=== PATIENT | female | born 1935 | race Caucasian/White ===

== ENCOUNTER → 2016-04-05 | Outpatient (CLI) | payer MEDICARE ==
[2016-04-05 14:01] LABS: CALCIUM LEVEL 9.4 MG/DL (8.8-10.2); CREATININE FOR GFR 1.15 MG/DL (0.55-1.02); GLOMERULAR FILTRATION RATE 48.3 (>32); POTASSIUM SERUM 5.1 MEQ/L (3.5-5.1)
[2016-04-05 14:09] LABS: COLLAGEN ADP 92 SECONDS (56-103)
--- NOTE | 2016-04-05 22:29 | ECGEPIP ---
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 No significant change compared with 10/25/2012. Electronically Signed On 04-05-2016 22:29:16 EST by Indio Ramirez
== END ==
LOC: M LAB 12:44
PROVIDERS: ATTEND Ophthalmology
DX: H25.13 Age-related nuclear cataract, bilateral (principal)

== ENCOUNTER 2016-08-09 14:51 | Observation (INO) | payer MEDICARE ==
[~2016-08-09] VITALS: Ht 167.6 cm; Wt 94.1 kg
[~2016-08-09 14:51] MED LIST: ALEV220T26 PO; COLA100C5 PO; GLIM4TAB PO; IRON65TA PO; JANU100T PO; LATA5OPD OU; LEVO100T5 PO; LEXA1TAB PO; LISI10TA2 PO; METF500T4 PO; REST0.05 OU; SIMV40TA2 PO; SYSTSOL14 OU; TIMO5OPG OU; TRES1INJ SQ
--- NOTE | 2016-08-09 15:47 | REP ---
Clinical: Chest pain . Comparison: 02/03/2014 . Findings: The mediastinum and cardiac silhouette are stable and within normal limits for portable technique. The lung steinberg are clear without acute consolidation, effusion, or pneumothorax. Skeletal structures are intact. Impression: No acute cardiopulmonary process appreciated. Signed by Darian Duron MD 08/09/2016 03:39 P
--- NOTE | 2016-08-09 16:17 | REP ---
Clinical: Pain and swelling . Technique: Rivera scale and color Doppler evaluation using linear high frequency transducer. Findings: Ultrasound examination of the right lower extremity deep venous structures from the common femoral vein to the popliteal vein demonstrates normal compressibility flow and wave patterns in response to respiration and augmentation. There is no evidence for deep venous thrombosis. Impression: No evidence for deep venous thrombosis. Signed by Darian Duron MD 08/09/2016 04:09 P
[2016-08-09 16:40] LABS: BASO % 0.7 % (0.0-1.0); EOS # 0.1 K/mm3 (0.0-0.50); EOS % 2.3 % (0.0-3.0); LARGE UNSTAINED CELL # 0.1 K/mm3 (0.0-0.4); LARGE UNSTAINED CELL % 1.6 % (0.0-4.0); LYMPH # 1.5 K/mm3 (1.5-4.5); LYMPH % 25.5 % (24.0-44.0); MEAN CORPUSCULAR HEMOGLOBIN 23.2 pg (27.0-33.0); MEAN CORPUSCULAR HGB CONC 31.2 g/dl (32.0-36.5); MEAN CORPUSCULAR VOLUME 74.3 fl (80.0-96.0); MONO # 0.2 K/mm3 (0.0-0.8); MONO % 3.9 % (0.0-5.0); NEUTROPHILS # 3.7 K/mm3 (1.8-7.7); PLATELET COUNT, AUTOMATED 347 k/mm3 (150-450); RED CELL DISTRIBUTION WIDTH 15.9 % (11.5-14.5); WHITE BLOOD COUNT 5.6 K/mm3 (4.0-10.0)
[2016-08-09 16:46] LABS: INR 0.99
[2016-08-09 17:12] LABS: ALBUMIN 3.7 GM/DL (3.2-5.2); ALKALINE PHOSPHATASE 62 U/L (45-117); ALT/SGPT 26 U/L (12-78); ANION GAP 7 MEQ/L (8-16); AST/SGOT 20 U/L (15-37); BILIRUBIN,DIRECT 0.1 MG/DL (0.0-0.2); BILIRUBIN,TOTAL 0.4 MG/DL (0.2-1.0); BLOOD UREA NITROGEN 24 MG/DL (7-18); CALCIUM LEVEL 9.1 MG/DL (8.8-10.2); CARBON DIOXIDE LEVEL 28 MEQ/L (21-32); CHLORIDE LEVEL 103 MEQ/L (98-107); CREATININE FOR GFR 1.29 MG/DL (0.55-1.02); FREE T4 1.22 NG/DL (0.76-1.46); GLOMERULAR FILTRATION RATE 42.3 (>32); GLUCOSE, FASTING 209 MG/DL (83-110); POTASSIUM SERUM 4.4 MEQ/L (3.5-5.1); SODIUM LEVEL 138 MEQ/L (136-145); TOTAL PROTEIN 7.8 GM/DL (6.4-8.2)
[2016-08-09 18:07] LABS: FERRITIN 7 NG/ML (8-252); PERCENT SATURATION 5.5 % (13.2-37.4); TOTAL IRON BINDING CAPACITY 435 UG/DL (250-450)
[2016-08-09 18:11] LABS: VITAMIN B12 LEVEL 245 PG/ML (247-911)
[2016-08-09 18:12] LABS: FOLATE 11.8 NG/ML (>5.4)
[2016-08-09] MEDS ORDERED: BIOT10TA2 PO (18:41)
[2016-08-09] MEDS ORDERED: VITA200038 PO (18:41)
[2016-08-09] MEDS ORDERED: ACETAMINOPHEN TAB 650MG DOSE (2X325MG) PO PRN (20:15)
[2016-08-09] MEDS ORDERED: ESCITALOPRAM OXALATE 10 MG TAB (LEXAPRO) PO SCH (21:00)
[2016-08-09] MEDS ORDERED: SITagliptin 50 MG TAB (JANUVIA) PO SCH (21:00)
[2016-08-09] MEDS: SENOKOT S TAB PO SCH (21:00)
[2016-08-09] MEDS ORDERED: LATANOPROST 0.005% OPHTH SOLN 2.5 ML OU SCH (21:00)
[2016-08-09] MEDS ORDERED: SIMVASTATIN 40 MG TAB PO SCH (21:00)
[2016-08-09] MEDS ORDERED: FERROUS SULFATE 325MG TAB PO SCH (21:00)
--- NOTE | 2016-08-09 23:02 | HPE ---
DATE OF ADMISSION: 08/09/2016 PRIMARY CARE PROVIDER: Dr. Kulkarni ATTENDING PHYSICIAN: Dr. Jennings CHIEF COMPLAINT: Abnormal blood test. HISTORY OF THE PRESENT ILLNESS: The patient is an 81-year-old white female with several chronic medical conditions listed below, came to the emergency room (ER) for evaluation of abnormal blood test. History is provided by herself, and she is a reliable historian. Per the patient, about 5 years ago, she was found to have anemia. She underwent esophagogastroduodenoscopy (EGD) as well as colonoscopy, which did not find any bleeding source. She received transfusion at that time. She is supposed to continue to take iron tablets; however, she discontinued recently because she said it gives her very severe constipation. Recently, about 1 or 2 weeks, she said she felt short of breath and chest heaviness, particularly when she ambulates around. And she scheduled to see her primary care provider (PCP) for premedical clearance for her cataract surgery, and she underwent blood test and her primary care doctor, Dr. Kulkarni, told her today her hemoglobin is low and asked that she come back to the hospital for transfusion and asked her to delay her cataract surgery. Otherwise she denies any other symptoms. REVIEW OF SYSTEMS: Denies fever. No chills. No headache. No blurred vision. No sore throat. No chest pain. No cough. No nausea, no vomiting. No abdominal pain. No black stools. No tingling, numbness or weakness in the arms or lower extremities. All other systems were reviewed but negative. PAST MEDICAL HISTORY: 1. Hypertension. 2. Type 2 diabetes. 3. Dyslipidemia. 4. Hypothyroidism. 5. Chronic anemia. PAST SURGICAL HISTORY: 1. Hysterectomy. 2. Appendectomy. FAMILY HISTORY: Both parents and her father and mother had a history of high blood pressure. ALLERGIES: No known drug allergies. SOCIAL HISTORY: Denies tobacco use. Denies alcohol abuse. Denies illicit drug abuse. She is a FULL CODE. MEDICATIONS: Are reviewed. PHYSICAL EXAMINATION: VITAL SIGNS: Temperature 98, heart rate 68, respirations 20, blood pressure 129/60, oxygen saturation is 100% on room air. GENERAL: She is awake, alert, oriented times three. She is not in acute distress. HEENT: Atraumatic. Pupils are equal, round, reactive to light. Ears, nose, and mouth are normal. NECK: No jugular venous distention (JVD). No bruits. LUNGS: Clear. No crackles, no wheezing. HEART; S1, S2 regular. No murmur. ABDOMEN: Soft. Bowel sounds positive, nontender. LOWER EXTREMITIES: No edema in her bilateral lower extremities. SKIN: No rash. No decubitus ulcer. NEUROLOGIC: Nonfocal. Cranial nerves II-XII grossly intact. PSYCHOLOGIC: No depression. No acute psychosis. DIAGNOSTIC AND LAB STUDIES: CBC and differential shows WBC 5.6, hemoglobin and hematocrit 8.1 over 25.8 and platelets 347. Sodium 138, potassium 4.4, chloride 103, bicarbonate 28, BUN is 27, creatinine is 1.29 and glucose is 209. Total iron is 24, transferrin saturation is 5.5%. Liver function test was normal. Chest x-ray normal and lower extremity Doppler, which was normal. IMPRESSION: 1. Iron deficiency anemia. 2. History of high blood pressure. 3. Type 2 diabetes. 4. Dyslipidemia. 5. Hypothyroidism. PLAN: Patient will be admitted to medical-surgical floor for observation. She will type and cross transfuse two units of packed red blood cells due to symptomatic anemia. She had a full workup 5 years ago including esophagogastroduodenoscopy (EGD) and a colonoscopy, which was negative, and her stool was negative for guaiac in the ER today. She may followup with her primary care provider and refer her to see a computer numerical control machinist for possible repeat EGD as well as colonoscopy. Otherwise, she is medically stable. [facility]
[2016-08-09 23:23] VITALS: BP 158/77
[2016-08-10] MEDS: TIMOLOL XE GFS 0.5% OPHTH 5 ML OU SCH ×2 (01:17→10:12)
[2016-08-10] MEDS: metFORMIN XR 500MG TAB *GLUCOPHAGE XR PO SCH ×2 (01:17→10:11)
[2016-08-10 06:00] VITALS: BP 158/78
[2016-08-10] MEDS ORDERED: LEVOTHYROXINE 100MCG TABLET (0.1MG) PO SCH (06:00)
[2016-08-10 06:37] LABS: MEAN CORPUSCULAR HEMOGLOBIN 24.5 pg (27.0-33.0); MEAN CORPUSCULAR HGB CONC 32.1 g/dl (32.0-36.5); MEAN CORPUSCULAR VOLUME 76.5 fl (80.0-96.0); PLATELET COUNT, AUTOMATED 316 k/mm3 (150-450); RED CELL DISTRIBUTION WIDTH 16.9 % (11.5-14.5); WHITE BLOOD COUNT 8.2 K/mm3 (4.0-10.0)
[2016-08-10 06:46] LABS: CALCIUM LEVEL 8.7 MG/DL (8.8-10.2); CREATININE FOR GFR 1.09 MG/DL (0.55-1.02); GLOMERULAR FILTRATION RATE 51.4 (>32); POTASSIUM SERUM 3.8 MEQ/L (3.5-5.1)
[2016-08-10] MEDS ORDERED: GLIMEPIRIDE 2 MG TAB PO SCH (07:30)
[2016-08-10 07:31] LABS: RETIC HEMOGLOBIN CONTENT CHr 25.5 PG (24-36); RETICULOCYTE ABSOLUTE ADVIA212 80 x10(9)/L (17-77)
--- NOTE | 2016-08-10 07:35 | ECGEPIP ---
Stationary ECG Study [facility] - ED Test Date: 2016-08-09 Pat Name: GENI HOWARD Department: Room: - Gender: F Director Of Rehabilitation: JT : 1935 Requested By: Cierra Jeronimo Order Number: [id number] Reading MD: Cierra Jeronimo Measurements Intervals [place] Rate: 68 P: 72 PA: 185 QRS: 37 QRSD: 79 T: 85 QT: 398 QTc: 426 Interpretive Statements SINUS RHYTHM NONSPECIFIC T-WAVE ABNORMALITY DECREASED RATE 04/05/16 Electronically Signed On 08-10-2016 7:34:50 EDT by Cierra Jeronimo
[2016-08-10 07:41] LABS: PERCENT SATURATION 19.7 % (13.2-37.4)
[2016-08-10 07:43] LABS: REASON FOR REVIEW COMPREHENSIVE REVIEW
[2016-08-10] MEDS ORDERED: GLUCOSE 4 GM CHEW TABLET PO PRN (08:15)
[2016-08-10] MEDS ORDERED: GLUCAGON FOR INJ 1 MG VIAL (J1610) SC PRN (08:15)
[2016-08-10] MEDS ORDERED: DEXTROSE 50% 50 ML SYRINGE IV PRN (08:15)
[2016-08-10] MEDS ORDERED: SENN1TAB2 PO (08:54)
[2016-08-10] MEDS ORDERED: IRON65TA PO (08:54)
[2016-08-10] MEDS ORDERED: hydroCHLOROthiazide 12.5 MG CAPSULE PO SCH (09:00)
[2016-08-10] MEDS ORDERED: VITAMIN D 1,000 INTERNATIONAL UNITS TABLET PO SCH (09:00)
[2016-08-10] MEDS ORDERED: LISINOPRIL 10 MG TAB PO SCH (09:00)
[2016-08-10] MEDS: SENOKOT S TAB PO SCH (10:11)
[2016-08-10 10:12] VITALS: BP 158/71
[2016-08-10] MEDS ORDERED: B121000T PO (13:10)
--- NOTE | 2016-08-10 13:51 | DSES ---
DATE OF ADMISSION: 08/09/2016 DATE OF DISCHARGE: 08/10/2016 DISCHARGE DIAGNOSIS: Symptomatic anemia. SECONDARY DIAGNOSES: 1. Constipation. 2. Hypertension. 3. Type 2 diabetes. 4. Dyslipidemia. 5. Hypothyroidism. HOSPITAL COURSE: The patient is an 81-year-old female who was having preoperative risk stratification completed by her primary care provider and was found to have anemia. The patient reported that she has been feeling unwell for the last several weeks since she stopped taking her iron supplement. She tells me that she was having dyspnea on exertion and fatigue prior to presenting to the emergency room where she was found to have a hemoglobin of 8.1. She did receive 2 units and her hemoglobin improved to 9.5. She was found with appropriate reticulocytosis, but has significant iron deficiency anemia. The patient reportedly had EGD and colonoscopy five years ago without any etiology found to explain her iron deficiency anemia. She was also reportedly seen by ms sql developer in [place] at the same time and tells me that she had every test in the world done and there was no answer given to her as to why she has iron deficiency anemia. She has been stable on iron supplementation for several years; however, since she has stopped taking it in the recent weeks due to constipation. The patient reports that she feels completely back to normal after 2 units of packed red blood cells. Occult stool for blood in the emergency room was negative. There is no evidence of acute bleeding or acute hemorrhage. She has had a positive response to blood. At this time, she is medically stable for discharge home. SUBJECTIVE: The patient reports that she feels well. She has no complaints and wants to go home. VITAL SIGNS: Temperature 99.6, pulse 72, respiratory rate 19, blood pressure 158/78, oxygen saturation 96% on room air. GENERAL: She is a very pleasant, elderly, female, obese, lying flat in bed in no distress. HEENT: Cranial nerves II-XII are grossly intact. She has moist mucous membranes. No elevation in central venous pressure. She is not pale. CARDIOVASCULAR EXAMINATION: S1, S2 regular. RESPIRATORY EXAMINATION: Clear. ABDOMINAL EXAMINATION: Grossly obese. EXTREMITIES: No clubbing, cyanosis or edema. LABORATORY DATA: WBC 8.2, hemoglobin 9.5, hematocrit 29.5, platelet count 316. Reticulocyte percent 2.0. Chemistry panel: Sodium 141, potassium 3.8, chloride 106, bicarbonate 29, TSH within normal limits. INR within normal limits. Peripheral smear reveals microcytic hypochromic anemia with increased reticulocytosis suggestive of iron deficiency anemia of occult blood loss. She had a duplex of the lower extremities that did not reveal deep vein thrombosis (DVT). ASSESSMENT AND PLAN: This is an 81-year-old female with symptomatic anemia, status post transfusion. 1. Symptomatic anemia, resolved, status post transfusion. Etiology for symptomatic anemia remains unclear. Although she has had an extensive workup in the past, it appears to be a very slow chronic process and normally controlled with oral iron supplementation. At this time, she has been restarted on oral iron supplementation, adherent to compliance and necessity of this medication have been stressed. She is also started on stool softener to help remove the constipation, which mitigated her from using it in the past. I recommend that she undergo an outpatient workup once again to explore etiologies for her iron deficiency anemia, including repeat EGD, colonoscopy and possibly even repeat hematology consultation. At this time, I will also start her on B12 supplementation, as B12 level is quite low also. 2. Vitamin D deficiency. Continue with supplementation. 3. Mood disorder. Continue with Lexapro. 4. Type 2 diabetes. Continue with glimepiride, metformin and Januvia. 5. Dry eyes. Continue with drops. 6. Cataracts. Continue with Timolol, Xalatan. 7. Hypothyroidism. Continue with Synthroid. 8. Hypertension. Continue with hydrochlorothiazide/Lisinopril combination. 9. Osteoarthritis. Continue with naproxen. 10. Dyslipidemia. Continue with simvastatin. DISPOSITION: The patient is being discharged home. She is independent with her activities of daily living and at her functional baseline. Her clinical status is improved. Activity and diet are as prior to admission. She is to followup with her primary care provider within 7 days. She is to return to the emergency room if her symptoms worsen. DISCHARGE MEDICATIONS: At the time of discharge: - vitamin B12 1000 mcg daily - Senna 8.6/50 one tablet twice a day - Biotin, vitamin H daily - vitamin D3 2000 units daily - Lexapro 10 mg at night - glimepiride 4 mg daily - Xalatan one drop in each eye daily at bedtime - Synthroid 100 mcg daily - Lisinopril/hydrochlorothiazide 10/12.5 mg at night - metformin 1 gram twice a day - naproxen 220 mg once daily as needed - Restasis 0.5% one drop in each eye twice a day - simvastatin 40 mg at night - Januvia 100 mg at bedtime - Systane 0.6% solution one drop in each eye twice a day - Timolol 0.5% one drop in each eye twice a day - Tresiba flex touch 108 units subcutaneously at night - iron 325 mg by mouth twice a day Greater than 30 minutes was spent organizing safe disposition. MTDD
== END 2016-08-10 12:08 | disposition home or self-care (01) ==
LOC: M ED 14:51 → M ED INP 20:11 → M MSPAV 23:22
PROVIDERS: ADMIT Hospitalist; ATTEND Internal Medicine
DX: D64.9 Anemia, unspecified (principal); E55.9 Vitamin D deficiency, unspecified; K59.00 Constipation, unspecified; R06.02 Shortness of breath; I10 Essential (primary) hypertension; E11.9 Type 2 diabetes mellitus without complications; E78.5 Hyperlipidemia, unspecified; E03.9 Hypothyroidism, unspecified; F39 Unspecified mood [affective] disorder; Z79.899 Other long term (current) drug therapy
CPT/HCPCS: 36415; 36430; 71010; 80048; 80076; 82550; 82553; 82607; 82728; 82746; 83550; 83880; 84439; 84443; 84484; 85025; 85027; 85046; 85610; 86850; 86870; 86900; 86901; 86920; 93005; 93041; 93971; 94760; 99285; G0378; P9016

== ENCOUNTER 2016-09-22 09:36 | Day surgery (SDC) | payer MEDICARE ==
--- NOTE | 2016-09-14 18:48 | CR ---
PREOPERATIVE EVALUATION: 09/07/2016 CONSULTING PHYSICIAN: Jon bunch MD SURGEON: Bishnu Collins DO PROPOSED PROCEDURE: Cataract extraction. HISTORY OF PRESENT ILLNESS: This is a very pleasant 81-year-old patient of mine who presents today for operative evaluation and consultation. Previous evaluation lead to the finding the patient was acutely anemic and required transfusions. At this point, the patient feels significantly better after receiving two units, although she continues to be somewhat anemic. It appears relatively slow that she should be able to have surgery without difficulty. The patient's other medical issues are generally stable. She does have uncontrolled diabetes, but blood sugars have improved. She had a rule out evaluation for myocardial infarction ([place]) during the hospital stay for which she had her evaluation and was found not to have any acute cardiac issues. She denies any respiratory issues. No history of asthma, has done well previously. The patient's surgery is now planned for 09/16/2016 and appears appropriate. Again, she has had no respiratory or anesthesia issues. No known cardiac issues; however, there is significant risk due to her diabetes, hypertension, hyperlipidemia and now new anemia for which she is occult blood negative. PAST MEDICAL HISTORY: 1. Type 2 diabetes. 2. Hypertension. 3. Hyperlipidemia. 4. Hypothyroidism. 5. Acute on chronic anemia. 6. Glaucoma. PAST SURGICAL HISTORY: 1. Appendectomy. 2. 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 Roldan in 1972. MEDICATIONS INCLUDE: - metformin 500 mg two tablets twice a day - Tresiba 108 units subcutaneous daily - Colace 100 mg twice a day - ferrous sulfate 325 mg daily - timolol eye drops every morning - levothyroxine 100 mcg by mouth daily - lisinopril/hydrochlorothiazide 10/12.5 mg daily - glimepiride 1 mg by mouth daily - simvastatin 40 mg daily - Januvia 100 mg daily - Xalatan eye drops - Lexapro 10 mg daily ALLERGIES: No known drug allergies. FAMILY HISTORY: Father of a myocardial infarction ([place]), mother due to Alzheimer's. SOCIAL HISTORY: The patient is retired. Her previously works for the [employer]. He in 1990. They have no children together. She has three brothers, who live locally and their families. She has no children of her own. She is a former smoker, smoked from ages 20 to 36, quit at age 36. Denies any alcohol use. REVIEW OF SYSTEMS: As per history of present illness. Otherwise 10 system review she is specifically not having any cardiac symptoms. No chest pain, pressure, headaches, vision changes, respiratory issues. She feels good when she exerts herself. PHYSICAL EXAMINATION: GENERAL: This is a very pleasant woman of her stated age , in no acute distress, nontoxic, alert and oriented times three. She is somewhat anxious. HEENT: Atraumatic, normocephalic. Pupils equal, round, and reactive to light and accommodation. Extraocular motion is intact. No lesions of the lid or conjunctivae. Oral cavity and oropharynx are benign, as is the remainder of the face. NECK: Supple. No lymphadenopathy or thyromegaly. HEART: Regular rate and rhythm. S1, S2. No murmurs LUNGS: Clear to auscultation bilaterally. No rales, rhonchi or wheezes. ABDOMEN: Obese, but soft, nontender, nondistended. EXTREMITIES: No clubbing, cyanosis or edema today. NEUROLOGIC: Nonfocal. RECENT LABORATORY: Show glucose 171, creatine of 1.2. The remainder of the electrolytes are normal. White blood count (WBC) of 5.5, hemoglobin 8.5, platelets 299. Electrocardiogram (EKG) completed 08/09/2016. Normal sinus rhythm with some nonspecific ST-T changes that had not changed from prior. The patient did have a rule out in the emergency department (ED) recently with labs and two units of blood, but has been doing significantly well since then. IMPRESSION: 1. Preoperative evaluation and consultation: The patient is at risk with known diabetes, as well as some anemia. She does appear appropriate for having cataract surgery at this point in time and will followup with me closely, as well as hematology for her acute on chronic anemia. On recent evaluation, the patient was symptomatic, but at this point in time is not symptomatic and looks forward to surgical intervention. Fortunately, she has no significant respiratory issues, although she is obese and precaution should be taken. She has no known snoring or apneic spells. The patient otherwise has had no issues with anesthesia in the past and feels well and again is appropriate for surgery at this time. 2. Cataracts. The patient looks forward to cataract extraction and better vision. 3. Diabetes type 2. The patient's hemoglobin A1c has been elevated over 10. She has been working on this. However, looks forward to cataract extraction and feels that this is important for her, although she does understand the need for ongoing improvement in her blood sugar control. 4. Hypertension on good control on present medication, will continue. 5. Hypothyroidism, doing well on present dose of levothyroxine, will continue. 6. Anemia. The patient recently had transfusion and will be following up for further evaluation, but appears to be appropriate for cataract surgery at this point. 7. Glaucoma. The patient is following Dr. Collins for this. 8. Mood disorder. Good results on Lexapro. The patient is very pleasant, interactive. 9. Hyperlipidemia. Doing well on simvastatin with good results. 10. Ongoing care. I am going to see her again in the office as discussed. She will also be seen in hematology and will followup appropriately. BLANCA
[~2016-09-22] VITALS: Ht 167.6 cm; Wt 89.8 kg
[~2016-09-22 09:36] MED LIST changes: +ACETYLCHOLINE OPHTH SOLN 1% 2ML (MIOCHOL-E) As Ordered ONE; +B121000T PO; +BALANCED SALT IRRIGATION SOLUTION 500ML BAG (FOR OR EYE MACHINE) As Ordered ONE; +BIOT10TA2 PO; +DUOVISC (0.50ML VISCOAT/0.55ML PROVISC) OPHTH KIT As Ordered ONE; +LIDOCAINE 0.75%/EPINEPHRINE 0.025% IN BSS 1ML SYR INTRACAMERAL (OR ONLY) As Ordered ONE; +LIDOCAINE 4% INJ 5 ML AMP As Ordered ONE; +MIDAZOLAM INJ 2 MG/2 ML VIAL (J2250) As Ordered ONE; +OFLOXACIN 0.3 % (OCUFLOX) OPTH SOL 5ML XX ONE; +PHENYLEPHRINE 2.5% OPHTH SOL 2ML XX ONE; +POVIDONE-IODINE 5% OPHTH PREP SOL 30ML As Ordered ONE; +PROPARACAINE 0.5% OPHTH SOL 15ML XX ONE; +SENN1TAB2 PO; +TROPICAMIDE 1% OPHTH SOLN 2ML XX ONE; +VITA200038 PO; +fentaNYL 100 MCG/2 ML INJECTION (J3010) As Ordered ONE
[2016-09-22] MEDS ORDERED: LIDOCAINE 1% SDV 5 ML VIAL SQ ONE (09:45)
[2016-09-22] MEDS ORDERED: LR 1,000 ML IV ONE (09:45)
[2016-09-22 12:00] VITALS: BP 112/53
[2016-09-22] MEDS ORDERED: CEFUROXIME 1MG/0.1ML INTRACAMERAL INJ As Ordered ONE (14:27)
[2016-09-22] MEDS ORDERED: LIDOCAINE 4% TOPICAL SOLN 50 ML BTL TOP ONE (17:31)
--- NOTE | 2016-09-23 07:00 | RO ---
DATE OF PROCEDURE: 09/22/2016 PREOPERATIVE DIAGNOSIS: Visually significant nuclear sclerotic cataract left eye. POSTOPERATIVE DIAGNOSIS: Visually significant nuclear sclerotic cataract left eye. PROCEDURE: Cataract extraction with use of phacoemulsification, and placement of intraocular lens, AU00T0, 21.0 diopter left eye. SURGEON: Bishnu Collins DO CANTILEVER CRANE OPERATOR: ANESTHESIA: Local with monitored anesthesia care (MAC). COMPLICATIONS: None. POSTOPERATIVE CONDITION: Stable. INDICATION FOR SURGERY: Blurred vision left eye affecting patient's activities of daily living. DESCRIPTION OF PROCEDURE: The patient was seen in the preoperative area and properly identified. The correct operative eye was identified and marked. Attention was turned to that eye. The patient received topical antibiotics in the preoperative area. The patient then received topical dilating drops consisting of Tropicamide and Phenylephrine. The patient was then transferred to the operating room. The correct side was re-identified. The patient received topical anesthetics and antibiotics on the surface of the eye. The eye was prepped and draped in a sterile fashion. The upper and lower eyelids were isolated with Tegaderm tape, and the lids were held open with an adjustable speculum. Using a sideport blade, a paracentesis incision was made. Intraocular preservative-free lidocaine was then injected into the anterior chamber. Viscoelastic was then injected into the anterior chamber through the paracentesis. Using a 2.65 mm sharp-tipped keratome, the anterior chamber was entered via a temporal clear corneal incision. A continuous curvilinear capsulorrhexis was created with the aid of a 26g cystotome and utrata forceps. Hydrodissection was performed with balanced salt solution (BSS) on a blunt cannula until the nucleus was freely mobile. The crystalline lens was phacoemulsified and aspirated. Additional cohesive viscoelastic was placed into the capsular bag to deepen it. An AU00T0, 21.0 diopter lens was placed into the capsular bag and confirmed by visualizing the continuous curvilinear capsulorrhexis. Additional irrigation and aspiration was used to remove cortical material and remaining viscoelastic. The clear corneal incision was hydrated with BSS on a blunt cannula. The lens was well positioned. The incisions were then tested for leaks and found to be negative. The eye was then palpated for appropriate pressure and adjusted accordingly with BSS. The eyelid speculum was carefully removed. A shield was placed over the eye. The patient tolerated the procedure well and was discharged to the recovery unit in a stable condition. BLANCA
== END 2016-09-22 12:11 | disposition home or self-care (01) ==
LOC: M SDC 09:36
PROVIDERS: ATTEND Ophthalmology
DX: H25.12 Age-related nuclear cataract, left eye (principal); I10 Essential (primary) hypertension; E78.5 Hyperlipidemia, unspecified; E11.9 Type 2 diabetes mellitus without complications; Z79.4 Long term (current) use of insulin; E03.9 Hypothyroidism, unspecified; F41.9 Anxiety disorder, unspecified; F32.9 Major depressive disorder, single episode, unspecified; Z87.891 Personal history of nicotine dependence; Z79.899 Other long term (current) drug therapy
CPT/HCPCS: 66984; J2250; J3010; V2632

== ENCOUNTER → 2016-10-13 | Day surgery (SDC) | payer MEDICARE ==
[~2016-10-13] VITALS: Ht 167.6 cm; Wt 90.0 kg
[~2016-10-13] MED LIST changes: +CEFUROXIME 1MG/0.1ML INTRACAMERAL INJ As Ordered ONE; -LIDOCAINE 4% INJ 5 ML AMP As Ordered ONE; +LR 1,000 ML IV SCH; +LR 500 ML ONE; +OFLOXACIN 0.3 % (OCUFLOX) OPTH SOL 5ML OD ONE; +PHENYLEPHRINE 2.5% OPHTH SOL 2ML OD ONE; +PROPARACAINE 0.5% OPHTH SOL 15ML OD ONE; +TROPICAMIDE 1% OPHTH SOLN 2ML OD ONE
[2016-10-13 10:03] VITALS: BP 144/63
--- NOTE | 2016-10-14 15:26 | RO ---
DATE OF PROCEDURE: 10/13/2016 PREOPERATIVE DIAGNOSIS: Visually significant nuclear sclerotic cataract right eye. POSTOPERATIVE DIAGNOSIS: Visually significant nuclear sclerotic cataract right eye. PROCEDURE: Cataract extraction with use of phacoemulsification, and placement of intraocular lens, AU00T0, 22.0 D, right eye. SURGEON: Bishnu Collins DO SPOUT LINER: ANESTHESIA: Local with monitored anesthesia care (MAC). COMPLICATIONS: None. POSTOPERATIVE CONDITION: Stable. INDICATION FOR SURGERY: Blurred vision right eye affecting patient's activities of daily living. DESCRIPTION OF PROCEDURE: The patient was seen in the preoperative area and properly identified. The correct operative eye was identified and marked. Attention was turned to that eye. The patient received topical antibiotics in the preoperative area. The patient then received topical dilating drops consisting of Tropicamide and Phenylephrine. The patient was then transferred to the operating room. The correct side was re-identified. The patient received topical anesthetics and antibiotics on the surface of the eye. The eye was prepped and draped in a sterile fashion. The upper and lower eyelids were isolated with Tegaderm tape, and the lids were held open with an adjustable speculum. Using a sideport blade, a paracentesis incision was made. Intraocular preservative-free lidocaine was then injected into the anterior chamber. Viscoelastic was then injected into the anterior chamber through the paracentesis. Using a 2.6 mm sharp-tipped keratome, the anterior chamber was entered via a temporal clear corneal incision. A continuous curvilinear capsulorrhexis was created with the aid of a 26g cystotome and utrata forceps. Hydrodissection was performed with balanced salt solution (BSS) on a blunt cannula until the nucleus was freely mobile. The crystalline lens was phacoemulsified and aspirated. Additional cohesive viscoelastic was placed into the capsular bag to deepen it. An AU00T0, 22.0 D was placed into the capsular bag and confirmed by visualizing the continuous curvilinear capsulorrhexis. Additional irrigation and aspiration was used to remove cortical material and remaining viscoelastic. The clear corneal incision was hydrated with BSS on a blunt cannula. The lens was well positioned. The incisions were then tested for leaks and found to be negative. The eye was then palpated for appropriate pressure and adjusted accordingly with BSS. The eyelid speculum was carefully removed. A shield was placed over the eye. The patient tolerated the procedure well and was discharged to the recovery unit in a stable condition. BLANCA
== END | disposition home or self-care (01) ==
LOC: M SDC 09:21
PROVIDERS: ATTEND Ophthalmology
DX: H25.11 Age-related nuclear cataract, right eye (principal); I10 Essential (primary) hypertension; E78.5 Hyperlipidemia, unspecified; E11.9 Type 2 diabetes mellitus without complications; E03.9 Hypothyroidism, unspecified; F41.9 Anxiety disorder, unspecified; F32.9 Major depressive disorder, single episode, unspecified; Z87.891 Personal history of nicotine dependence; Z79.899 Other long term (current) drug therapy
CPT/HCPCS: 66984; J2250; J3010; V2632

== ENCOUNTER → 2016-11-02 | Outpatient (REF) | payer MEDICARE ==
[~2016-11-02] MED LIST changes: -ACETYLCHOLINE OPHTH SOLN 1% 2ML (MIOCHOL-E) As Ordered ONE; -BALANCED SALT IRRIGATION SOLUTION 500ML BAG (FOR OR EYE MACHINE) As Ordered ONE; -CEFUROXIME 1MG/0.1ML INTRACAMERAL INJ As Ordered ONE; -DUOVISC (0.50ML VISCOAT/0.55ML PROVISC) OPHTH KIT As Ordered ONE; -LIDOCAINE 0.75%/EPINEPHRINE 0.025% IN BSS 1ML SYR INTRACAMERAL (OR ONLY) As Ordered ONE; -LR 1,000 ML IV SCH; -LR 500 ML ONE; -MIDAZOLAM INJ 2 MG/2 ML VIAL (J2250) As Ordered ONE; -OFLOXACIN 0.3 % (OCUFLOX) OPTH SOL 5ML OD ONE; -OFLOXACIN 0.3 % (OCUFLOX) OPTH SOL 5ML XX ONE; -PHENYLEPHRINE 2.5% OPHTH SOL 2ML OD ONE; -PHENYLEPHRINE 2.5% OPHTH SOL 2ML XX ONE; -POVIDONE-IODINE 5% OPHTH PREP SOL 30ML As Ordered ONE; -PROPARACAINE 0.5% OPHTH SOL 15ML OD ONE; -PROPARACAINE 0.5% OPHTH SOL 15ML XX ONE; -TROPICAMIDE 1% OPHTH SOLN 2ML OD ONE; -TROPICAMIDE 1% OPHTH SOLN 2ML XX ONE; -fentaNYL 100 MCG/2 ML INJECTION (J3010) As Ordered ONE
[2016-11-02 14:56] LABS: TOTAL PROTEIN 7.8 GM/DL (6.4-8.2)
[2016-11-02 18:14] LABS: RETIC HEMOGLOBIN CONTENT CHr 26.5 PG (24-36); RETICULOCYTE % 2.7 % (0.5-1.5)
[2016-11-03 09:12] LABS: FERRITIN 11 NG/ML (8-252); PERCENT SATURATION 10.6 % (13.2-45.0); TOTAL IRON BINDING CAPACITY 405 UG/DL (250-450)
[2016-11-03 13:43] LABS: ALBUMIN 4.06 GM/DL (3.29-5.55); GAMMA GLOBULIN % 18.5 % (11.1-18.8)
== END ==
LOC: M LAB REF 09:45
PROVIDERS: ATTEND Internal Medicine Medical Oncology
DX: D64.9 Anemia, unspecified (principal)

== ENCOUNTER → 2017-01-19 | Outpatient (REF) | payer MEDICARE ==
[2017-01-19 16:48] LABS: PERCENT SATURATION 14.8 % (13.2-45.0)
== END ==
LOC: M LAB REF 15:44
PROVIDERS: ATTEND Internal Medicine Medical Oncology
DX: D50.9 Iron deficiency anemia, unspecified (principal)

== ENCOUNTER → 2017-01-31 | Day surgery (SDC) | payer MEDICARE ==
[~2017-01-31] MED LIST changes: -ALEV220T26 PO; -B121000T PO; -BIOT10TA2 PO; -COLA100C5 PO; -GLIM4TAB PO; -IRON65TA PO; -JANU100T PO; -LATA5OPD OU; -LEVO100T5 PO; -LEXA1TAB PO; -LISI10TA2 PO; -METF500T4 PO; -REST0.05 OU; -SENN1TAB2 PO; +SIMETHICONE 40MG/0.6ML DROPS 30ML As Ordered; -SIMV40TA2 PO; -SYSTSOL14 OU; -TIMO5OPG OU; -TRES1INJ SQ; -VITA200038 PO
== END | disposition home or self-care (01) ==
LOC: M OPP 08:00
DX: D50.9 Iron deficiency anemia, unspecified (principal); Z53.9 Procedure and treatment not carried out, unspecified reason

== ENCOUNTER → 2017-03-15 | Outpatient (REF) | payer MEDICARE ==
[2017-03-15 20:58] LABS: FERRITIN 22 NG/ML (8-252); IRON (FE) 71 UG/DL (50-170); TOTAL IRON BINDING CAPACITY 374 UG/DL (250-450)
== END ==
LOC: M LAB REF 19:50
DX: D50.9 Iron deficiency anemia, unspecified (principal)
CPT/HCPCS: 83550

== ENCOUNTER → 2017-06-01 | Outpatient (REF) | payer MEDICARE, BC ==
[2017-06-01 18:26] LABS: FERRITIN 25 NG/ML (8-252); IRON (FE) 78 UG/DL (50-170); PERCENT SATURATION 20.4 % (13.2-45.0); TOTAL IRON BINDING CAPACITY 382 UG/DL (250-450)
== END ==
LOC: M LAB REF 17:46
DX: D50.9 Iron deficiency anemia, unspecified (principal)
CPT/HCPCS: 83550

== ENCOUNTER 2017-06-30 07:15 | Day surgery (SDC) | payer MEDICARE ==
[~2017-06-30 07:15] MED LIST changes: +LIDOCAINE 2% INJ 100 MG/5 ML SDV (FOR ANES.) As Ordered; +PROPOFOL 200 MG/20 ML VIAL As Ordered; -SIMETHICONE 40MG/0.6ML DROPS 30ML As Ordered
[2017-06-30] MEDS: NS 1,000 ML IV (07:30)
[2017-06-30 07:56] LABS: BEDSIDE GLUCOSE 105 MG/DL (83-110)
== END 2017-06-30 10:01 | disposition home or self-care (01) ==
LOC: M OPP 07:15
DX: D50.9 Iron deficiency anemia, unspecified (principal); D12.2 Benign neoplasm of ascending colon; K57.30 Diverticulosis of large intestine without perforation or abscess without bleeding; K64.8 Other hemorrhoids; K25.9 Gastric ulcer, unspecified as acute or chronic, without hemorrhage or perforation; I10 Essential (primary) hypertension; R07.89 Other chest pain; E78.5 Hyperlipidemia, unspecified; R01.1 Cardiac murmur, unspecified; E11.9 Type 2 diabetes mellitus without complications; E03.9 Hypothyroidism, unspecified; K44.9 Diaphragmatic hernia without obstruction or gangrene; K21.9 Gastro-esophageal reflux disease without esophagitis; R06.02 Shortness of breath; M19.90 Unspecified osteoarthritis, unspecified site; F41.9 Anxiety disorder, unspecified; H40.9 Unspecified glaucoma; Z78.0 Asymptomatic menopausal state; R32 Unspecified urinary incontinence; Z85.42 Personal history of malignant neoplasm of other parts of uterus; Z88.8 Allergy status to other drugs, medicaments and biological substances; Z79.4 Long term (current) use of insulin; Z79.899 Other long term (current) drug therapy; Z80.42 Family history of malignant neoplasm of prostate; Z80.8 Family history of malignant neoplasm of other organs or systems; Z80.3 Family history of malignant neoplasm of breast
CPT/HCPCS: 45385

== ENCOUNTER → 2017-08-30 | Outpatient (REF) | payer MEDICARE ==
[2017-08-31 14:41] LABS: FERRITIN 33 NG/ML (8-252); IRON (FE) 61 UG/DL (50-170); PERCENT SATURATION 18.1 % (13.2-45.0); TOTAL IRON BINDING CAPACITY 337 UG/DL (250-450)
== END ==
LOC: M LAB REF 08-31 13:57
DX: D50.9 Iron deficiency anemia, unspecified (principal)
CPT/HCPCS: 83550

== ENCOUNTER → 2017-08-30 | Outpatient (CLI) | payer MEDICARE ==
[2017-08-30 17:59] LABS: BASO % 0.5 % (0.0-1.0); EOS # 0.1 10^3/uL (0.0-0.50); EOS % 1.2 % (0.0-3.0); HEMATOCRIT 34.1 % (36.0-47.0); HEMOGLOBIN 11.6 g/dl (12.0-15.5); IMMATURE GRANULOCYTE % 0.4 % (0-3.0); LYMPH # 1.8 10^3/uL (1.5-4.5); LYMPH % 24.4 % (24.0-44.0); MEAN CORPUSCULAR HEMOGLOBIN 27.6 pg (27.0-33.0); MONO # 0.4 10^3/uL (0.0-0.8); MONO % 5.7 % (0.0-5.0); NEUTROPHILS % 67.8 % (36.0-66.0); PLATELET COUNT, AUTOMATED 313 10^3/uL (150-450); RED BLOOD COUNT 4.21 10^6/uL (4.00-5.40); RED CELL DISTRIBUTION WIDTH 13.7 % (11.5-14.5); WHITE BLOOD COUNT 7.3 10^3/uL (4.0-10.0)
[2017-08-30 18:12] LABS: ESTIMATED AVERAGE GLUCOSE 303 MG/DL (60-110); HEMOGLOBIN A1c 12.2 %
[2017-08-30 18:25] LABS: ACETONE/KETONE 7.11 MG/DL (<2.81); ALBUMIN 3.6 GM/DL (3.2-5.2); ALBUMIN/GLOBULIN RATIO 0.84 (1.00-1.93); ALKALINE PHOSPHATASE 91 U/L (45-117); ALT/SGPT 23 U/L (12-78); ANION GAP 8 MEQ/L (8-16); AST/SGOT 15 U/L (7-37); BILIRUBIN,TOTAL 0.6 MG/DL (0.2-1.0); BLOOD UREA NITROGEN 26 MG/DL (7-18); CALCIUM LEVEL 8.9 MG/DL (8.8-10.2); CARBON DIOXIDE LEVEL 32 MEQ/L (21-32); CHLORIDE LEVEL 90 MEQ/L (98-107); CREATININE FOR GFR 1.72 MG/DL (0.55-1.30); GLOMERULAR FILTRATION RATE 30.3 (>32); POTASSIUM SERUM 4.7 MEQ/L (3.5-5.1); SODIUM LEVEL 130 MEQ/L (136-145); TOTAL PROTEIN 7.9 GM/DL (6.4-8.2)
[2017-08-30 18:26] LABS: GLUCOSE, FASTING 635 MG/DL (70-100)
== END ==
LOC: M WUC 16:39
DX: R53.83 Other fatigue (principal); N39.0 Urinary tract infection, site not specified
CPT/HCPCS: 80053

== ENCOUNTER → 2017-08-30 | Outpatient (REF) | payer MEDICARE | LOC: M LAB REF 17:59 | DX: N39.0 Urinary tract infection, site not specified (principal) | CPT/HCPCS: 87086 ==

== ENCOUNTER → 2017-09-05 | Outpatient (REF) | payer MEDICARE ==
[2017-09-05 18:14] LABS: ACETONE/KETONE 1.45 MG/DL (<2.81)
[2017-09-07 15:06] LABS: C-PEPTIDE 1.9 ng/mL (1.1-4.4)
== END ==
LOC: M LAB REF 16:42
DX: E11.65 Type 2 diabetes mellitus with hyperglycemia (principal)
CPT/HCPCS: 84681

== ENCOUNTER → 2017-11-29 | Outpatient (REF) | payer MEDICARE ==
[2017-11-29 19:10] LABS: FERRITIN 12 NG/ML (8-252); IRON (FE) 35 UG/DL (50-170); PERCENT SATURATION 8.9 % (13.2-45.0); TOTAL IRON BINDING CAPACITY 393 UG/DL (250-450)
[2017-11-29 19:49] LABS: HEMATOCRIT 31.5 % (36.0-47.0)
[2017-12-01 11:43] LABS: PRETREATED FOLATE FOR RBCFOL 10.2 NG/ML
== END ==
LOC: M LAB REF 17:12
DX: D64.9 Anemia, unspecified (principal)
CPT/HCPCS: 83550

== ENCOUNTER → 2018-04-19 | Outpatient (REF) | payer MEDICARE ==
[~2018-04-19] MED LIST changes: +ALEV220T26 PO; +B121000T PO; +BIOT10TA2 PO; +COLA100C5 PO; +GLIM4TAB PO; +IRON65TA PO; +JANU100T PO; +LATA5OPD OU; +LEVO100T5 PO; +LEXA1TAB PO; -LIDOCAINE 2% INJ 100 MG/5 ML SDV (FOR ANES.) As Ordered; +LISI10TA2 PO; +METF500T4 PO; -PROPOFOL 200 MG/20 ML VIAL As Ordered; +REST0.05 OU; +SENN1TAB2 PO; +SIMV40TA2 PO; +SYSTSOL14 OU; +TIMO5OPG OU; +TRES1INJ SQ; +VITA200038 PO
[2018-04-20 13:20] LABS: FERRITIN 13 NG/ML (8-252); IRON (FE) 39 UG/DL (50-170); PERCENT SATURATION 9.9 % (13.2-45.0); TOTAL IRON BINDING CAPACITY 392 UG/DL (250-450)
[2018-04-23 11:16] LABS: VITAMIN B12 LEVEL 263 PG/ML
[2018-04-23 11:17] LABS: FOLATE > 24.0 NG/ML
== END ==
LOC: M LAB REF 12:30
PROVIDERS: ATTEND Family Medicine
DX: D50.9 Iron deficiency anemia, unspecified (principal)

== ENCOUNTER → 2018-06-08 | Outpatient (REF) | payer MEDICARE ==
[~2018-06-08] MED LIST changes: +LATA0.0013 OU; -LATA5OPD OU; -SENN1TAB2 PO; +SENN1TAB40 PO; +TIMO0.5S7 OU; -TIMO5OPG OU
== END ==
LOC: M LAB REF 12:52
PROVIDERS: ATTEND Family Medicine
DX: D50.9 Iron deficiency anemia, unspecified (principal)

== ENCOUNTER → 2018-09-27 | Outpatient (REF) | payer MEDICARE ==
[~2018-09-27] MED LIST changes: +LISI10TA15 PO; -LISI10TA2 PO
[2018-09-27 17:48] LABS: PERCENT SATURATION 9.2 % (13.2-45.0)
== END ==
LOC: M LAB REF 16:28
PROVIDERS: ATTEND Nurse Practitioner Adult Health
DX: D64.9 Anemia, unspecified (principal)

== ENCOUNTER 2019-04-06 15:40 | Inpatient (IN) | payer MEDICARE ==
[~2019-04-06] VITALS: Ht 167.6 cm; Wt 76.0 kg
[~2019-04-06 15:40] MED LIST changes: -GLIM4TAB PO; +GLIM4TAB5 PO; +METF-791 PO; -METF500T4 PO; +SENN-53 PO; -SENN1TAB40 PO; -SIMV40TA2 PO; +SIMV40TA20 PO
[2019-04-06 16:07] LABS: VENOUS BASE EXCESS -5.1 (-2.0-2.0); VENOUS HCO3 21.7 MEQ/L (23.0-27.0); VENOUS O2 SATURATION 49.3 % (60.0-80.0); VENOUS PARTIAL PRESSURE CO2 48.2 mmHg (38.0-50.0); VENOUS PH 7.272 UNITS (7.330-7.430); VENOUS STANDARD HCO3 19.4 MEQ/L; VENOUS TOTAL CO2 23.2 MEQ/L (24.0-28.0)
[2019-04-06 16:11] LABS: BASO % 0.6 % (0.0-1.0); EOS % 0.2 % (0.0-3.0); HEMATOCRIT 33.3 % (36.0-47.0); HEMOGLOBIN 9.9 g/dl (12.0-15.5); LYMPH # 0.9 10^3/uL (1.5-5.0); LYMPH % 17.3 % (24.0-44.0); MEAN CORPUSCULAR HEMOGLOBIN 23.9 pg (27.0-33.0); MEAN CORPUSCULAR HGB CONC 29.7 g/dl (32.0-36.5); MEAN CORPUSCULAR VOLUME 80.2 fl (80.0-96.0); MONO # 0.3 10^3/uL (0.0-0.8); MONO % 6.6 % (0.0-5.0); NEUTROPHILS # 3.8 10^3/uL (1.5-8.5); NEUTROPHILS % 74.9 % (36.0-66.0); PLATELET COUNT, AUTOMATED 329 10^3/uL (150-450); RED BLOOD COUNT 4.15 10^6/uL (4.00-5.40)
[2019-04-06] MEDS ORDERED: NS 1,000 ML IV ONE ×2 (16:15→16:45)
[2019-04-06 16:27] LABS: OSMOLALITY SERUM 327 MOSM/KG (280-301)
--- NOTE | 2019-04-06 16:31 | REP ---
Portable chest, 04:14 p.m., single AP view with the the patient sitting: Comparison is 2016. The lung steinberg are clear. The cardiac size is normal. The santosh, mediastinum, and skeletal structures are unremarkable. Impression: Negative portable chest. There is no interval change. Electronically Signed by Anupam Rivera MD 04/06/2019 04:23 P
[2019-04-06 16:44] LABS: CALCIUM LEVEL 8.6 MG/DL (8.8-10.2); CARBON DIOXIDE LEVEL 22 MEQ/L (21-32); CHLORIDE LEVEL 82 MEQ/L (98-107); CREATININE FOR GFR 1.78 MG/DL (0.55-1.30); POTASSIUM SERUM 4.6 MEQ/L (3.5-5.1)
[2019-04-06 16:45] LABS: ACETONE/KETONE 30.73 MG/DL (<2.81); ALBUMIN 3.3 GM/DL (3.2-5.2); ALT/SGPT 14 U/L (12-78); BILIRUBIN,DIRECT 0.2 MG/DL (0.0-0.2); BILIRUBIN,TOTAL 0.6 MG/DL (0.2-1.0); ETHYL ALCOHOL (ETHANOL) < 0.003 % (0.000-0.010); LIPASE 3935 U/L (73-393); MAGNESIUM LEVEL 2.2 MG/DL (1.8-2.4); TOTAL PROTEIN 7.4 GM/DL (6.4-8.2)
[2019-04-06 16:46] LABS: SODIUM LEVEL 116 MEQ/L (136-145)
[2019-04-06 16:55] LABS: BLOOD UREA NITROGEN 36 MG/DL (7-18); GLUCOSE, FASTING 1039 MG/DL (70-100)
[2019-04-06] MEDS ORDERED: INSULIN HUMAN REGULAR 100 UNITS in NS 99 ML IV SCH ×2 (16:55→23:00)
[2019-04-06] MEDS ORDERED: INSULIN IV RATE CHANGE DOCUMENTATION ML/HR XX SCH ×2 (17:00→23:00)
[2019-04-06 17:15] LABS: ESTIMATED AVERAGE GLUCOSE 413 MG/DL (60-110); HEMOGLOBIN A1c > 16.0 %
[2019-04-06] MEDS ORDERED: HumuLIN R (REGULAR) INSULIN (NovoLIN R) **100U/ML** PER UNIT As Ordered ONE (17:35)
[2019-04-06] MEDS ORDERED: HumuLIN R (REGULAR) INSULIN (NovoLIN R) **100U/ML** PER UNIT IV ONE (17:40)
--- NOTE | 2019-04-06 17:42 | REPVR ---
PROCEDURE INFORMATION: Exam: CT Abdomen And Pelvis Without Contrast Exam date and time: 04/06/2019 5:11 PM Age: 84 years old Clinical indication: Abnormal findings; Abnormal lab test; Elevated lipase; Additional info: Elevated lipase TECHNIQUE: Imaging protocol: Computed tomography of the abdomen and pelvis without contrast. Radiation optimization: All CT scans at this facility use at least one of these dose optimization techniques: automated exposure control; mA and/or kV adjustment per patient size (includes targeted exams where dose is matched to clinical indication); or iterative reconstruction. COMPARISON: US PELVIC NON OB COMPLETE 12/26/2013 10:56 AM FINDINGS: Liver: Normal. No mass. Gallbladder and bile ducts: Normal. No calcified stones. No ductal dilation. Pancreas: Slight inflammation demonstrated ventral to the pancreatic tail and adjacent to the proximal descending colon. Finding may indicate mild distal pancreatitis. Adjacent segmental colitis not excluded but considered less likely. Remainder of the pancreas appears unremarkable. Spleen: Normal. No splenomegaly. Adrenals: Normal. No mass. Kidneys and ureters: Normal. No hydronephrosis. Stomach and bowel: There is increased feces throughout the colon consistent with constipation. Appendix: No evidence of appendicitis. Intraperitoneal space: Unremarkable. No free air. No significant fluid collection. Vasculature: The aorta demonstrates mild atherosclerotic calcification. Lymph nodes: Unremarkable. No enlarged lymph nodes. Bladder: Unremarkable as visualized. Reproductive: There has been a hysterectomy. Bones/joints: The spine demonstrates mild degenerative changes. Disc space narrowing throughout the lumbar spine. Mild central spinal stenosis L2-L3, moderate central spinal stenosis L3-L4, moderate to severe central spinal stenosis L4-L5. Bulging annulus L5-S1. Mild anterolisthesis of L4 on L5. Soft tissues: Left inguinal hernia. IMPRESSION: 1. There is increased feces throughout the colon consistent with constipation. 2. There has been a hysterectomy. 3. Slight inflammation demonstrated ventral to the pancreatic tail and adjacent to the proximal descending colon. Finding may indicate mild distal pancreatitis. Adjacent segmental colitis not excluded but considered less likely. Remainder of the pancreas appears unremarkable. Electronically signed by: Tee Fournier On 04/06/2019 17:42:10 PM
[2019-04-06] MEDS ORDERED: TIMO0.5S39 OU (17:57)
[2019-04-06] MEDS ORDERED: XALA0.007 OU (18:03)
[2019-04-06] MEDS ORDERED: MICO2CRE45 TOP (18:03)
[2019-04-06] MEDS ORDERED: ACET-683 PO (18:03)
--- NOTE | 2019-04-06 18:15 | HPEPDOC ---
[facility] Medical History & Physical Date of Admission Apr 06, 2019 Date of Service: Apr 06, 2019 Attending Physician: KIMBERLEY STILES MD History and Physical CHIEF COMPLAINT: Brought from home for medication noncompliance and fatigue HISTORY OF PRESENT ILLNESS: 84-year-old female with past medical history of diabetes mellitus, hypertension, chronic kidney disease and hypothyroidism presents from home with fatigue and medication noncompliance. Patient lives alone, has been noncompliant with medications for at least a few weeks, reports significant fatigue, polydipsia and polyuria, dizziness and recurrent falls. Patient has not taken her insulin in a long time. Patient reports that she no longer has the willpower to live and wishes to go to [facility]. Patient's brother is at bedside who brought her to the hospital today. Patient says that she is fine and wants to go home despite having severely abnormal lab findings. Patient found to have blood glucose greater than 1000, hyperosmolarity, elevated lipase and CT findings consistent with pancreatitis. Patient denies any shortness of breath, chest pain, nausea, vomiting, abdominal pain or diarrhea. 10 point review of system is negative except for above PAST MEDICAL HISTORY: 1. Diabetes mellitus. 2. Hypertension. 3. Hypothyroidism. 4. Chronic kidney disease PAST SURGICAL HISTORY: 1. Hysterectomy. SOCIAL HISTORY: Previous smoker, quit over 30 years ago. Social alcohol use. Denies drug use FAMILY HISTORY: Mother had heart disease ALLERGIES: Please see below. HOME MEDICATIONS: Please see below. PHYSICAL EXAMINATION: VITAL SIGNS: Please see below. GENERAL: Frail HEENT: Normocephalic, atraumatic, dry mucous membranes NECK: Supple CARDIOVASCULAR EXAMINATION: S1, S2, no murmurs RESPIRATORY EXAMINATION: Clear to auscultation, no wheezing ABDOMINAL EXAMINATION: Soft, nontender, nondistended, positive bowel sounds EXTREMITIES: Range of motion intact SKIN: No rash NEUROLOGICAL EXAMINATION: Alert and oriented 3, no focal deficits, patient with right-sided chorea PSYCHIATRIC EXAMINATION: Calm and cooperative LABORATORY DATA: See below. MICROBIOLOGY: Please see below. ASSESSMENT: [84-year-old female with past medical history of chronic kidney disease, diabetes mellitus, hypertension, hypothyroidism, being admitted for d iabetic ketoacidosis and acute pancreatitis. PLAN: 1. Diabetic ketoacidosis pH less than 7.3, elevated beta hydroxybutyrate, anion gap of 12, serum glucose greater than 1000, status post 2 L normal saline bolus in the ED, continue normal saline with 20 mEq of potassium chloride at 250 ml per hour, received 5 units of IV insulin bolus followed by drip, admitted to ICU, hourly fingersticks, nothing by mouth. 2. Acute pancreatitis Continue aggressive IV hydration. 3. Diabetes mellitus. Management as above for now, hemoglobin A1c greater than 16, suggesting chronic noncompliance. Patient reports lack of motivation to live, will consult psychiatry when medically stable. 4. Hypertension. Hold off on lisinopril and hydrochlorothiazide given elevated creatinine. 5. Elevated Creatinine. Unknown if acute or chronic, will monitor with IV hydration. CT abdomen and pelvis showing distended bladder, bladder scan in the ED and straight cath if needed. 6. Hypothyroidism. Continue levothyroxine DVT prophylaxis: Heparin subcutaneous GI prophylaxis: Not needed Vital Signs Vital Signs Date Time Temp Pulse Resp B/P (MAP) Pulse Ox O2 Delivery O2 Flow Rate FiO2 04/06/19 17:11 72 18 137/61 (86) 99 Room Air 04/06/19 15:56 98.9 Laboratory Data Labs 24H Laboratory Tests 2 04/06/19 15:50: Estimated Mean Plasma Glucose 413H, Hemoglobin A1c > 16.0 04/06/19 16:00: Immature Granulocyte % (Auto) 0.4, Neutrophils (%) (Auto) 74.9H, Lymphocytes (%) (Auto) 17.3L, Monocytes (%) (Auto) 6.6H, Eosinophils (%) (Auto) 0.2, Basophils (%) (Auto) 0.6, Neutrophils # (Auto) 3.8, Lymphocytes # (Auto) 0.9L, Monocytes # (Auto) 0.3, Eosinophils # (Auto) 0.0, Basophils # (Auto) 0.0, Nucleated Red Blood Cells % (auto) 0.0, Blood Gas Bicarbonate Standard 19.4, Venous Blood pH 7.272L, Venous Blood Partial Pressure CO2 48.2, Venous Blood Partial Pressure O2 28.0L, Venous Blood Total Carbon Dioxide 23.2L, Venous Blood HCO3 21.7L, Venous Blood Oxygen Saturation 49.3L, Venous Blood Base Excess -5.1L, Anion Gap 12, Glomerular Filtration Rate 29.0L, Osmolality 327H, Calcium Level 8.6L, Magnesium Level 2.2, Total Bilirubin 0.6, Direct Bilirubin 0.2, Aspartate Amino Transf (AST/SGOT) 11, Alanine Aminotransferase (ALT/SGPT) 14, Alkaline Phosphatase 117, Total Protein 7.4, Albumin 3.3, Albumin/Globulin Ratio 0.80L, Lipase 3935H, Ethyl Alcohol Level < 0.003, B-Hydroxybutyrate 30.73H CBC/BMP Laboratory Tests 04/06/19 16:00 Microbiology Microbiology 04/06/19 Blood Culture, Received Pending Home Medications Scheduled (Iron) 325 Mg Tab, 325 MG PO 3XW Biotin (Biotin) Unknown Strength Tab, Unknown Dose PO DAILYPRN Cholecalciferol (Vitamin D3) (Vitamin D3) 2,000 Unit Tab, 2,000 UNIT PO DAILY Cyclosporine (Restasis) 0.05 % Emu, 1 DROP OU BID Docusate Sodium (Colace) 100 Mg Cap, 100 MG PO QHS Escitalopram Oxalate (Lexapro) 10 Mg Tab, 10 MG PO QHS Glimepiride (Glimepiride) 4 Mg Tab, 4 MG PO DAILY Insulin Degludec (Tresiba Flextouch U-200) 200 Unit/Ml Inj, 108 UNIT SQ QHS Latanoprost (Latanoprost) 50 Drop/2.5 Ml Soln, 1 DROP OU QHS Levothyroxine Sodium (Levothyroxine Sodium) 100 Mcg Tab, 100 MCG PO DAILY Lisinopril/Hydrochlorothiazide (Lisinopril-Hctz 10-12.5 mg Tab) 1 Tab Tab, 1 TAB PO QHS Metformin HCl (Metformin HCl ER) 500 Mg Tab, 1,000 MG PO BID Propylene Glycol (Systane Balance) 0.6 % Abby, 1 DROP OU BID Simvastatin (Simvastatin) 40 Mg Tab, 40 MG PO QHS Timolol Maleate (Timolol Maleate) 100 Drop/5 Ml Gel, 1 DROP OU BID Scheduled PRN Naproxen Sodium (Aleve) 220 Mg Tab, 220 MG PO DAILYPRN PRN for PAIN Allergies Coded Allergies: brimonidine (Verified Allergy, Unknown, 05/17/18) dorzolamide (Verified Allergy, Unknown, 05/17/18) A-FIB/CHADSVASC A-FIB History Current/History of A-Fib/PAF?: No KIMBERLEY STILES MD Apr 06, 2019 18:15
[2019-04-06] MEDS: KCL 20MEQ in NS 1000ML 1,000 ML IV SCH ×3 (18:22→22:19)
[2019-04-06] MEDS: HEPARIN SOD (PORCINE) 5000 UNITS/ML VIAL (J1644 PER 1000UNITS) SC SCH (21:00)
[2019-04-06 21:15] LABS: VENOUS BASE EXCESS -7.2 (-2.0-2.0); VENOUS HCO3 18.4 MEQ/L (23.0-27.0); VENOUS O2 SATURATION 94.8 % (60.0-80.0); VENOUS PARTIAL PRESSURE CO2 37.2 mmHg (38.0-50.0); VENOUS PARTIAL PRESSURE O2 80.9 mmHg (30.0-50.0); VENOUS PH 7.312 UNITS (7.330-7.430); VENOUS STANDARD HCO3 18.6 MEQ/L; VENOUS TOTAL CO2 19.5 MEQ/L (24.0-28.0)
[2019-04-06 21:23] LABS: CREATININE FOR GFR 1.64 MG/DL (0.55-1.30); GLOMERULAR FILTRATION RATE 31.9 (>32); POTASSIUM SERUM 3.9 MEQ/L (3.5-5.1)
[2019-04-06 21:32] LABS: CALCIUM LEVEL 7.2 MG/DL (8.8-10.2); CREATININE FOR GFR 1.23 MG/DL (0.55-1.30); GLOMERULAR FILTRATION RATE 44.4 (>32); POTASSIUM SERUM 5.9 MEQ/L (3.5-5.1)
[2019-04-06 23:43] VITALS: BP 117/78
[2019-04-07] VITALS (8 sets, daily range): BP systolic 116–159; BP diastolic 56–68
[2019-04-07] MEDS ORDERED: D5W/0.45% SODIUM CHLORIDE 1,000 ML IV SCH (00:30)
[2019-04-07] MEDS ORDERED: GLUCAGON FOR INJ 1 MG VIAL (J1610) SC PRN (00:30)
[2019-04-07] MEDS ORDERED: DEXTROSE 50% 50 ML SYRINGE IV PRN (00:30)
[2019-04-07] MEDS ORDERED: LEVEMIR (INSULIN DETEMIR) 1 UNITS/0.01ML SC SCH (00:30)
[2019-04-07] MEDS ORDERED: GLUCOSE 4 GM CHEW TABLET PO PRN (00:30)
[2019-04-07 02:49] LABS: CALCIUM LEVEL 7.8 MG/DL (8.8-10.2); CREATININE FOR GFR 1.16 MG/DL (0.55-1.30); GLOMERULAR FILTRATION RATE 47.5 (>32); POTASSIUM SERUM 4.1 MEQ/L (3.5-5.1)
[2019-04-07 06:05] LABS: HEMATOCRIT 27.6 % (36.0-47.0); MEAN CORPUSCULAR HEMOGLOBIN 24.4 pg (27.0-33.0); MEAN CORPUSCULAR HGB CONC 32.6 g/dl (32.0-36.5); MEAN CORPUSCULAR VOLUME 74.8 fl (80.0-96.0); PLATELET COUNT, AUTOMATED 286 10^3/uL (150-450); RED BLOOD COUNT 3.69 10^6/uL (4.00-5.40)
[2019-04-07 06:38] LABS: ALBUMIN 2.7 GM/DL (3.2-5.2); BILIRUBIN,TOTAL 0.3 MG/DL (0.2-1.0); CREATININE FOR GFR 1.14 MG/DL (0.55-1.30); GLOMERULAR FILTRATION RATE 48.5 (>32); MAGNESIUM LEVEL 2.2 MG/DL (1.8-2.4); POTASSIUM SERUM 4.1 MEQ/L (3.5-5.1); TOTAL PROTEIN 6.2 GM/DL (6.4-8.2)
[2019-04-07] MEDS: HumaLOG INSULIN (NovoLOG) PER UNIT SC SCH ×4 (08:18→22:15)
[2019-04-07] MEDS: HEPARIN SOD (PORCINE) 5000 UNITS/ML VIAL (J1644 PER 1000UNITS) SC SCH ×2 (08:18→22:14)
[2019-04-07] MEDS: lisinopriL 10 MG TAB PO SCH (09:00)
[2019-04-07] MEDS ORDERED: LEVEMIR (INSULIN DETEMIR) 1 UNITS/0.01ML SC ONE (11:00)
[2019-04-07] MEDS: LEVOTHYROXINE 100MCG TABLET (0.1MG) PO SCH (11:09)
[2019-04-07] MEDS: hydroCHLOROthiazide 12.5 MG CAPSULE PO SCH (11:09)
[2019-04-07] MEDS: MICONAZOLE TOPICAL 2% CREAM 15GM TOP SCH ×3 (11:13→22:16)
--- NOTE | 2019-04-07 14:16 | REPVR ---
PROCEDURE INFORMATION: Exam: MR Head Without Contrast Exam date and time: 04/07/2019 9:49 AM Age: 84 years old Clinical indication: Weakness, extremity; Right; Additional info: R sided chorea TECHNIQUE: Imaging protocol: MR of the head without contrast. COMPARISON: No relevant prior studies available. FINDINGS: Brain: There is moderate, diffuse parenchymal volume loss. No abnormal restricted diffusion is identified. No parenchymal mass lesions identified. A few small foci of high signal on the T2 and FLAIR sequences are seen in the periventricular and subcortical white matter bilaterally, which is nonspecific but probably related to chronic small vessel ischemic change. Ventricles: The ventricular system demonstrates moderate diffuse compensatory enlargement. Bones/joints: No acute fractures of the skull are identified. Soft tissues: A 1.2 cm ovoid structure with high T2 signal is seen on the left side of the face adjacent to or extending from the left parotid gland, which is not fully included in the field of view and is not fully assessed. Sinuses: There is mild mucosal thickening in the ethmoid sinus, left side of the sphenoid sinus, and inferiorly in the partially visualized left maxillary sinus. No fluid levels. Mastoid air cells: The mastoid air cells are clear. Orbits: The orbits appear unremarkable. Other vasculature: Normal flow voids are seen in the intracranial arteries. IMPRESSION: 1. No evidence of acute infarct, intracranial hemorrhage, or mass lesion. 2. Moderate diffuse volume loss and mild white matter changes, nonspecific but probably related to chronic small vessel ischemic change. Electronically signed by: Ml Winkler On 04/07/2019 14:16:39 PM
--- NOTE | 2019-04-07 19:00 | IPNPDOC ---
Date Seen The patient was seen on 04/07/19. Progress Note SUBJECTIVE: 84-year-old female with past medical history of diabetes mellitus, hypertension, chronic kidney disease and hypothyroidism presents from home with fatigue and medication noncompliance. Patient lives alone, has been noncompliant with medications for at least a few weeks, reports significant fatigue, polydipsia and polyuria, dizziness and recurrent falls. Patient has not taken her insulin in a long time. Patient reports that she no longer has the willpower to live and wishes to go to [facility]. Patient's brother is at bedside who brought her to the hospital today. Patient says that she is fine and wants to go home despite having severely abnormal lab findings. Patient found to have blood glucose greater than 1000, hyperosmolarity, elevated lipase and CT findings consistent with pancreatitis. Patient denies any shortness of breath, chest pain, nausea, vomiting, abdominal pain or diarrhea. 04/07/19 Patient seen in the morning, insulin drip was discontinued. Overnight, received Lantus 10 units and has been started on sliding scale coverage, tolerated breakfast in the morning without any difficulty, no complaints at this time, wishes to go home. She denies any shortness of breath, chest pain, nausea, vomiting, abdominal pain or diarrhea. 10 point review of system is negative except for above PHYSICAL EXAMINATION: VITAL SIGNS: Please see below. GENERAL: Frail HEENT: Normocephalic, atraumatic, moist mucous membranes NECK: Supple CARDIOVASCULAR EXAMINATION: S1, S2, no murmurs RESPIRATORY EXAMINATION: Clear to auscultation, no wheezing ABDOMINAL EXAMINATION: Soft, nontender, nondistended, positive bowel sounds EXTREMITIES: Range of motion intact SKIN: No rash NEUROLOGICAL EXAMINATION: Alert and oriented 3, no focal deficits PSYCHIATRIC EXAMINATION: Calm and cooperative LABORATORY DATA: See below. MICROBIOLOGY: Please see below. ASSESSMENT: 84-year-old female with past medical history of chronic kidney disease, diabetes mellitus, hypertension, hypothyroidism, being admitted for diabetic ketoacidosis and acute pancreatitis. PLAN: 1. Diabetic ketoacidosis Resolved, insulin drip discontinued overnight, Lantus 60 units twice a day, sliding scale insulin coverage with meals and at bedtime, downgraded to MedSurg, continue gentle IV hydration. 2. Acute pancreatitis Continue IV hydration, will check lipase in the morning. 3. Diabetes mellitus. Management as above for now, hemoglobin A1c greater than 16 suggesting chronic noncompliance. Patient reports lack of motivation to live, will consult psychiatry when medically stable. 4. Hypertension. Restart lisinopril and hydrochlorothiazide 5. Acute on chronic kidney disease Improved with IV hydration, will monitor. 6. Hypothyroidism. Continue levothyroxine DVT prophylaxis: Heparin subcutaneous GI prophylaxis: Not needed VS, I&O, 24H, Fishbone Vital Signs/I&O Vital Signs Date Time Temp Pulse Resp B/P (MAP) Pulse Ox O2 Delivery O2 Flow Rate FiO2 04/07/19 16:00 99.3 74 20 131/59 (83) 99 Room Air I&O- Last 24 Hours up to 6 AM 04/07/19 06:00 Intake Total 1000 ml Balance 1000 ml Laboratory Data 24H LABS Laboratory Tests 2 04/06/19 19:34: Bedside Glucose (Misc Panel) > 600*H 04/06/19 20:20: Anion Gap 11, Glomerular Filtration Rate 31.9L, Calcium Level 8.0L 04/06/19 20:38: Bedside Glucose (Misc Panel) 401H 04/06/19 20:54: Anion Gap 5L, Glomerular Filtration Rate 44.4, Calcium Level 7.2L 04/06/19 21:03: Blood Gas Puncture Site UNKNOWN, Blood Gas Bicarbonate Standard 18.6, Venous Blood pH 7.312L, Venous Blood Partial Pressure CO2 37.2L, Venous Blood Partial Pressure O2 80.9H, Venous Blood Total Carbon Dioxide 19.5L, Venous Blood HCO3 18.4L, Venous Blood Oxygen Saturation 94.8H, Venous Blood Base Excess -7.2L 04/06/19 21:37: Bedside Glucose (Misc Panel) 325H 04/06/19 23:08: Bedside Glucose (Misc Panel) 152H 04/07/19 00:04: Bedside Glucose (Misc Panel) 115H 04/07/19 02:08: Anion Gap 10, Glomerular Filtration Rate 47.5, Calcium Level 7.8L 04/07/19 02:32: Bedside Glucose (Misc Panel) 310H 04/07/19 05:50: Anion Gap 8, Glomerular Filtration Rate 48.5, Calcium Level 8.0L, Nucleated Red Blood Cells % (auto) 0.0, Magnesium Level 2.2, Iron Level 22L, Total Iron Binding Capacity 274, Transferrin % Saturation 8.0L, Ferritin 17, Total Bilirubin 0.3, Aspartate Amino Transf (AST/SGOT) 15, Alanine Aminotransferase (ALT/SGPT) 14, Alkaline Phosphatase 82, Total Protein 6.2L, Albumin 2.7L, Albumin/Globulin Ratio 0.77L 04/07/19 08:00: Bedside Glucose (Misc Panel) 355H 04/07/19 14:00: Bedside Glucose (Misc Panel) 365H 04/07/19 14:44: Bedside Glucose (Misc Panel) 325H 04/07/19 16:35: Bedside Glucose (Misc Panel) 326H CBC/BMP Laboratory Tests 04/06/19 20:20 04/06/19 20:54 04/07/19 02:08 04/07/19 05:50 Microbiology Microbiology 04/06/19 Blood Culture - Preliminary, Resulted No growth after 24 hours . All specim... KIMBERLEY STILES MD Apr 07, 2019 19:00
[2019-04-07] MEDS ORDERED: IRON SUCROSE 100MG 5ML VIAL (J1756 PER 1MG) IV SCH (20:00)
[2019-04-07] MEDS ORDERED: IRON SUCROSE 100 MG in NS 100 ML OVER 1 HR IV ONE (20:00)
--- NOTE | 2019-04-07 20:49 | ECGEPIP ---
[facility] - ED Test Date: 2019-04-06 Pat Name: GENI HOWARD Department: Room: - Gender: Female Framing Manager: adela : [id number] Requested By: KIERAN Thompson Order Number: [id number] Reading MD: Cierra Jeronimo Measurements Intervals [place] Rate: 68 P: 99 MD: 174 QRS: 55 QRSD: 98 T: 60 QT: 292 QTc: 311 Interpretive Statements SINUS RHYTHM LEFT VENTRICULAR HYPERTROPHY AND ST-T CHANGE SIMILAR 08/09/16 Electronically Signed on 04-07-2019 20:49:44 EST by Cierra Jeronimo
[2019-04-07] MEDS: NS 1,000 ML IV SCH (22:13)
[2019-04-07] MEDS: ESCITALOPRAM OXALATE 10 MG TAB (LEXAPRO) PO SCH (22:14)
[2019-04-07] MEDS: SIMVASTATIN 40 MG TAB PO SCH (22:14)
[2019-04-07] MEDS: LATANOPROST 0.005% OPHTH SOLN 2.5 ML OU SCH (22:16)
[2019-04-07] MEDS: LEVEMIR (INSULIN DETEMIR) 1 UNITS/0.01ML SC SCH (22:16)
[2019-04-08 03:53] VITALS: BP 120/57
[2019-04-08] MEDS: LEVOTHYROXINE 100MCG TABLET (0.1MG) PO SCH (05:57)
[2019-04-08 06:00] VITALS: BP 131/70
[2019-04-08 06:15] LABS: HEMATOCRIT 26.5 % (36.0-47.0); HEMOGLOBIN 8.4 g/dl (12.0-15.5); MEAN CORPUSCULAR HGB CONC 31.7 g/dl (32.0-36.5); MEAN CORPUSCULAR VOLUME 75.7 fl (80.0-96.0); PLATELET COUNT, AUTOMATED 269 10^3/uL (150-450); WHITE BLOOD COUNT 7.2 10^3/uL (4.0-10.0)
[2019-04-08 06:42] LABS: CREATININE FOR GFR 1.2 MG/DL (0.55-1.30); GLOMERULAR FILTRATION RATE 45.7 (>32); MAGNESIUM LEVEL 2.1 MG/DL (1.8-2.4); PHOSPHORUS LEVEL 2.4 MG/DL (2.5-4.9); POTASSIUM SERUM 4.1 MEQ/L (3.5-5.1)
[2019-04-08] MEDS: HumaLOG INSULIN (NovoLOG) PER UNIT SC SCH ×4 (08:06→22:50)
[2019-04-08] MEDS: NS 1,000 ML IV SCH ×2 (08:06→14:50)
[2019-04-08] MEDS: hydroCHLOROthiazide 12.5 MG CAPSULE PO SCH (08:07)
[2019-04-08] MEDS: MICONAZOLE TOPICAL 2% CREAM 15GM TOP SCH ×3 (08:07→22:51)
[2019-04-08] MEDS: lisinopriL 10 MG TAB PO SCH (08:07)
[2019-04-08] MEDS: HEPARIN SOD (PORCINE) 5000 UNITS/ML VIAL (J1644 PER 1000UNITS) SC SCH ×2 (08:07→22:49)
[2019-04-08] MEDS: IRON SUCROSE 100 MG in NS 100 ML OVER 1 HR IV SCH (09:22)
[2019-04-08] MEDS: K-PHOS NEUTRAL 250MG TABLET (SOD.PHOSPHATE/POT.PHOSPHATE) PO SCH ×3 (09:22→22:50)
[2019-04-08] MEDS ORDERED: CALCIUM CARBONATE 500 MG CHEW U/D PO PRN (09:45)
[2019-04-08 14:00] VITALS: BP 147/76
--- NOTE | 2019-04-08 16:14 | IPNPDOC ---
Date Seen The patient was seen on 04/08/19. Progress Note SUBJECTIVE: 84-year-old female with past medical history of diabetes mellitus, hypertension, chronic kidney disease and hypothyroidism presents from home with fatigue and medication noncompliance. Patient lives alone, has been noncompliant with medications for at least a few weeks, reports significant fatigue, polydipsia and polyuria, dizziness and recurrent falls. Patient has not taken her insulin in a long time. Patient reports that she no longer has the willpower to live and wishes to go to [facility]. Patient's brother is at bedside who brought her to the hospital today. Patient says that she is fine and wants to go home despite having severely abnormal lab findings. Patient found to have blood glucose greater than 1000, hyperosmolarity, elevated lipase and CT findings consistent with pancreatitis. Patient denies any shortness of breath, chest pain, nausea, vomiting, abdominal pain or diarrhea. 04/07/19 Patient seen in the morning, insulin drip was discontinued. Overnight, received Lantus 10 units and has been started on sliding scale coverage, tolerated breakfast in the morning without any difficulty, no complaints at this time, wishes to go home. She denies any shortness of breath, chest pain, nausea, vomiting, abdominal pain or diarrhea. 04/08/19 Patient seen in the morning, comfortable in bed, reports worsening depression due to declining health and lack of motivation to live with fleeting thoughts of suicide over the past few weeks. Currently tolerating diet, without additional complaints. 10 point review of system is negative except for above PHYSICAL EXAMINATION: VITAL SIGNS: Please see below. GENERAL: No distress HEENT: Normocephalic, atraumatic, moist mucous membranes NECK: Supple CARDIOVASCULAR EXAMINATION: S1, S2, no murmurs RESPIRATORY EXAMINATION: Clear to auscultation, no wheezing ABDOMINAL EXAMINATION: Soft, nontender, nondistended, positive bowel sounds EXTREMITIES: Range of motion intact SKIN: No rash NEUROLOGICAL EXAMINATION: Alert and oriented 3, right-sided dyskinesia appreciated PSYCHIATRIC EXAMINATION: Calm and cooperative LABORATORY DATA: See below. MICROBIOLOGY: Please see below. ASSESSMENT: 84-year-old female with past medical history of chronic kidney disease, diabetes mellitus, hypertension, hypothyroidism, being admitted for diabetic ketoacidosis and acute pancreatitis. PLAN: 1. Diabetic ketoacidosis Resolved, Lantus 60 units at bedtime, sliding scale insulin coverage with meals and at bedtime, continue gentle IV hydration. Hemoglobin A1c greater than 16 2. Acute pancreatitis Continue IV hydration, lipase trending down. 3. Depression with suicidal ideation Patient with worsening depression and suicidal ideation over the past few weeks which caused her to become noncompliant and resulted in the diabetic ketoacidosis, psychiatry consulted. 4. Hypertension. Continue lisinopril and hydrochlorothiazide 5. Acute on chronic kidney disease Resolved with IV hydration, will monitor. 6. Hypothyroidism. Continue levothyroxine 7. Dyskinesia. Patient with right sided chorea-like movements, reports new over the past week, MRI brain without acute pathology, possible metabolic and endocrine- related chorea, will monitor for now. 8. Iron deficiency anemia. Low iron reserves, Venofer 100 mg daily for now, oral supplementation after discharge. DVT prophylaxis: Heparin subcutaneous GI prophylaxis: Not needed VS, I&O, 24H, Fishbone Vital Signs/I&O Vital Signs Date Time Temp Pulse Resp B/P (MAP) Pulse Ox O2 Delivery O2 Flow Rate FiO2 04/08/19 14:00 97.8 87 19 147/76 (99) 98 Room Air I&O- Last 24 Hours up to 6 AM 04/08/19 06:00 Intake Total 1970 ml Balance 1970 ml Laboratory Data 24H LABS Laboratory Tests 2 04/07/19 16:35: Bedside Glucose (Misc Panel) 326H 04/07/19 21:58: Bedside Glucose (Misc Panel) 272H 04/08/19 05:26: Nucleated Red Blood Cells % (auto) 0.0, Anion Gap 6L, Glomerular Filtration Rate 45.7, Calcium Level 8.0L, Phosphorus Level 2.4L, Magnesium Level 2.1, Lipase 2846H 04/08/19 11:22: Bedside Glucose (Misc Panel) 129H CBC/BMP Laboratory Tests 04/08/19 05:26 Microbiology Microbiology 04/06/19 Blood Culture - Preliminary, Resulted No growth after 24 hours . All specim... KIMBERLEY STILES MD Apr 08, 2019 16:14
[2019-04-08 22:00] VITALS: BP 125/60
[2019-04-08] MEDS: LEVEMIR (INSULIN DETEMIR) 1 UNITS/0.01ML SC SCH (22:49)
[2019-04-08] MEDS: ESCITALOPRAM OXALATE 10 MG TAB (LEXAPRO) PO SCH (22:50)
[2019-04-08] MEDS: LATANOPROST 0.005% OPHTH SOLN 2.5 ML OU SCH (22:50)
[2019-04-08] MEDS: SIMVASTATIN 40 MG TAB PO SCH (22:50)
[2019-04-09] MEDS: NS 1,000 ML IV SCH (01:02)
[2019-04-09 05:47] LABS: HEMATOCRIT 27.6 % (36.0-47.0); HEMOGLOBIN 8.7 g/dl (12.0-15.5); MEAN CORPUSCULAR HEMOGLOBIN 24.2 pg (27.0-33.0); MEAN CORPUSCULAR HGB CONC 31.5 g/dl (32.0-36.5); MEAN CORPUSCULAR VOLUME 76.9 fl (80.0-96.0); PLATELET COUNT, AUTOMATED 241 10^3/uL (150-450); RED BLOOD COUNT 3.59 10^6/uL (4.00-5.40); WHITE BLOOD COUNT 7.5 10^3/uL (4.0-10.0)
[2019-04-09 06:00] VITALS: BP 113/62
[2019-04-09] MEDS: LEVOTHYROXINE 100MCG TABLET (0.1MG) PO SCH (06:24)
[2019-04-09 06:36] LABS: ALBUMIN 2.7 GM/DL (3.2-5.2); BILIRUBIN,TOTAL 0.5 MG/DL (0.2-1.0); CALCIUM LEVEL 8.6 MG/DL (8.8-10.2); CREATININE FOR GFR 0.98 MG/DL (0.55-1.30); GLOMERULAR FILTRATION RATE 57.7 (>32); POTASSIUM SERUM 3.6 MEQ/L (3.5-5.1); TOTAL PROTEIN 6.2 GM/DL (6.4-8.2)
[2019-04-09] MEDS: HumaLOG INSULIN (NovoLOG) PER UNIT SC SCH ×4 (07:30→21:00)
[2019-04-09] MEDS ORDERED: POTASSIUM CHLORIDE 10 MEQ SR TABLET PO ONE (09:00)
[2019-04-09] MEDS: IRON SUCROSE 100 MG in NS 100 ML OVER 1 HR IV SCH (09:01)
[2019-04-09] MEDS: lisinopriL 10 MG TAB PO SCH (09:01)
[2019-04-09] MEDS: MICONAZOLE TOPICAL 2% CREAM 15GM TOP SCH ×3 (09:01→20:24)
[2019-04-09] MEDS: hydroCHLOROthiazide 12.5 MG CAPSULE PO SCH (09:01)
[2019-04-09] MEDS: HEPARIN SOD (PORCINE) 5000 UNITS/ML VIAL (J1644 PER 1000UNITS) SC SCH ×2 (09:01→20:23)
[2019-04-09 14:00] VITALS: BP 114/64
[2019-04-09] MEDS: SIMVASTATIN 40 MG TAB PO SCH (20:24)
[2019-04-09] MEDS: LATANOPROST 0.005% OPHTH SOLN 2.5 ML OU SCH (20:24)
[2019-04-09] MEDS: ESCITALOPRAM OXALATE 10 MG TAB (LEXAPRO) PO SCH (20:24)
--- NOTE | 2019-04-09 20:41 | IPNPDOC ---
Date Seen The patient was seen on 04/09/19. Progress Note SUBJECTIVE: 84-year-old female with past medical history of diabetes mellitus, hypertension, chronic kidney disease and hypothyroidism presents from home with fatigue and medication noncompliance. Patient lives alone, has been noncompliant with medications for at least a few weeks, reports significant fatigue, polydipsia and polyuria, dizziness and recurrent falls. Patient has not taken her insulin in a long time. Patient reports that she no longer has the willpower to live and wishes to go to [facility]. Patient's brother is at bedside who brought her to the hospital today. Patient says that she is fine and wants to go home despite having severely abnormal lab findings. Patient found to have blood glucose greater than 1000, hyperosmolarity, elevated lipase and CT findings consistent with pancreatitis. Patient denies any shortness of breath, chest pain, nausea, vomiting, abdominal pain or diarrhea. 04/07/19 Patient seen in the morning, insulin drip was discontinued. Overnight, received Lantus 10 units and has been started on sliding scale coverage, tolerated breakfast in the morning without any difficulty, no complaints at this time, wishes to go home. She denies any shortness of breath, chest pain, nausea, vomiting, abdominal pain or diarrhea. 04/08/19 Patient seen in the morning, comfortable in bed, reports worsening depression due to declining health and lack of motivation to live with fleeting thoughts of suicide over the past few weeks. Currently tolerating diet, without additional complaints. 04/09/19 Patient seen in the morning, comfortable, no acute events overnight, awaiting Psych eval, no complaints at this time. 10 point review of system is negative except for above PHYSICAL EXAMINATION: VITAL SIGNS: Please see below. GENERAL: No distress HEENT: Normocephalic, atraumatic, moist mucous membranes NECK: Supple CARDIOVASCULAR EXAMINATION: S1, S2, no murmurs RESPIRATORY EXAMINATION: Clear to auscultation, no wheezing ABDOMINAL EXAMINATION: Soft, nontender, nondistended, positive bowel sounds EXTREMITIES: Range of motion intact SKIN: No rash NEUROLOGICAL EXAMINATION: Alert and oriented 3, right-sided dyskinesia appreciated PSYCHIATRIC EXAMINATION: Calm and cooperative LABORATORY DATA: See below. MICROBIOLOGY: Please see below. ASSESSMENT: 84-year-old female with past medical history of chronic kidney disease, diabetes mellitus, hypertension, hypothyroidism, being admitted for diabetic ketoacidosis and acute pancreatitis. PLAN: 1. Diabetic ketoacidosis Resolved, Lantus 60 units at bedtime, sliding scale insulin coverage with meals and at bedtime, hemoglobin A1c greater than 16 2. Acute pancreatitis Lipase trending down, discontinue IV fluids. 3. Depression with suicidal ideation Patient with worsening depression and suicidal ideation over the past few weeks which caused her to become noncompliant and resulted in the diabetic k etoacidosis, psychiatry eval pending. 4. Hypertension. Continue lisinopril and hydrochlorothiazide 5. Acute on chronic kidney disease Resolved with IV hydration, will monitor. 6. Hypothyroidism. Continue levothyroxine 7. Dyskinesia. Patient with right sided chorea-like movements, reports new over the past week, MRI brain without acute pathology, possible metabolic and endocrine-related chorea, Vitamin B12 marginal, will provide supplementation, will monitor for now. 8. Iron deficiency anemia. Low iron reserves, Venofer 100 mg daily, oral supplementation after discharge. DVT prophylaxis: Heparin subcutaneous GI prophylaxis: Not needed VS, I&O, 24H, Fishbone Vital Signs/I&O Vital Signs Date Time Temp Pulse Resp B/P (MAP) Pulse Ox O2 Delivery O2 Flow Rate FiO2 04/09/19 14:00 98.7 96 19 114/64 (81) 94 Room Air I&O- Last 24 Hours up to 6 AM 04/09/19 05:59 Intake Total 2397 ml Output Total 0 ml Balance 2397 ml Laboratory Data 24H LABS Laboratory Tests 2 04/09/19 05:31: Nucleated Red Blood Cells % (auto) 0.0, Anion Gap 5L, Glomerular Filtration Rate 57.7, Calcium Level 8.6L, Phosphorus Level 4.0#, Magnesium Level 2.0, Total Bilirubin 0.5#, Aspartate Amino Transf (AST/SGOT) 17, Alanine Aminotransferase (ALT/SGPT) 12, Alkaline Phosphatase 58, Total Protein 6.2L, Albumin 2.7L, Albumin/Globulin Ratio 0.77L, Vitamin B12 Level 357 04/09/19 11:58: Bedside Glucose (Misc Panel) 196H 04/09/19 16:54: Bedside Glucose (Misc Panel) 190H CBC/BMP Laboratory Tests 04/09/19 05:31 Microbiology Microbiology 04/06/19 Blood Culture - Preliminary, Resulted No Growth after 72 hours. All specime... GONDAL,EILEENIB N. MD Apr 09, 2019 20:41
[2019-04-09 22:00] VITALS: BP 132/65
[2019-04-09] MEDS: LEVEMIR (INSULIN DETEMIR) 1 UNITS/0.01ML SC SCH (22:06)
[2019-04-10] MEDS: ACETAMINOPHEN 500 MG TAB PO PRN (01:21)
[2019-04-10] MEDS: LEVOTHYROXINE 100MCG TABLET (0.1MG) PO SCH (05:50)
[2019-04-10 06:00] VITALS: BP 116/76
[2019-04-10 06:43] LABS: HEMATOCRIT 27.6 % (36.0-47.0); HEMOGLOBIN 8.5 g/dl (12.0-15.5); MEAN CORPUSCULAR HEMOGLOBIN 24.4 pg (27.0-33.0); MEAN CORPUSCULAR HGB CONC 30.8 g/dl (32.0-36.5); MEAN CORPUSCULAR VOLUME 79.3 fl (80.0-96.0); PLATELET COUNT, AUTOMATED 258 10^3/uL (150-450); RED BLOOD COUNT 3.48 10^6/uL (4.00-5.40); WHITE BLOOD COUNT 9.7 10^3/uL (4.0-10.0)
[2019-04-10 06:50] LABS: CALCIUM LEVEL 8.1 MG/DL (8.8-10.2); CREATININE FOR GFR 1.01 MG/DL (0.55-1.30); GLOMERULAR FILTRATION RATE 55.7 (>32); POTASSIUM SERUM 4.2 MEQ/L (3.5-5.1)
[2019-04-10] MEDS: HumaLOG INSULIN (NovoLOG) PER UNIT SC SCH ×4 (07:30→21:00)
[2019-04-10] MEDS: CYANOCOBALAMIN 1,000 MCG/ML VIAL (J3420) IM SCH (10:22)
[2019-04-10] MEDS: lisinopriL 10 MG TAB PO SCH (10:22)
[2019-04-10] MEDS: HEPARIN SOD (PORCINE) 5000 UNITS/ML VIAL (J1644 PER 1000UNITS) SC SCH ×2 (10:22→21:37)
[2019-04-10] MEDS: MICONAZOLE TOPICAL 2% CREAM 15GM TOP SCH ×3 (10:23→21:38)
[2019-04-10] MEDS: hydroCHLOROthiazide 12.5 MG CAPSULE PO SCH (10:23)
[2019-04-10] MEDS: IRON SUCROSE 100 MG in NS 100 ML OVER 1 HR IV SCH (10:23)
[2019-04-10 14:00] VITALS: BP 118/74
--- NOTE | 2019-04-10 16:02 | MHCR ---
DATE OF CONSULTATION: 04/08/2019 HISTORY OF PRESENT ILLNESS: I was asked to see this 84-year-old woman who was admitted with a history of multiple medical problems, including diabetes, hypertension, chronic kidney disease, hypothyroidism. She was admitted with complaints of fatigue and medication noncompliance. She lives alone and she has stopped taking her medications for at least a few weeks. She was found to be in diabetic ketoacidosis. The patient also stated that she no longer has the willpower to live and she wishes to go to [facility]. The brother feels that the patient should not continue to live alone anymore and feels that the patient needs placement. The question is if the fact that she stopped the medication was done with suicidal intent. When I saw the patient, she tells me, "I just stopped taking all my medications, I stopped eating, I was not hungry." She admits that she was feeling very depressed. She says that she had a brother that in August and that had been difficult for her. She says that she was very depressed. She was wanting to sleep all the time. She became somewhat tearful as she was talking about this. She states, "I feel like I have nothing to live for." Of note, the patient was noted to be constantly moving her right extremity. She says that this is something that has started recently and they apparently are trying to figure out and do a workup to find out what this is from. She did have a MRI done of her head. I asked her if she could make herself stop moving the arm and she was able to do it if she thought about it. The patient is definitely depressed and she does feel hopeless and helpless, feels like she has nothing to live for, but she denies any active suicidal thoughts. The patient states that her brother is taking care of everything for her at this point and that the brother feels that she needs placement somewhere. She feels that maybe she wants to go home, but then she recognizes that she is too weak to do that and will need to go somewhere at least for rehabilitation. The patient states that she does have a history of being treated with Lexapro 10 mg once a day by her primary care provider. PAST PSYCHIATRIC HISTORY: She has never been in a psychiatric unit. She has never made any actual suicidal attempt. FAMILY HISTORY: She denies any psychiatric illnesses in her family. The patient denies any suicides in her family. MEDICAL HISTORY: This is as noted above. ABUSE HISTORY: She denies any history of any physical or sexual abuse. SUBSTANCE ABUSE HISTORY: She denies any problems with alcohol or drugs. MENTAL STATUS EXAMINATION: This patient is alert and oriented to the date. She was aware that she was at [facility]. She was not sure what floor in the hospital she was on. She was aware of the city and county and state. She was aware that [place] is the President. She was able to spell "world" forward and backwards for me. She could recall three out of three words immediately, but only recalled one out of three words in 5 minutes. She could name parts of objects. She had difficulties repeating, "no ifs, ands or buts." I did not do the three stage command because of the fact that she was having so much struggle with the chorea movement in her right upper extremity and obviously I could not do the writing or the copying test. We are a bit limited as to not being able to do the full mental status examination. Therefore, I could not fully do the mental status examination, but overall she did fairly well in all the questions that I asked her except that she only recalled one out of three words in 5 minutes. Her long-term memory seemed to be pretty good. She could tell me her age, she could tell me her address. She is alert and oriented times three. She is pleasant. She was verbally spontaneous. She did definitely appear to be fairly weak and at first she appeared to be a bit confused but the more that we talked she was able to tell me about her family, her siblings, her 's in the 90s. She was definitely aware of the fact that she has the one brother who has been coming to see her and feels that she needs to go into an acute rehabilitation program at least or needs placement as she is not able to care for herself on her own anymore. She is not sure if this is what she wants to do definitely, but she seems to recognize that she needs at least temporary placement for rehabilitation. There was no formal thought disorder noted. She said her mood was depressed. Her affect was full range and appropriate to her mood. She is not psychotic. She is not suicidal or homicidal. Concentration is fair. Memory, as I said, is good for long-term and immediate and fair for recent. Insight and judgment I feel is fairly good. DIAGNOSES: 1. Major depressive disorder, recurrent, severe without psychotic symptoms. TREATMENT PLAN: My recommendation is that the Lexapro is increased to 10 mg. Since she has not taken it for a while, it will take some time for the medication to become effective and it may need to be adjusted. As far as her ability to make decisions, such as for placement, I do feel that she is able to make such a decision. She is recognizing at this point that she at least needs at least temporary placement for rehabilitation. Please reconsult if further problems occur.
--- NOTE | 2019-04-10 21:27 | IPNPDOC ---
Date Seen The patient was seen on 04/10/19. Progress Note SUBJECTIVE: 84-year-old female with past medical history of diabetes mellitus, hypertension, chronic kidney disease and hypothyroidism presents from home with fatigue and medication noncompliance. Patient lives alone, has been noncompliant with medications for at least a few weeks, reports significant fatigue, polydipsia and polyuria, dizziness and recurrent falls. Patient has not taken her insulin in a long time. Patient reports that she no longer has the willpower to live and wishes to go to [facility]. Patient's brother is at bedside who brought her to the hospital today. Patient says that she is fine and wants to go home despite having severely abnormal lab findings. Patient found to have blood glucose greater than 1000, hyperosmolarity, elevated lipase and CT findings consistent with pancreatitis. Patient denies any shortness of breath, chest pain, nausea, vomiting, abdominal pain or diarrhea. 04/07/19 Patient seen in the morning, insulin drip was discontinued. Overnight, received Lantus 10 units and has been started on sliding scale coverage, tolerated breakfast in the morning without any difficulty, no complaints at this time, wishes to go home. She denies any shortness of breath, chest pain, nausea, vomiting, abdominal pain or diarrhea. 04/08/19 Patient seen in the morning, comfortable in bed, reports worsening depression due to declining health and lack of motivation to live with fleeting thoughts of suicide over the past few weeks. Currently tolerating diet, without additional complaints. 04/09/19 Patient seen in the morning, comfortable, no acute events overnight, awaiting Psych eval, no complaints at this time. 04/10/19 Resting comfortably in bed, no acute events overnight, no complaints at this time, awaiting placement. 10 point review of system is negative except for above PHYSICAL EXAMINATION: VITAL SIGNS: Please see below. GENERAL: No distress HEENT: Normocephalic, atraumatic, moist mucous membranes NECK: Supple CARDIOVASCULAR EXAMINATION: S1, S2, no murmurs RESPIRATORY EXAMINATION: Clear to auscultation, no wheezing ABDOMINAL EXAMINATION: Soft, nontender, nondistended, positive bowel sounds EXTREMITIES: Range of motion intact SKIN: No rash NEUROLOGICAL EXAMINATION: Alert and oriented 3, right-sided dyskinesia appreciated PSYCHIATRIC EXAMINATION: Calm and cooperative LABORATORY DATA: See below. MICROBIOLOGY: Please see below. ASSESSMENT: 84-year-old female with past medical history of chronic kidney disease, diabetes mellitus, hypertension, hypothyroidism, being admitted for diabetic ketoacidosis and acute pancreatitis. PLAN: 1. Diabetic ketoacidosis Resolved, Lantus 60 units at bedtime, sliding scale insulin coverage with m eals and at bedtime, hemoglobin A1c greater than 16 2. Acute pancreatitis resolved, tolerating diet, fluids discontinued. 3. Depression with suicidal ideation Patient with worsening depression and suicidal ideation over the past few weeks which caused her to become noncompliant and resulted in the diabetic ketoacidosis, psychiatry eval pending. 4. Hypertension. Continue lisinopril and hydrochlorothiazide 5. Acute on chronic kidney disease Resolved with IV hydration, will monitor. 6. Hypothyroidism. Continue levothyroxine 7. Dyskinesia. Patient with right sided chorea-like movements, reports new over the past 1-2 weeks, MRI brain without acute pathology, possible metabolic and endocrine- related chorea, ?psychiatric etiology as chorea fades with active movement & when patient is sleeping, Vitamin B12 marginal, will provide supplementation. 8. Iron deficiency anemia. Low iron reserves, Venofer 100 mg daily, oral supplementation after discharge. DVT prophylaxis: Heparin subcutaneous GI prophylaxis: Not needed VS, I&O, 24H, Fishbone Vital Signs/I&O Vital Signs Date Time Temp Pulse Resp B/P (MAP) Pulse Ox O2 Delivery O2 Flow Rate FiO2 04/10/19 14:00 98.6 78 20 118/74 (89) 95 Room Air I&O- Last 24 Hours up to 6 AM 04/10/19 06:00 Intake Total 740 ml Output Total 0 ml Balance 740 ml Laboratory Data 24H LABS Laboratory Tests 2 04/10/19 06:13: Nucleated Red Blood Cells % (auto) 0.0, Anion Gap 6L, Glomerular Filtration Rate 55.7, Calcium Level 8.1L 04/10/19 11:39: Bedside Glucose (Misc Panel) 117H 04/10/19 16:45: Bedside Glucose (Misc Panel) 110 CBC/BMP Laboratory Tests 04/10/19 06:13 Microbiology Microbiology 04/06/19 Blood Culture - Preliminary, Resulted No Growth after 72 hours. All specime... KIMBERLEY STILES MD Apr 10, 2019 21:27
[2019-04-10] MEDS: ESCITALOPRAM OXALATE 10 MG TAB (LEXAPRO) PO SCH (21:36)
[2019-04-10] MEDS: SIMVASTATIN 40 MG TAB PO SCH (21:36)
[2019-04-10] MEDS: LEVEMIR (INSULIN DETEMIR) 1 UNITS/0.01ML SC SCH (21:37)
[2019-04-10] MEDS: LATANOPROST 0.005% OPHTH SOLN 2.5 ML OU SCH (21:38)
[2019-04-10 22:00] VITALS: BP 151/69
[2019-04-11] MEDS: ACETAMINOPHEN 500 MG TAB PO PRN (00:57)
[2019-04-11] MEDS: LEVOTHYROXINE 100MCG TABLET (0.1MG) PO SCH (05:36)
[2019-04-11 06:00] VITALS: BP 134/63
[2019-04-11 06:17] LABS: HEMATOCRIT 26.6 % (36.0-47.0); HEMOGLOBIN 8.1 g/dl (12.0-15.5); MEAN CORPUSCULAR HEMOGLOBIN 24.3 pg (27.0-33.0); MEAN CORPUSCULAR HGB CONC 30.5 g/dl (32.0-36.5); MEAN CORPUSCULAR VOLUME 79.9 fl (80.0-96.0); PLATELET COUNT, AUTOMATED 261 10^3/uL (150-450); RED BLOOD COUNT 3.33 10^6/uL (4.00-5.40); WHITE BLOOD COUNT 7.3 10^3/uL (4.0-10.0)
[2019-04-11 06:44] LABS: BLOOD UREA NITROGEN 19 MG/DL (7-18); CALCIUM LEVEL 8.5 MG/DL (8.8-10.2); CARBON DIOXIDE LEVEL 26 MEQ/L (21-32); CHLORIDE LEVEL 110 MEQ/L (98-107); CREATININE FOR GFR 0.94 MG/DL (0.55-1.30); GLOMERULAR FILTRATION RATE > 60.0 (>32); GLUCOSE, FASTING 60 MG/DL (70-100); MAGNESIUM LEVEL 2.1 MG/DL (1.8-2.4); PHOSPHORUS LEVEL 2.7 MG/DL (2.5-4.9); POTASSIUM SERUM 3.2 MEQ/L (3.5-5.1); SODIUM LEVEL 141 MEQ/L (136-145)
[2019-04-11] MEDS: HumaLOG INSULIN (NovoLOG) PER UNIT SC SCH ×2 (07:30→12:00)
[2019-04-11 09:57] VITALS: BP 132/68
[2019-04-11] MEDS: POTASSIUM CHLORIDE 10 MEQ SR TABLET PO SCH ×2 (09:57→13:00)
[2019-04-11] MEDS: hydroCHLOROthiazide 12.5 MG CAPSULE PO SCH (09:57)
[2019-04-11] MEDS: lisinopriL 10 MG TAB PO SCH (09:57)
[2019-04-11] MEDS: HEPARIN SOD (PORCINE) 5000 UNITS/ML VIAL (J1644 PER 1000UNITS) SC SCH (09:58)
[2019-04-11] MEDS: IRON SUCROSE 100 MG in NS 100 ML OVER 1 HR IV SCH (09:58)
[2019-04-11] MEDS: CYANOCOBALAMIN 1,000 MCG/ML VIAL (J3420) IM SCH (09:58)
[2019-04-11] MEDS: MICONAZOLE TOPICAL 2% CREAM 15GM TOP SCH (09:58)
[2019-04-11] MEDS ORDERED: K-PHOS NEUTRAL 250MG TABLET (SOD.PHOSPHATE/POT.PHOSPHATE) PO ONE (10:00)
[2019-04-11] MEDS ORDERED: TRES1INJ SQ (10:09)
--- NOTE | 2019-04-11 16:35 | DS.PDOC ---
Discharge Summary General Date of Admission Apr 06, 2019 at 17:39 Date of Discharge 04/11/19 Attending Physician: KIMBERLEY STILES MD Discharge Summary PROCEDURES PERFORMED DURING STAY: None. ADMITTING DIAGNOSES: 1. DKA. DISCHARGE DIAGNOSES: 1. DKA. COMPLICATIONS/CHIEF COMPLAINT: Htn Hypothyroidism Iron Deficiency Uncontrolled Di. HISTORY OF PRESENT ILLNESS: 84-year-old female with past medical history of diabetes mellitus, hypertension, hyperlipidemia, hypothyroidism, was admitted for DKA secondary to noncompliance. Patient reports depression over the past few weeks with lack of motivation, did not eat or take her medication for the past few days. Patient was brought in by her brother found to have significant DKA, treated with insulin drip, resolved and transferred out to the [facility] floor. Patient was evaluated by psychiatry, evaluated by physical therapy and will be discharged to [facility] due to lack of motivation and inability to care for self. Patient is clinically and hemodynamically stable for discharge at this time. HOSPITAL COURSE: As above. DISCHARGE MEDICATIONS: Please see below. ALLERGIES: Please see below. PHYSICAL EXAMINATION: VITAL SIGNS: Please see below. GENERAL: No distress HEENT: Normocephalic, atraumatic, moist mucous membranes NECK: Supple CARDIOVASCULAR EXAMINATION: S1, S2, no murmurs RESPIRATORY EXAMINATION: Clear to auscultation, no wheezing ABDOMINAL EXAMINATION: Soft, nontender, nondistended, positive bowel sounds EXTREMITIES: Range of motion intact SKIN: No rash NEUROLOGICAL EXAMINATION: Alert and oriented 3, right-sided dyskinesia appreciated PSYCHIATRIC EXAMINATION: Calm and cooperative LABORATORY DATA: Please see below. IMAGING: MRI head negative for acute pathology PROGNOSIS: Fair ACTIVITY: As tolerated. DIET: Cardiac with consistent carbs DISCHARGE PLAN: Follow-up with PCP in 1-2 weeks DISPOSITION: [facility]. DISCHARGE INSTRUCTIONS: 1. As above. DISCHARGE CONDITION: Stable. TIME SPENT ON DISCHARGE: Greater than 31 minutes. Vital Signs/I&Os Vital Signs Date Time Temp Pulse Resp B/P (MAP) Pulse Ox O2 Delivery O2 Flow Rate FiO2 04/11/19 09:57 132/68 04/11/19 06:00 97.2 83 20 95 Room Air I&O- Last 24 Hours up to 6 AM 04/11/19 06:00 Intake Total 1225 ml Output Total 0 ml Balance 1225 ml Laboratory Data Labs 24H Laboratory Tests 2 04/10/19 16:45: Bedside Glucose (Misc Panel) 110 04/10/19 21:35: Bedside Glucose (Misc Panel) 243H 04/11/19 06:03: Nucleated Red Blood Cells % (auto) 0.0, Anion Gap 5L, Glomerular Filtration Rate > 60.0, Calcium Level 8.5L, Phosphorus Level 2.7#, Magnesium Level 2.1 04/11/19 08:27: Bedside Glucose (Misc Panel) 157H 04/11/19 11:41: Bedside Glucose (Misc Panel) 199H CBC/BMP Laboratory Tests 04/11/19 06:03 FSBS Laboratory Tests Test 04/10/19 16:45 04/10/19 21:35 04/11/19 08:27 04/11/19 11:41 Range/Units Bedside Glucose (Misc Panel) 110 243 157 199 83-110 MG/DL Microbiology Microbiology 04/06/19 Blood Culture - Final, Complete NO GROWTH AFTER 5 DAYS Discharge Medications Scheduled Escitalopram Oxalate (Lexapro) 10 Mg Tab, 20 MG PO QHS, (Reported) Insulin Degludec (Tresiba Flextouch U-200) 200 Unit/Ml Inj, 50 UNIT SQ QHS Latanoprost (Xalatan) 0.005% 2.5ML Drops, 1 DROP OU QHS, (Reported) Levothyroxine Sodium (Levothyroxine Sodium) 100 Mcg Tab, 100 MCG PO DAILY, (Reported) Lisinopril/Hydrochlorothiazide (Lisinopril-Hctz 10-12.5 mg Tab) 1 Tab Tab, 1 TAB PO QHS, (Reported) Metformin HCl (Metformin HCl ER) 500 Mg Tab, 1,000 MG PO BID, (Reported) Miconazole Nitrate (Miconazole Nitrate) 30 Gm Cream..g., 1 APLCT TOP TID, (Reported) Applies to perineal area for yeast infection Simvastatin (Simvastatin) 40 Mg Tab, 40 MG PO QHS, (Reported) Timolol Maleate (Timolol Maleate) 0.5% 5ML Drop.daily, 1 DROP OU DAILY, (Reported) Scheduled PRN Acetaminophen (Acetaminophen) 500 Mg Tablet, 1,000 MG PO BID PRN for PAIN, (Reported) Cyclosporine (Restasis) 0.05 % Emu, 1 DROP OU BID PRN for DRY EYES, (Reported) Allergies Coded Allergies: brimonidine (Verified Allergy, Unknown, 05/17/18) dorzolamide (Verified Allergy, Unknown, 05/17/18) KIMBRELEY STILES MD Apr 11, 2019 16:35
[2019-04-11] MEDS ORDERED: LEVEMIR (INSULIN DETEMIR) 1 UNITS/0.01ML SC SCH (21:00)
== END 2019-04-11 13:43 | DRG 637 ==
LOC: M ED 15:40 → EDBD 15:40 → M ED INP 17:39 → ENRESERV 22:10 → M ICU 23:32 → M MSPAV 04-08 03:44
PROVIDERS: ADMIT Internal Medicine; ATTEND Internal Medicine
DX: E11.10 Type 2 diabetes mellitus with ketoacidosis without coma (principal); K85.90 Acute pancreatitis without necrosis or infection, unspecified; R45.851 Suicidal ideations; F33.2 Major depressive disorder, recurrent severe without psychotic features; E11.22 Type 2 diabetes mellitus with diabetic chronic kidney disease; I12.9 Hypertensive chronic kidney disease with stage 1 through stage 4 chronic kidney disease, or unspecified chronic kidney disease; N18.9 Chronic kidney disease, unspecified; G24.9 Dystonia, unspecified; E03.9 Hypothyroidism, unspecified; D50.9 Iron deficiency anemia, unspecified; Z91.14 Patient's other noncompliance with medication regimen; Z79.4 Long term (current) use of insulin; Z79.899 Other long term (current) drug therapy; Z88.8 Allergy status to other drugs, medicaments and biological substances

== ENCOUNTER → 2019-04-12 | Outpatient (REF) ==
[~2019-04-12] MED LIST changes: +ACET-683 PO; +MICO2CRE45 TOP; +TIMO0.5S39 OU; +XALA0.007 OU
[2019-04-12 09:43] LABS: CALCIUM LEVEL 8.2 MG/DL (8.8-10.2); CREATININE FOR GFR 1.02 MG/DL (0.55-1.30); GLOMERULAR FILTRATION RATE 55.1 (>32); POTASSIUM SERUM 4.6 MEQ/L (3.5-5.1)
== END ==
LOC: SKLAB4 08:12
PROVIDERS: ATTEND Internal Medicine
DX: E87.6 Hypokalemia (principal)

== ENCOUNTER → 2019-04-18 | Outpatient (REF) ==
[2019-04-18 09:05] LABS: BLOOD UREA NITROGEN 16 MG/DL (7-18); CALCIUM LEVEL 8.7 MG/DL (8.8-10.2); CARBON DIOXIDE LEVEL 30 MEQ/L (21-32); CHLORIDE LEVEL 101 MEQ/L (98-107); CREATININE FOR GFR 0.92 MG/DL (0.55-1.30); GLOMERULAR FILTRATION RATE > 60.0 (>32); GLUCOSE, FASTING 281 MG/DL (70-100); POTASSIUM SERUM 3.9 MEQ/L (3.5-5.1); SODIUM LEVEL 136 MEQ/L (136-145)
== END ==
LOC: SKLAB4 09:07
PROVIDERS: ATTEND Internal Medicine
DX: E87.6 Hypokalemia (principal); E11.9 Type 2 diabetes mellitus without complications

== ENCOUNTER → 2019-04-22 | Outpatient (REF) ==
--- NOTE | 2019-04-22 13:32 | REP ---
Right shoulder series: Three views. History: Pain after a fall. Findings: There is diffuse osteopenia. The right glenohumeral and acromioclavicular joints are normally aligned. No fractures seen. Periarticular soft tissues are unremarkable. Impression: Diffuse osteopenia. No fracture noted. Electronically Signed by Ramesh Watts MD 04/22/2019 01:24 P
== END ==
LOC: SKLAB4 12:08
PROVIDERS: ATTEND Internal Medicine
DX: M25.511 Pain in right shoulder (principal); M85.80 Other specified disorders of bone density and structure, unspecified site; W19.XXXA Unspecified fall, initial encounter

== ENCOUNTER → 2019-04-22 | Outpatient (CLI) | payer MEDICAID, MEDICARE ==
--- NOTE | 2019-04-22 13:48 | REP ---
Right upper extremity duplex venous ultrasound: History: Right shoulder pain Findings: The right internal jugular, axillary, brachial, basilic, and cephalic veins are anechoic and compressible in the left upper extremity. Color flow imaging is homogeneous. Spectral Doppler interrogation is unremarkable. There is no evidence of right upper extremity venous thrombosis. Impression: Negative right upper extremity duplex venous ultrasound. No evidence of venous thrombosis. Electronically Signed by Ramesh Watts MD 04/22/2019 01:40 P
== END ==
LOC: M RAD 12:51
PROVIDERS: ATTEND Nurse Practitioner Family
DX: R79.89 Other specified abnormal findings of blood chemistry (principal); M79.601 Pain in right arm

== ENCOUNTER → 2019-04-25 | Outpatient (REF) ==
[2019-04-25 12:46] LABS: CREATININE FOR GFR 0.97 MG/DL (0.55-1.30); GLOMERULAR FILTRATION RATE 58.4 (>32); POTASSIUM SERUM 4.7 MEQ/L (3.5-5.1)
== END ==
LOC: SKLAB4 11:42
PROVIDERS: ATTEND Internal Medicine
DX: E11.9 Type 2 diabetes mellitus without complications (principal); I10 Essential (primary) hypertension

== ENCOUNTER → 2019-05-02 | Outpatient (REF) ==
[2019-05-02 09:15] LABS: BLOOD UREA NITROGEN 17 MG/DL (7-18); CALCIUM LEVEL 8.6 MG/DL (8.8-10.2); CARBON DIOXIDE LEVEL 29 MEQ/L (21-32); CHLORIDE LEVEL 104 MEQ/L (98-107); CREATININE FOR GFR 0.94 MG/DL (0.55-1.30); GLOMERULAR FILTRATION RATE > 60.0 (>32); GLUCOSE, FASTING 86 MG/DL (70-100); POTASSIUM SERUM 4.4 MEQ/L (3.5-5.1); SODIUM LEVEL 138 MEQ/L (136-145)
== END ==
LOC: SKLAB4 10:55
PROVIDERS: ATTEND Internal Medicine
DX: I10 Essential (primary) hypertension (principal); E11.9 Type 2 diabetes mellitus without complications

== ENCOUNTER → 2019-05-05 | Outpatient (REF) ==
[2019-05-05 16:55] LABS: HEMATOCRIT 26.5 % (36.0-47.0); HEMOGLOBIN 8.4 g/dl (12.0-15.5); MEAN CORPUSCULAR HEMOGLOBIN 26.2 pg (27.0-33.0); MEAN CORPUSCULAR HGB CONC 31.7 g/dl (32.0-36.5); MEAN CORPUSCULAR VOLUME 82.6 fl (80.0-96.0); PLATELET COUNT, AUTOMATED 222 10^3/uL (150-450); RED BLOOD COUNT 3.21 10^6/uL (4.00-5.40); WHITE BLOOD COUNT 5.2 10^3/uL (4.0-10.0)
[2019-05-05 17:21] LABS: ALBUMIN 2.6 GM/DL (3.2-5.2); BILIRUBIN,TOTAL 0.8 MG/DL (0.2-1.0); CALCIUM LEVEL 8.2 MG/DL (8.8-10.2); CREATININE FOR GFR 1.19 MG/DL (0.55-1.30); GLOMERULAR FILTRATION RATE 46.1 (>32); TOTAL PROTEIN 6.7 GM/DL (6.4-8.2)
== END ==
LOC: SKLAB4 13:20
PROVIDERS: ATTEND Internal Medicine
DX: R11.2 Nausea with vomiting, unspecified (principal)

== ENCOUNTER → 2019-05-06 | Outpatient (REF) | payer MEDICARE ==
[2019-05-06 20:25] LABS: AMYLASE 85 U/L (25-115); LIPASE 435 U/L (73-393)
[2019-05-07 07:39] LABS: ALBUMIN 2.6 GM/DL (3.2-5.2); ALT/SGPT 70 U/L (12-78); BILIRUBIN,TOTAL 0.8 MG/DL (0.2-1.0); BLOOD UREA NITROGEN 17 MG/DL (7-18); CALCIUM LEVEL 8.3 MG/DL (8.8-10.2); CARBON DIOXIDE LEVEL 29 MEQ/L (21-32); CHLORIDE LEVEL 97 MEQ/L (98-107); CREATININE FOR GFR 0.92 MG/DL (0.55-1.30); GLOMERULAR FILTRATION RATE > 60.0 (>32); GLUCOSE, FASTING 46 MG/DL (70-100); POTASSIUM SERUM 4.4 MEQ/L (3.5-5.1); SODIUM LEVEL 133 MEQ/L (136-145); TOTAL PROTEIN 6.6 GM/DL (6.4-8.2)
== END ==
LOC: SKLAB4 18:35
PROVIDERS: ATTEND Internal Medicine
DX: R94.5 Abnormal results of liver function studies (principal); R10.9 Unspecified abdominal pain

== ENCOUNTER → 2019-05-06 | Outpatient (CLI) | payer MEDICARE ==
[~2019-05-06] MED LIST changes: +GASTROGRAFIN SOLUTION 30ML (Q9963) As Ordered ONE; +ISOVUE-370 76% 100ML VIAL (Q9967) As Ordered ONE
--- NOTE | 2019-05-06 17:20 | REPVR ---
PROCEDURE INFORMATION: Exam: CT Abdomen And Pelvis With Contrast Exam date and time: 05/06/2019 4:48 PM Age: 84 years old Clinical indication: Abdominal pain; Generalized; Additional info: Abd discomfort TECHNIQUE: Imaging protocol: Computed tomography of the abdomen and pelvis with intravenous contrast. Radiation optimization: All CT scans at this facility use at least one of these dose optimization techniques: automated exposure control; mA and/or kV adjustment per patient size (includes targeted exams where dose is matched to clinical indication); or iterative reconstruction. Contrast material: ISOVUE 370; Contrast volume: 100 ml; Contrast route: IV; COMPARISON: CT ABD PELVIS W/O CONTRAST 04/06/2019 5:08 PM FINDINGS: Lungs: There is minimal basilar atelectasis. Pleural space: There are small bilateral pleural effusions. Liver: The liver is normal. Gallbladder and bile ducts: There is a small calcified gallstone in the gallbladder. It is within the region of the gallbladder neck, near the orifice of the cystic duct. There is thickening of the gallbladder wall. These findings were not present on the prior scan. Bile ducts are not dilated. Pancreas: The pancreas is normal. There are mild inflammatory changes adjacent to the tail of the pancreas. This is decreased from prior scan. Spleen: The spleen is normal. Adrenals: The adrenal glands are normal. Kidneys and ureters: The kidneys are normal. No hydronephrosis. Stomach and bowel: There are colonic diverticula. No associated wall thickening or inflammation. Appendix: No evidence of appendicitis. Intraperitoneal space: There is a small amount of free fluid in the pelvis. No fluid collection. No pseudocyst. No free air. Vasculature: Unremarkable. No abdominal aortic aneurysm. Lymph nodes: There are nonspecific mesenteric lymph nodes. Some are mildly enlarged measuring up to 11 mm in short axis. These were present on the prior scan. Bladder: The bladder is normal with no evidence of calculi. Reproductive: Unremarkable as visualized. Bones/joints: There are degenerative changes of the lumbar spine. No fracture. Soft tissues: There is a small fat containing left inguinal hernia. IMPRESSION: 1. Minimal peripancreatic inflammatory changes adjacent to the tail of the pancreas. This is decreased compared with prior scan, possible resolving or recurrent pancreatitis. 2. Small gallstone in the neck of the gallbladder not seen on prior scan. There is gallbladder wall thickening, not present on prior scan. Clinically correlate for possible acute cholecystitis. 3. Diverticulosis. No evidence of acute diverticulitis. 4. Small bilateral pleural effusions not present on prior scan. There is also a new trace of free fluid in the pelvis. Electronically signed by: Jose J Fernandez On 05/06/2019 17:20:02 PM
== END ==
LOC: M RAD 14:49
PROVIDERS: ATTEND Nurse Practitioner Family
DX: J98.11 Atelectasis (principal); J90 Pleural effusion, not elsewhere classified; K80.20 Calculus of gallbladder without cholecystitis without obstruction; K57.30 Diverticulosis of large intestine without perforation or abscess without bleeding; M51.36 Other intervertebral disc degeneration, lumbar region; K40.90 Unilateral inguinal hernia, without obstruction or gangrene, not specified as recurrent; R14.0 Abdominal distension (gaseous); R50.9 Fever, unspecified; R05 Cough
CPT/HCPCS: 74177; 81001; 87086; 87486; 87581; 87633; 87798; Q9963; Q9967

== ENCOUNTER → 2019-05-06 | Outpatient (REF) | payer MEDICARE ==
[~2019-05-06] MED LIST changes: -GASTROGRAFIN SOLUTION 30ML (Q9963) As Ordered ONE; -ISOVUE-370 76% 100ML VIAL (Q9967) As Ordered ONE
[2019-05-06 19:38] LABS: APPEARANCE, URINE HAZY (CLEAR); BACTERIA, URINE AUTO 1+ (NEGATIVE); BILIRUBIN, URINE AUTO NEGATIVE (NEGATIVE); BLOOD, URINE BLOOD NEGATIVE (NEGATIVE); COLOR, URINE YELLOW (YELLOW); GLUCOSE, URINE (UA) AUTO NEGATIVE (NEGATIVE); KETONE, URINE AUTO NEGATIVE (NEGATIVE); LEUKOCYTE ESTERASE, URINE AUTO 1+ (NEGATIVE); MUCUS, URINE SMALL (NEGATIVE); NITRITE, URINE AUTO NEGATIVE (NEGATIVE); PROTEIN, URINE AUTO NEGATIVE (NEGATIVE); RBC, URINE AUTO 2 /HPF (0-3); SPECIFIC GRAVITY URINE AUTO 1.011 (1.002-1.035); SQUAMOUS EPITHELIAL CELL UR AU 5 /HPF (0-6); UROBILINOGEN, URINE AUTO 0.2 mg/dL (0.0-2.0); WBC, URINE AUTO 7 /HPF (0-3)
== END ==
LOC: SKLAB4 12:03
PROVIDERS: ATTEND Internal Medicine
DX: R50.9 Fever, unspecified (principal); R05 Cough

== ENCOUNTER → 2019-05-08 | Outpatient (REF) | payer MEDICARE ==
[2019-05-08 07:09] LABS: ALBUMIN 2.4 GM/DL (3.2-5.2); BILIRUBIN,TOTAL 0.4 MG/DL (0.2-1.0); CALCIUM LEVEL 8.4 MG/DL (8.8-10.2); CREATININE FOR GFR 1.03 MG/DL (0.55-1.30); GLOMERULAR FILTRATION RATE 54.5 (>32); POTASSIUM SERUM 4.7 MEQ/L (3.5-5.1); TOTAL PROTEIN 6.8 GM/DL (6.4-8.2)
== END ==
LOC: SKLAB4 10:54
PROVIDERS: ATTEND Internal Medicine
DX: K85.90 Acute pancreatitis without necrosis or infection, unspecified (principal)

== ENCOUNTER → 2019-05-09 | Outpatient (REF) | payer MEDICARE | LOC: M RAD 15:47 | PROVIDERS: ATTEND Internal Medicine | DX: R14.0 Abdominal distension (gaseous) (principal); R50.9 Fever, unspecified ==

== ENCOUNTER → 2019-05-09 | Outpatient (REF) | payer MEDICARE ==
--- NOTE | 2019-05-09 16:36 | REP ---
KUB: Single view. History: Abdomen pain. Findings: Supine view of the abdomen demonstrates formed stool in the ascending and descending colon without colonic distension. No small bowel dilation is seen. Bowel gas pattern is considered normal. There is a levoconvex scoliotic curve of the lumbar spine. Psoas margins appear symmetric. Sacrum and SI joints are intact. Impression: There is formed stool in the left colon without colonic distension. Normal bowel gas pattern. Electronically Signed by Ramesh Watts MD 05/09/2019 04:27 P
[2019-05-09 17:16] LABS: BASO % 0.3 % (0.0-1.0); EOS # 0.1 10^3/uL (0.0-0.5); EOS % 1.5 % (0.0-3.0); HEMATOCRIT 24.9 % (36.0-47.0); HEMOGLOBIN 7.8 g/dl (12.0-15.5); LYMPH # 1.3 10^3/uL (1.5-5.0); LYMPH % 19.9 % (24.0-44.0); MEAN CORPUSCULAR HEMOGLOBIN 25.9 pg (27.0-33.0); MEAN CORPUSCULAR HGB CONC 31.3 g/dl (32.0-36.5); MEAN CORPUSCULAR VOLUME 82.7 fl (80.0-96.0); MONO # 0.5 10^3/uL (0.0-0.8); MONO % 7.8 % (0.0-5.0); NEUTROPHILS # 4.6 10^3/uL (1.5-8.5); NEUTROPHILS % 69.9 % (36.0-66.0); PLATELET COUNT, AUTOMATED 253 10^3/uL (150-450); RED BLOOD COUNT 3.01 10^6/uL (4.00-5.40); WHITE BLOOD COUNT 6.5 10^3/uL (4.0-10.0)
[2019-05-09 17:37] LABS: ALBUMIN 2.6 GM/DL (3.2-5.2); ALT/SGPT 45 U/L (12-78); BILIRUBIN,TOTAL 0.4 MG/DL (0.2-1.0); BLOOD UREA NITROGEN 16 MG/DL (7-18); CALCIUM LEVEL 8.3 MG/DL (8.8-10.2); CARBON DIOXIDE LEVEL 26 MEQ/L (21-32); CHLORIDE LEVEL 98 MEQ/L (98-107); CREATININE FOR GFR 0.92 MG/DL (0.55-1.30); GLOMERULAR FILTRATION RATE > 60.0 (>32); GLUCOSE, FASTING 214 MG/DL (70-100); POTASSIUM SERUM 4.8 MEQ/L (3.5-5.1); SODIUM LEVEL 131 MEQ/L (136-145); TOTAL PROTEIN 6.8 GM/DL (6.4-8.2)
== END ==
LOC: SKLAB4 15:07
PROVIDERS: ATTEND Internal Medicine
DX: R14.0 Abdominal distension (gaseous) (principal); R50.9 Fever, unspecified; K59.00 Constipation, unspecified

== ENCOUNTER → 2019-05-13 | Outpatient (REF) | payer MEDICARE ==
[2019-05-13 06:56] LABS: HEMATOCRIT 23.2 % (36.0-47.0); HEMOGLOBIN 7.3 g/dl (12.0-15.5); MEAN CORPUSCULAR HEMOGLOBIN 26.4 pg (27.0-33.0); MEAN CORPUSCULAR HGB CONC 31.5 g/dl (32.0-36.5); MEAN CORPUSCULAR VOLUME 84.1 fl (80.0-96.0); PLATELET COUNT, AUTOMATED 292 10^3/uL (150-450); RED BLOOD COUNT 2.76 10^6/uL (4.00-5.40); WHITE BLOOD COUNT 5.3 10^3/uL (4.0-10.0)
[2019-05-13 07:16] LABS: BLOOD UREA NITROGEN 15 MG/DL (7-18); CALCIUM LEVEL 8.5 MG/DL (8.8-10.2); CARBON DIOXIDE LEVEL 26 MEQ/L (21-32); CHLORIDE LEVEL 104 MEQ/L (98-107); CREATININE FOR GFR 0.88 MG/DL (0.55-1.30); GLOMERULAR FILTRATION RATE > 60.0 (>32); GLUCOSE, FASTING 73 MG/DL (70-100); IRON (FE) 29 UG/DL (50-170); POTASSIUM SERUM 4.6 MEQ/L (3.5-5.1); SODIUM LEVEL 137 MEQ/L (136-145)
[2019-05-13 07:44] LABS: HEMOGLOBIN A1c 12.6 %
== END ==
LOC: SKLAB4 08:28
PROVIDERS: ATTEND Internal Medicine
DX: E11.9 Type 2 diabetes mellitus without complications (principal)

== ENCOUNTER → 2019-05-16 | Outpatient (REF) | payer MEDICARE | LOC: SKLAB4 08:59 | PROVIDERS: ATTEND Internal Medicine | DX: D64.9 Anemia, unspecified (principal); K92.2 Gastrointestinal hemorrhage, unspecified ==

== ENCOUNTER → 2019-05-18 | Outpatient (REF) | payer MEDICARE | LOC: SKLAB4 10:35 | PROVIDERS: ATTEND Internal Medicine | DX: D64.9 Anemia, unspecified (principal); Z12.11 Encounter for screening for malignant neoplasm of colon ==

== ENCOUNTER → 2019-05-21 | Outpatient (REF) | payer MEDICARE ==
[2019-05-21 07:51] LABS: HEMATOCRIT 26.6 % (36.0-47.0); HEMOGLOBIN 8.2 g/dl (12.0-15.5); MEAN CORPUSCULAR HEMOGLOBIN 26.4 pg (27.0-33.0); MEAN CORPUSCULAR HGB CONC 30.8 g/dl (32.0-36.5); MEAN CORPUSCULAR VOLUME 85.5 fl (80.0-96.0); PLATELET COUNT, AUTOMATED 453 10^3/uL (150-450); RED BLOOD COUNT 3.11 10^6/uL (4.00-5.40); WHITE BLOOD COUNT 5.8 10^3/uL (4.0-10.0)
== END ==
LOC: SKLAB4 07:09
PROVIDERS: ATTEND Internal Medicine
DX: D64.9 Anemia, unspecified (principal)

== ENCOUNTER → 2019-05-27 | Outpatient (REF) | payer MEDICARE ==
[2019-05-27 09:58] LABS: BLOOD UREA NITROGEN 11 MG/DL (7-18); CALCIUM LEVEL 8.2 MG/DL (8.8-10.2); CARBON DIOXIDE LEVEL 25 MEQ/L (21-32); CHLORIDE LEVEL 101 MEQ/L (98-107); CREATININE FOR GFR 0.92 MG/DL (0.55-1.30); GLOMERULAR FILTRATION RATE > 60.0 (>32); GLUCOSE, FASTING 239 MG/DL (70-100); POTASSIUM SERUM 4.5 MEQ/L (3.5-5.1); SODIUM LEVEL 135 MEQ/L (136-145)
== END ==
LOC: SKLAB4 09:49
PROVIDERS: ATTEND Internal Medicine
DX: E87.1 Hypo-osmolality and hyponatremia (principal); E11.9 Type 2 diabetes mellitus without complications

== ENCOUNTER → 2019-06-04 | Outpatient (REF) | payer MEDICARE ==
[2019-06-04 11:04] LABS: HEMATOCRIT 25.5 % (36.0-47.0); HEMOGLOBIN 7.9 g/dl (12.0-15.5); MEAN CORPUSCULAR HEMOGLOBIN 25.8 pg (27.0-33.0); MEAN CORPUSCULAR VOLUME 83.3 fl (80.0-96.0); PLATELET COUNT, AUTOMATED 248 10^3/uL (150-450); RED BLOOD COUNT 3.06 10^6/uL (4.00-5.40); WHITE BLOOD COUNT 4.4 10^3/uL (4.0-10.0)
[2019-06-04 11:39] LABS: HEMOGLOBIN A1c 8.9 %
== END ==
LOC: SKLAB4 10:30
PROVIDERS: ATTEND Internal Medicine
DX: D64.9 Anemia, unspecified (principal); E03.9 Hypothyroidism, unspecified; E11.9 Type 2 diabetes mellitus without complications

== ENCOUNTER → 2019-06-20 | Outpatient (REF) | payer MEDICARE ==
[2019-06-20 09:11] LABS: HEMOGLOBIN A1c 9.2 %
== END ==
LOC: SKLAB4 10:09
PROVIDERS: ATTEND Internal Medicine
DX: E11.9 Type 2 diabetes mellitus without complications (principal)

== ENCOUNTER → 2019-07-03 | Outpatient (REF) | payer MEDICARE ==
[~2019-07-03] MED LIST changes: -METF-791 PO; +METF-838 PO
[2019-07-03 06:52] LABS: HEMATOCRIT 24.2 % (36.0-47.0); HEMOGLOBIN 7.5 g/dl (12.0-15.5); MEAN CORPUSCULAR HEMOGLOBIN 24.7 pg (27.0-33.0); MEAN CORPUSCULAR VOLUME 79.6 fl (80.0-96.0); PLATELET COUNT, AUTOMATED 275 10^3/uL (150-450); RED BLOOD COUNT 3.04 10^6/uL (4.00-5.40); WHITE BLOOD COUNT 4.9 10^3/uL (4.0-10.0)
== END ==
LOC: SKLAB4 10:32
PROVIDERS: ATTEND Internal Medicine
DX: E11.9 Type 2 diabetes mellitus without complications (principal); D64.9 Anemia, unspecified

== ENCOUNTER → 2019-07-18 | Outpatient (REF) | payer MEDICARE ==
[2019-07-18 09:15] LABS: HEMATOCRIT 27.5 % (36.0-47.0); HEMOGLOBIN 8.5 g/dl (12.0-15.5); MEAN CORPUSCULAR HEMOGLOBIN 24.1 pg (27.0-33.0); MEAN CORPUSCULAR HGB CONC 30.9 g/dl (32.0-36.5); MEAN CORPUSCULAR VOLUME 77.9 fl (80.0-96.0); PLATELET COUNT, AUTOMATED 303 10^3/uL (150-450); RED BLOOD COUNT 3.53 10^6/uL (4.00-5.40); WHITE BLOOD COUNT 5.9 10^3/uL (4.0-10.0)
== END ==
LOC: SKLAB4 11:28
PROVIDERS: ATTEND Internal Medicine
DX: D64.9 Anemia, unspecified (principal)

== ENCOUNTER → 2019-08-08 | Outpatient (REF) | payer MEDICARE ==
[~2019-08-08] MED LIST changes: +ASCO500T PO; +ATOR1TAB21 PO; +DIGO0.123 PO; +DULC10SU2 PR; +ENEMENE PR; +ESCI20TA16; +ESCI20TA16 PO; +FAMO20TA PO; +FERR32TA PO; +LATA0.0015; +LISI10TA22 PO; +METO1TAB87 PO; +MOM30SS PO; +PURE500C5 PO; +SENN1TAB41 PO; +TRAD5TAB PO; +TRES100I SC; +TRUL0.5I SQ; +VITMTA PO; +XARE20TA PO
== END ==
LOC: SKLAB4 12:30
PROVIDERS: ATTEND Internal Medicine
DX: D64.9 Anemia, unspecified (principal)

== ENCOUNTER → 2019-08-15 | Outpatient (REF) | payer MEDICARE ==
[~2019-08-15] MED LIST changes: -ASCO500T PO; -ATOR1TAB21 PO; -DIGO0.123 PO; -DULC10SU2 PR; -ENEMENE PR; -ESCI20TA16; -ESCI20TA16 PO; -FAMO20TA PO; -FERR32TA PO; -LATA0.0015; -LISI10TA22 PO; -METO1TAB87 PO; -MOM30SS PO; -PURE500C5 PO; -SENN1TAB41 PO; -TRAD5TAB PO; -TRES100I SC; -TRUL0.5I SQ; -VITMTA PO; -XARE20TA PO
[2019-08-15 08:17] LABS: HEMATOCRIT 26.8 % (36.0-47.0); HEMOGLOBIN 8.1 g/dl (12.0-15.5); MEAN CORPUSCULAR HEMOGLOBIN 23.5 pg (27.0-33.0); MEAN CORPUSCULAR HGB CONC 30.2 g/dl (32.0-36.5); MEAN CORPUSCULAR VOLUME 77.9 fl (80.0-96.0); PLATELET COUNT, AUTOMATED 302 10^3/uL (150-450); RED BLOOD COUNT 3.44 10^6/uL (4.00-5.40); WHITE BLOOD COUNT 5.7 10^3/uL (4.0-10.0)
[2019-08-15 09:01] LABS: BLOOD UREA NITROGEN 18 MG/DL (7-18); CARBON DIOXIDE LEVEL 27 MEQ/L (21-32); CHLORIDE LEVEL 104 MEQ/L (98-107); CREATININE FOR GFR 0.89 MG/DL (0.55-1.30); GLOMERULAR FILTRATION RATE > 60.0 (>32); GLUCOSE, FASTING 119 MG/DL (70-100); POTASSIUM SERUM 4.3 MEQ/L (3.5-5.1); SODIUM LEVEL 138 MEQ/L (136-145)
[2019-08-15 09:02] LABS: CALCIUM LEVEL 8.7 MG/DL (8.8-10.2)
[2019-08-15 10:03] LABS: HEMOGLOBIN A1c 8.2 %
== END ==
LOC: SKLAB4 12:08
PROVIDERS: ATTEND Internal Medicine
DX: E11.9 Type 2 diabetes mellitus without complications (principal); E03.9 Hypothyroidism, unspecified

== ENCOUNTER → 2019-09-03 | Outpatient (REF) | payer MEDICARE ==
[2019-09-03 08:29] LABS: HEMOGLOBIN 8.3 g/dl (12.0-15.5); MEAN CORPUSCULAR HEMOGLOBIN 23.6 pg (27.0-33.0); MEAN CORPUSCULAR HGB CONC 30.7 g/dl (32.0-36.5); MEAN CORPUSCULAR VOLUME 76.9 fl (80.0-96.0); PLATELET COUNT, AUTOMATED 280 10^3/uL (150-450); RED BLOOD COUNT 3.51 10^6/uL (4.00-5.40)
== END ==
LOC: SKLAB4 12:15
PROVIDERS: ATTEND Internal Medicine
DX: D64.9 Anemia, unspecified (principal)

== ENCOUNTER → 2019-10-01 | Outpatient (REF) | payer MEDICARE ==
[2019-12-21 12:29] LABS: HEMOGLOBIN A1c 8.1 %
== END ==
LOC: SKLAB4 10:37
PROVIDERS: ATTEND Internal Medicine
DX: E03.9 Hypothyroidism, unspecified (principal)

== ENCOUNTER → 2019-10-29 | Outpatient (REF) | payer MEDICARE ==
--- NOTE | 2019-10-29 12:11 | REPVR ---
PROCEDURE INFORMATION: Exam: XR Right Hand Exam date and time: 10/29/2019 11:34 AM Age: 84 years old Clinical indication: Injury or trauma; Fall; Initial encounter; Sprain or strain; Hand; Right; Additional info: Pain right wrist and hand after fall TECHNIQUE: Imaging protocol: XR Right hand. Views: 1 or 2 views. COMPARISON: No relevant prior studies available. FINDINGS: Bones/joints: There is osteopenia. Mild arthritic changes seen within the interphalangeal joints. Periarticular erosions are seen involving the lateral aspect of the 3rd distal interphalangeal joint. Arthritic changes are moderate involving the 3rd and 2nd metacarpophalangeal joints. There is no fracture, dislocation or subluxation. Soft tissues: Normal. IMPRESSION: Arthritis. Osteopenia. No fracture. Electronically signed by: Jasvir Mayes On 10/29/2019 12:11:13 PM
--- NOTE | 2019-10-29 12:12 | REPVR ---
PROCEDURE INFORMATION: Exam: XR Right Wrist Exam date and time: 10/29/2019 11:34 AM Age: 84 years old Clinical indication: Injury or trauma; Fall; Initial encounter; Fracture, traumatic injury; Closed fracture; Wrist; Right; Additional info: Pain right wrist and hand after fall TECHNIQUE: Imaging protocol: XR Right wrist. Views: 1 or 2 views. COMPARISON: No relevant prior studies available. FINDINGS: Bones/joints: There is osteopenia. There may be a subtle chip noted posteriorly involving the wrist. This could be a posterior spur although a subtle triquetrum fracture cannot be excluded. Soft tissues: Normal. IMPRESSION: Posterior spurring in the wrist versus a subtle triquetrum fracture. Electronically signed by: Jasvir Mayes On 10/29/2019 12:12:50 PM
== END ==
LOC: SKLAB4 11:01
PROVIDERS: ATTEND Internal Medicine
DX: M25.539 Pain in unspecified wrist (principal)

== ENCOUNTER → 2019-10-31 | Outpatient (REF) | payer MEDICARE ==
[2019-10-31 09:23] LABS: HEMATOCRIT 28.2 % (36.0-47.0); HEMOGLOBIN 8.8 g/dl (12.0-15.5); MEAN CORPUSCULAR HEMOGLOBIN 26.2 pg (27.0-33.0); MEAN CORPUSCULAR HGB CONC 31.2 g/dl (32.0-36.5); MEAN CORPUSCULAR VOLUME 83.9 fl (80.0-96.0); PLATELET COUNT, AUTOMATED 238 10^3/uL (150-450); RED BLOOD COUNT 3.36 10^6/uL (4.00-5.40)
[2019-10-31 09:45] LABS: CHOLESTEROL RISK RATIO 2.386 (<5)
[2019-10-31 11:38] LABS: FOLATE 20.3 NG/ML (>5.4)
== END ==
LOC: SKLAB4 11:17
PROVIDERS: ATTEND Internal Medicine
DX: D64.9 Anemia, unspecified (principal)

== ENCOUNTER → 2019-12-03 | Outpatient (REF) | payer MEDICARE ==
[2019-12-03 08:51] LABS: ALBUMIN 2.8 GM/DL (3.2-5.2); BILIRUBIN,TOTAL 0.2 MG/DL (0.2-1.0); CALCIUM LEVEL 8.5 MG/DL (8.8-10.2); CREATININE FOR GFR 1.01 MG/DL (0.55-1.30); GLOMERULAR FILTRATION RATE 55.7 (>32); POTASSIUM SERUM 4.6 MEQ/L (3.5-5.1); TOTAL PROTEIN 6.4 GM/DL (6.4-8.2)
== END ==
LOC: SKLAB4 15:08
PROVIDERS: ATTEND Internal Medicine
DX: I10 Essential (primary) hypertension (principal); E11.9 Type 2 diabetes mellitus without complications

== ENCOUNTER → 2019-12-17 | Outpatient (REF) | payer MEDICARE ==
[2019-12-17 09:26] LABS: PHOSPHORUS LEVEL 4.3 MG/DL (2.5-4.9)
[2019-12-17 09:57] LABS: PTH INTACT 31.8 PG/ML (18.5-88.0); TOTAL 25(OH) VITAMIN D 35.8 NG/ML (30.0-100.0)
== END ==
LOC: SKLAB4 10:40
PROVIDERS: ATTEND Internal Medicine
DX: N18.9 Chronic kidney disease, unspecified (principal); Z79.899 Other long term (current) drug therapy

== ENCOUNTER → 2019-12-26 | Outpatient (REF) | payer MEDICARE | LOC: SKLAB4 11:09 | PROVIDERS: ATTEND Internal Medicine | DX: Z20.828 Contact with and (suspected) exposure to other viral communicable diseases (principal) ==

== ENCOUNTER → 2019-12-31 | Outpatient (REF) | payer MEDICARE ==
[~2019-12-31] MED LIST changes: +ASCO500T PO; +ATOR1TAB21 PO; +DULC10SU2 PR; +ENEMENE PR; +ESCI20TA; +ESCI20TA PO; +FERR32TA PO; +LATA0.0015; +LISI10TA4 PO; +MOM30SS PO; +PURE500C5 PO; +SENN1TAB41 PO; +TRAD5TAB PO; +TRES100I SC; +TRUL0.5I SQ; +VITMTA PO
[2019-12-31 09:19] LABS: HEMATOCRIT 29.2 % (36.0-47.0); HEMOGLOBIN 9.3 g/dl (12.0-15.5); MEAN CORPUSCULAR HEMOGLOBIN 28.4 pg (27.0-33.0); MEAN CORPUSCULAR HGB CONC 31.8 g/dl (32.0-36.5); PLATELET COUNT, AUTOMATED 232 10^3/uL (150-450); RED BLOOD COUNT 3.28 10^6/uL (4.00-5.40)
== END ==
LOC: SKLAB4 07:00
PROVIDERS: ATTEND Internal Medicine
DX: D64.9 Anemia, unspecified (principal)

== ENCOUNTER → 2020-01-01 | Outpatient (REF) | payer MEDICARE, MEDICAID ==
[~2020-01-01] MED LIST changes: +DIGO0.123 PO; -ESCI20TA; -ESCI20TA PO; +ESCI20TA16; +ESCI20TA16 PO; +FAMO20TA PO; +LISI10TA22 PO; -LISI10TA4 PO; +METO1TAB87 PO; +XARE20TA PO
== END ==
LOC: SKLAB4 12-31 10:36 → EDSTATUS 01-15 14:10
PROVIDERS: ATTEND Internal Medicine
DX: Z20.828 Contact with and (suspected) exposure to other viral communicable diseases (principal)

== ENCOUNTER → 2020-01-08 | Outpatient (REF) | payer MEDICARE, MEDICAID | LOC: SKLAB4 08:00 | PROVIDERS: ATTEND Internal Medicine | DX: Z20.828 Contact with and (suspected) exposure to other viral communicable diseases (principal) ==

== ENCOUNTER → 2020-01-15 | Outpatient (REF) | payer MEDICARE, MEDICAID ==
[2020-01-15 16:53] LABS: INFLUENZA A AMPLIFICATION NEGATIVE (NEGATIVE); INFLUENZA B AMPLIFICATION NEGATIVE (NEGATIVE)
== END ==
LOC: SKLAB4 08:00
PROVIDERS: ATTEND Internal Medicine
DX: Z20.828 Contact with and (suspected) exposure to other viral communicable diseases (principal)
CPT/HCPCS: 87502; U0003

== ENCOUNTER → 2020-01-22 | Outpatient (REF) | payer MEDICARE ==
[~2020-01-22] MED LIST changes: -ASCO500T PO; -DIGO0.123 PO; -DULC10SU2 PR; -ENEMENE PR; +ESCI20TA; -ESCI20TA16; -ESCI20TA16 PO; -FAMO20TA PO; -FERR32TA PO; -LISI10TA22 PO; -METO1TAB87 PO; -MOM30SS PO; -SENN1TAB41 PO; -XARE20TA PO
== END ==
LOC: SKLAB4 07:56
PROVIDERS: ATTEND Internal Medicine
DX: Z20.828 Contact with and (suspected) exposure to other viral communicable diseases (principal)

== ENCOUNTER → 2020-01-23 | Outpatient (REF) | payer MEDICARE | LOC: SKLAB4 11:12 | PROVIDERS: ATTEND Internal Medicine | DX: Z01.812 Encounter for preprocedural laboratory examination (principal); Z20.828 Contact with and (suspected) exposure to other viral communicable diseases ==

== ENCOUNTER 2020-01-28 07:08 | Inpatient (IN) | payer MEDICARE ==
[~2020-01-28] VITALS: Ht 167.6 cm; Wt 74.7 kg
[~2020-01-28 07:08] MED LIST changes: +NS 1,000 ML IV ONE
[2020-01-28] MEDS ORDERED: propofoL 200 MG/20 ML VIAL As Ordered ONE (08:17)
[2020-01-28] MEDS ORDERED: LIDOCAINE 2% 100MG/5ML SDV (FOR ANES.) As Ordered ONE (08:17)
[2020-01-28] MEDS: lisinopriL 10 MG TAB PO SCH (09:00)
[2020-01-28 09:46] LABS: HEMATOCRIT 34.3 % (36.0-47.0); HEMOGLOBIN 10.6 g/dl (12.0-15.5); MEAN CORPUSCULAR HEMOGLOBIN 27.1 pg (27.0-33.0); MEAN CORPUSCULAR HGB CONC 30.9 g/dl (32.0-36.5); MEAN CORPUSCULAR VOLUME 87.7 fl (80.0-96.0); PLATELET COUNT, AUTOMATED 251 10^3/uL (150-450); RED BLOOD COUNT 3.91 10^6/uL (4.00-5.40); WHITE BLOOD COUNT 8.2 10^3/uL (4.0-10.0)
[2020-01-28 10:09] LABS: BLOOD UREA NITROGEN 17 MG/DL (7-18); CALCIUM LEVEL 8.9 MG/DL (8.8-10.2); CARBON DIOXIDE LEVEL 28 MEQ/L (21-32); CHLORIDE LEVEL 106 MEQ/L (98-107); CREATININE FOR GFR 0.82 MG/DL (0.55-1.30); GLOMERULAR FILTRATION RATE > 60.0 (>32); GLUCOSE, FASTING 43 MG/DL (70-100); POTASSIUM SERUM 2.9 MEQ/L (3.5-5.1); SODIUM LEVEL 142 MEQ/L (136-145)
--- NOTE | 2020-01-28 11:01 | IPNPDOC ---
Date Seen The patient was seen on 01/28/20. Progress Note Interval history: 85-year-old female patient with DM type 2, HTN, hypothyroidism, arthritis, h/o uterine cancer s/p surgery in 2014, recently admitted to [facility] for general debility was following in [facility] GI clinic for iron deficiency anemia and Fecal occult blood test positive.. Patient was schedule for Colonoscopy for further evaluation after discussion of the risks benefits and alternatives with patient nd her brother ( HCP). Today when patient is seen in the OPP pre-procedure room she is noted to have tachycardia upto 140s and irregular heart rate. Labs were ordered and discussed with [employer] Dr. Ibarra (patient previously had NST in 2018 at their office). Due to new changes in cardiac rhythm and heart rate, Patient was recommended to be admitted to hospital and complete further work up and stabilization prior to Colonoscopy. Anesthesia deemed the patient to be at high risk at this time due to the same. So, Hospitalist service is called for admitting the patient. Off note; Electrolytes were reported abnormal. which needs correction. Recommendations: -- Can resume on clear liquid diet for today. -- Monitor and correct electrolytes -- Consider EKG and cardiac evaluation. -- Based on the clinical status will consider doing colonoscopy tomorrow. -- Patient and her brother ( HCP) are updated on the changes. Please call GI if any change in status. Plan of care discussed with patient and primary team. VS, I&O, 24H, Fishbone Vital Signs/I&O Vital Signs Date Time Temp Pulse Resp B/P (MAP) Pulse Ox O2 Delivery O2 Flow Rate FiO2 01/28/20 07:51 96.9 120 20 198/103 (134) 96 Room Air Laboratory Data 24H LABS Laboratory Tests 2 01/28/20 09:09: Nucleated Red Blood Cells % (auto) 0.0, Anion Gap 8, Glomerular Filtration Rate > 60.0, Calcium Level 8.9 CBC/BMP Laboratory Tests 01/28/20 09:09 KWABENA LUNA MD Jan 28, 2020 11:01
[2020-01-28] MEDS ORDERED: MOM 30ML SUSPENSION UDC PO PRN (11:30)
[2020-01-28] MEDS ORDERED: MAALOX 30 ML SUSP *UDC PO PRN (11:30)
[2020-01-28] MEDS ORDERED: ACETAMINOPHEN TAB 650MG DOSE (2X325MG) PO PRN (11:30)
[2020-01-28] MEDS ORDERED: DEXTROSE 50% 50 ML SYRINGE IV PRN (11:45)
[2020-01-28] MEDS ORDERED: GLUCOSE 4GM CHEW TABLET PO PRN (11:45)
[2020-01-28] MEDS ORDERED: GLUCAGON INJ 1MG VIAL SC PRN (11:45)
--- NOTE | 2020-01-28 11:56 | HPEPDOC ---
[facility] Medical History & Physical Date of Admission Jan 28, 2020 Date of Service: Jan 28, 2020 History and Physical CHIEF COMPLAINT: A fib with RVR HISTORY OF PRESENT ILLNESS: 85F resident of [facility] of IDDM, HTN, Hypothyroidism, CKD, anemia who was about to undergo outpatient colonoscopy when she was found to have asymptomatic tachycardia, EKG showed A fib. Patients potassium found to be 2.9. Patient admitted to medical service for management of A fib with RVR suspected to be due to electrolyte imbalance and possibly coloscopy tomorrow. Patient was seen at bedside, she is not a good historian and I obtained her medical history from chart review. She was able to answer some basic questions for me. She denies b eing in any pain or distress. PAST MEDICAL HISTORY: 1. Diabetes mellitus on insulin. 2. Hypertension. 3. Hypothyroidism. 4. Chronic kidney disease. 5. Noncompliance with medications. 6. Chronic anemia. PAST SURGICAL HISTORY: hysterectomy. SOCIAL HISTORY: Per chart review: Previously drank alcohol socially not anymore Quit tobacco use over 30 years ago Denies illicit drug use FAMILY HISTORY: reviewed none contributory ALLERGIES: Please see below. REVIEW OF SYSTEMS: 10 point review of systems complete all negative otherwise stated in HPI HOME MEDICATIONS: Please see below. PHYSICAL EXAMINATION: Constitutional: Sleepy, in no apparent distress ENT: Sclera are clear. Mucosa is moist. Respiratory: Lungs CTA bilaterally. No respiratory distress. No use of accessory muscles. Cardiovascular: Irregular heart rate, no JVD Gastrointestinal: Abdomen is soft, non distended, non tender, BS present. Musculoskeletal: No edema. Mental Status: normal affect Skin: Warm, dry LABORATORY DATA: See below. MICROBIOLOGY: Please see below. ASSESSMENT/PLAN 85F resident of [facility] of IDDM, HTN, Hypothyroidism, CKD, anemia who was about to undergo outpatient colonoscopy when she was found to have asymptomatic tachycardia, EKG showed A fib with RVR. Patients potassium found to be 2.9. Patient admitted to medical service for management of A fib with RVR suspected to be due to electrolyte imbalance and possibly coloscopy after. # A Fib with RVR: possibly 2/2 hypokalemia. Correct electrolytes. PCU on Tele. Fu EKG. No anticoagulation for now given lower GI bleed. Start low dose metoprolol tartrate 12.5 BID. # Hypokalemia: 2.9. replace. monitor. Fu MG. # Suspected LGIB: FOBT +. Plan for scopes tomorrow if A fib resolved. CLD for now. GI consulted Dr Heck. # DM: ISS. Frequent Accu-Cheks. Hypoglycemic precautions. # Hypertension: Continue home meds. Monitor and titrate # Hypothyroidism: resume Synthroid. # CKD: Monitor. Avoid nephrotoxins. # Chronic anemia: possible lower GI bleed, see above. # MDD: continue lexparo # DVT prophylaxis: SCDs only A Yousef Hospitalist Vital Signs Vital Signs Date Time Temp Pulse Resp B/P (MAP) Pulse Ox O2 Delivery O2 Flow Rate FiO2 01/28/20 10:30 97.4 127 20 156/75 (102) 97 Room Air Laboratory Data Labs 24H Laboratory Tests 2 01/28/20 09:09: Nucleated Red Blood Cells % (auto) 0.0, Anion Gap 8, Glomerular Filtration Rate > 60.0, Calcium Level 8.9 CBC/BMP Laboratory Tests 01/28/20 09:09 Home Medications Scheduled Acetaminophen (Acetaminophen) 500 Mg Tablet, 1,000 MG PO BID Ascorbic Acid (Ascorbic Acid) 500 Mg Tablet, 500 MG PO DAILY Atorvastatin Calcium (Atorvastatin Calcium) 20 Mg Tablet, 20 MG PO QHS Cyclosporine (Restasis) 0.05 % Emu, 1 DROP OU BID Docusate Sodium (Colace) 100 Mg Capsule, 200 MG PO DAILY Dulaglutide (Trulicity) 1.5 Mg/0.5 Ml Pen.injctr, 1.5 MG SQ QWEEK FRIDAYS Escitalopram Oxalate (Escitalopram Oxalate) 20 Mg Tablet, 20 MG PO DAILY Ferrous Gluconate (Ferrous Gluconate) 324 Mg Tablet, 324 MG PO DAILY Insulin Degludec (Tresiba) 100 Unit/1 Ml Vial, 44 UNIT SC QHS Latanoprost (Xalatan) 0.005% 2.5ML Drops, 1 DROP OU QHS Levothyroxine Sodium (Levothyroxine Sodium) 100 Mcg Tab, 100 MCG PO DAILY Linagliptin (Tradjenta) 5 Mg Tablet, 5 MG PO DAILY Lisinopril (Lisinopril) 10 Mg Tablet, 10 MG PO DAILY Metformin HCl (Metformin HCl ER) 500 Mg Tab, 1,000 MG PO DAILY Multivitamins (Thera M Plus Tablet) 1 Each Tablet, 1 TAB PO DAILY Sennosides/Docusate Sodium (Senna-S Tablet) 1 Each Tablet, 2 TAB PO QHS Timolol Maleate (Timolol Maleate) 0.5% 5ML Drop.daily, 1 DROP OU DAILY Scheduled PRN Bisacodyl (Dulcolax) 10 Mg Supp.rect, 10 MG MN DAILY PRN for CONSTIPATION Milk Of Magnesia (Milk of Magnesia) 2,400 Mg/10 Ml Oral.susp, 10 ML PO DAILY PRN for CONSTIPATION Sodium Phosphate,Johnson-Dibasic (Enema) 133 Ml Enema, 1 RATNA MN DAILY PRN for CONSTIPATION Allergies Coded Allergies: brimonidine (Verified Allergy, Unknown, 01/20/20) dorzolamide (Verified Allergy, Unknown, 01/20/20) A-FIB/CHADSVASC A-FIB History Current/History of A-Fib/PAF?: Yes Current PO Anticoag Therapy: No KEZIA PAUL MD Jan 28, 2020 11:56
[2020-01-28] MEDS: HumaLOG INSULIN (NovoLOG) PER UNIT SC SCH ×3 (12:00→21:00)
[2020-01-28] MEDS ORDERED: POTASSIUM CHLORIDE 10 MEQ SR TABLET PO ONE (12:00)
[2020-01-28] MEDS: KCL 10MEQ/100ML SWI (KRUN) 10 MEQ in IV 1 EA IV SCH ×4 (12:25→15:48)
[2020-01-28 13:08] LABS: HEMATOCRIT 34.9 % (36.0-47.0); HEMOGLOBIN 11.1 g/dl (12.0-15.5); MEAN CORPUSCULAR HEMOGLOBIN 28.1 pg (27.0-33.0); MEAN CORPUSCULAR HGB CONC 31.8 g/dl (32.0-36.5); MEAN CORPUSCULAR VOLUME 88.4 fl (80.0-96.0); PLATELET COUNT, AUTOMATED 201 10^3/uL (150-450); RED BLOOD COUNT 3.95 10^6/uL (4.00-5.40); WHITE BLOOD COUNT 7.6 10^3/uL (4.0-10.0)
[2020-01-28] MEDS ORDERED: KCL 10MEQ IN STERILE WATER 100ML As Ordered ONE ×2 (13:26→14:30)
[2020-01-28 13:27] LABS: BLOOD UREA NITROGEN 17 MG/DL (7-18); CALCIUM LEVEL 8.5 MG/DL (8.8-10.2); CARBON DIOXIDE LEVEL 27 MEQ/L (21-32); CHLORIDE LEVEL 106 MEQ/L (98-107); CREATININE FOR GFR 0.76 MG/DL (0.55-1.30); GLOMERULAR FILTRATION RATE > 60.0 (>32); GLUCOSE, FASTING 56 MG/DL (70-100); MAGNESIUM LEVEL 1.8 MG/DL (1.8-2.4); POTASSIUM SERUM 3.5 MEQ/L (3.5-5.1); SODIUM LEVEL 140 MEQ/L (136-145)
[2020-01-28] MEDS ORDERED: ESCI20TA PO (14:59)
[2020-01-28] MEDS ORDERED: DULC10SU2 PR (14:59)
[2020-01-28] MEDS ORDERED: ENEMENE PR (14:59)
[2020-01-28] MEDS ORDERED: LISI10TA4 PO (14:59)
[2020-01-28] MEDS ORDERED: SENN1TAB41 PO (14:59)
[2020-01-28] MEDS ORDERED: MOM30SS PO (14:59)
[2020-01-28] MEDS ORDERED: FERR32TA PO (14:59)
[2020-01-28] MEDS ORDERED: ASCO500T PO (14:59)
[2020-01-28] MEDS ORDERED: MAG SULF 1GM/100ML (MAG RUN) 1 GM in IV 1 EA IV ONE (15:00)
[2020-01-28 15:30] VITALS: BP 123/62
[2020-01-28] MEDS ORDERED: METOPROLOL TART 12.5 MG PER 1/2 TAB PO SCH (18:15)
[2020-01-28 20:00] VITALS: BP 150/72
[2020-01-28] MEDS: ATORVASTATIN 20 MG TAB PO SCH (22:01)
[2020-01-28] MEDS: DOCUSATE SODIUM 100MG CAPSULE PO SCH (22:02)
[2020-01-28] MEDS: LATANOPROST 0.005% OPHTH SOLN 2.5 ML OU SCH (22:02)
[2020-01-29] VITALS (10 sets, daily range): BP systolic 130–153; BP diastolic 63–87
[2020-01-29 05:42] LABS: HEMATOCRIT 33.3 % (36.0-47.0); HEMOGLOBIN 10.8 g/dl (12.0-15.5); MEAN CORPUSCULAR HEMOGLOBIN 28.2 pg (27.0-33.0); MEAN CORPUSCULAR HGB CONC 32.4 g/dl (32.0-36.5); MEAN CORPUSCULAR VOLUME 86.9 fl (80.0-96.0); PLATELET COUNT, AUTOMATED 246 10^3/uL (150-450); RED BLOOD COUNT 3.83 10^6/uL (4.00-5.40); WHITE BLOOD COUNT 8.6 10^3/uL (4.0-10.0)
[2020-01-29 06:02] LABS: BLOOD UREA NITROGEN 13 MG/DL (7-18); CARBON DIOXIDE LEVEL 28 MEQ/L (21-32); CHLORIDE LEVEL 108 MEQ/L (98-107); CREATININE FOR GFR 0.83 MG/DL (0.55-1.30); GLOMERULAR FILTRATION RATE > 60.0 (>32); GLUCOSE, FASTING 66 MG/DL (70-100); MAGNESIUM LEVEL 1.9 MG/DL (1.8-2.4); POTASSIUM SERUM 4.4 MEQ/L (3.5-5.1); SODIUM LEVEL 139 MEQ/L (136-145)
[2020-01-29] MEDS: LEVOTHYROXINE 100MCG TABLET (0.1MG) PO SCH (06:14)
[2020-01-29] MEDS: HumaLOG INSULIN (NovoLOG) PER UNIT SC SCH ×4 (07:30→21:00)
[2020-01-29] MEDS ORDERED: MAG SULF 1GM/100ML (MAG RUN) 1 GM in IV 1 EA IV ONE (08:00)
[2020-01-29] MEDS: DOCUSATE SODIUM 100MG CAPSULE PO SCH ×2 (08:42→21:30)
[2020-01-29] MEDS: lisinopriL 10 MG TAB PO SCH (08:42)
[2020-01-29] MEDS: ESCITALOPRAM OXALATE 10 MG TAB (LEXAPRO) PO SCH (08:42)
[2020-01-29] MEDS: METOPROLOL TART 25 MG TABLET PO SCH ×2 (08:43→21:31)
[2020-01-29] MEDS ORDERED: hydroCHLOROthiazide 12.5 MG CAPSULE PO SCH (09:00)
[2020-01-29] MEDS ORDERED: METOPROLOL 5 MG/5 ML VIAL IV ONE (11:00)
--- NOTE | 2020-01-29 12:39 | IPNPDOC ---
Text Note Date of Service The patient was seen on 01/29/20. NOTE Subjective: Patient seen and examined this morning at bedside. She says she's feeling well. Denies any chest pain or palpitations. Denies shortness of breath. Nurse endorses no overnight events. Heart rate has been better controlled since yesterday. Objective: Constitutional: Awake, alert, in no apparent distress ENT: Sclera are clear. Mucosa is moist. Respiratory: Lungs CTA bilaterally. No respiratory distress. No use of accessory muscles. Cardiovascular: Irregular heart rate, no JVD Gastrointestinal: Abdomen is soft, non distended, non tender, BS present. Musculoskeletal: No edema. Mental Status: normal affect Skin: Warm, dry Assessment/plan: 85F resident of [facility] PMHx of IDDM, HTN, Hypothyroidism, CKD, anemia who was about to undergo outpatient colonoscopy when she was found to have asymptomatic tachycardia, EKG showed A fib with RVR. Patients potassium found to be 2.9. Patient admitted to medical service for management of A fib with RVR suspected to be due to electrolyte imbalance. Patient achieved better heart rate control with beta newton and will be able to proceed to get colonoscopy. Anticoagulation after colonoscopy. # A Fib with RVR: HR better controlled 90-100 with metoprolol. Correct electrolytes. Tele. Anticoagulation after colonoscopy. Continue PO metoprolol. Can proceed with colonoscopy if HR remains controlled. # Suspected LGIB: FOBT +. Plan for scopes today. GI consulted Dr Heck. # Hypokalemia: Corrected. monitor. # DM: ISS. Frequent Accu-Cheks. Hypoglycemic precautions. # Hypertension: Continue home meds. Monitor and titrate # Hypothyroidism: resume Synthroid. # CKD: Monitor. Avoid nephrotoxins. # Chronic anemia: possible lower GI bleed, see above. # MDD: continue lexparo # DVT prophylaxis: SCDs only A Yousef Hospitalist VSNataliia, I+O VS, Nataliia, I+O Laboratory Tests 01/29/20 05:18 Vital Signs Date Time Temp Pulse Resp B/P (MAP) Pulse Ox O2 Delivery O2 Flow Rate FiO2 01/29/20 11:46 125 20 150/83 (105) 98 Room Air 01/29/20 08:00 98.4 I&O- Last 24 Hours up to 6 AM 01/29/20 06:00 Intake Total 150 ml Output Total 0 ml Balance 150 ml KEZIA PAUL MD Jan 29, 2020 12:39
[2020-01-29] MEDS ORDERED: BISACODYL 10 MG SUPP PR ONE (13:00)
[2020-01-29] MEDS ORDERED: LIDOCAINE 2% 100MG/5ML SDV (FOR ANES.) As Ordered ONE (14:55)
[2020-01-29] MEDS ORDERED: propofoL 200 MG/20 ML VIAL As Ordered ONE (14:55)
[2020-01-29] MEDS ORDERED: PHENYLephrine HCL 500 MCG/5 ML (100MCG/ML) SYRINGE (J2370) As Ordered ONE (15:00)
[2020-01-29] MEDS: LATANOPROST 0.005% OPHTH SOLN 2.5 ML OU SCH (21:30)
[2020-01-29] MEDS: ATORVASTATIN 20 MG TAB PO SCH (21:31)
[2020-01-30] VITALS: BP 131/91
[2020-01-30 04:00] VITALS: BP 139/84
[2020-01-30 06:04] LABS: HEMATOCRIT 32.6 % (36.0-47.0); HEMOGLOBIN 10.5 g/dl (12.0-15.5); MEAN CORPUSCULAR HEMOGLOBIN 28.1 pg (27.0-33.0); MEAN CORPUSCULAR HGB CONC 32.2 g/dl (32.0-36.5); MEAN CORPUSCULAR VOLUME 87.2 fl (80.0-96.0); PLATELET COUNT, AUTOMATED 236 10^3/uL (150-450); RED BLOOD COUNT 3.74 10^6/uL (4.00-5.40); WHITE BLOOD COUNT 7.3 10^3/uL (4.0-10.0)
[2020-01-30 06:30] LABS: BLOOD UREA NITROGEN 14 MG/DL (7-18); CALCIUM LEVEL 8.3 MG/DL (8.8-10.2); CARBON DIOXIDE LEVEL 27 MEQ/L (21-32); CHLORIDE LEVEL 106 MEQ/L (98-107); CREATININE FOR GFR 0.92 MG/DL (0.55-1.30); GLOMERULAR FILTRATION RATE > 60.0 (>32); GLUCOSE, FASTING 129 MG/DL (70-100); POTASSIUM SERUM 4.3 MEQ/L (3.5-5.1); SODIUM LEVEL 140 MEQ/L (136-145)
[2020-01-30] MEDS: LEVOTHYROXINE 100MCG TABLET (0.1MG) PO SCH (06:48)
--- NOTE | 2020-01-30 07:14 | ECGEPIP ---
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 Nonspecific ST/T wave abnormalities Change in lead placement but otherwise similar to 04/06/19 Electronically Signed on 01-30-2020 7:14:35 EST by Jay Hinton
[2020-01-30] MEDS: HumaLOG INSULIN (NovoLOG) PER UNIT SC SCH ×4 (07:30→21:00)
[2020-01-30] MEDS ORDERED: LIQUID POLIBAR PLUS 105% w/v 1900ML BTL As Ordered ONE ×2 (07:49→08:36)
[2020-01-30 08:11] VITALS: BP 127/76
[2020-01-30] MEDS: DOCUSATE SODIUM 100MG CAPSULE PO SCH ×2 (09:44→21:24)
[2020-01-30] MEDS: lisinopriL 10 MG TAB PO SCH (09:45)
[2020-01-30] MEDS: METOPROLOL TART 25 MG TABLET PO SCH ×2 (09:45→21:33)
[2020-01-30] MEDS: ESCITALOPRAM OXALATE 10 MG TAB (LEXAPRO) PO SCH (09:46)
[2020-01-30] MEDS ORDERED: ONDANSETRON 4MG/2ML VIAL IV ONE (10:30)
[2020-01-30 12:33] VITALS: BP 130/67
[2020-01-30 16:26] VITALS: BP 122/61
--- NOTE | 2020-01-30 16:53 | REP ---
INDICATION: rule out colon mass or large polyps.. COMPARISON: None TECHNIQUE: The procedure was performed by Terese Barahona [facility], under the direct supervision of Dr. Watts. The images were reviewed with Dr. Watts. Liquid barium and air were instilled into the colon and retrograde flow of the barium air mixture. FINDINGS: The filter press tender head film shows no organomegaly, or pathological masses. The intestinal gas pattern is unremarkable. The barium column made it to the beginning of the transverse colon and the and stopped, and the patient had a difficult time retaining the barium. Multiple attempts were made to push both barium and air through the transverse colon and into the ascending colon, those attempts failed. There are multiple diverticula of the left colon. There is a clump of residual stool noted in the mid transverse colon that the barium was unable to get past.. . IMPRESSION: 1. Incomplete barium enema. Contributing factors include patient's inability to retain barium, and residual stool in the transverse colon. 2. Multiple left colonic diverticula. 0.6 minutes of fluoroscopy time was utilized for this procedure. Some fluoroscopic images are performed with last image hold technology. These images require no additional radiation <Electronically signed by Terese Barahona > 01/30/20 [id number] <Electronically signed by Kirt Watts > 01/30/20 [id number]
[2020-01-30 20:00] VITALS: BP 125/61
--- NOTE | 2020-01-30 20:13 | IPNPDOC ---
Text Note Date of Service The patient was seen on 01/30/20. NOTE Subjective: Patient seen and examined this morning at bedside. She says she's feeling well. Denies any chest pain or palpitations. Denies shortness of breath. Nurse endorses no overnight events. Heart rate is in the 70s. Patient going for barium study. Objective: Constitutional: Awake, alert, in no apparent distress ENT: Sclera are clear. Mucosa is moist. Respiratory: Lungs CTA bilaterally. No respiratory distress. No use of accessory muscles. Cardiovascular: Irregular heart rate, no JVD Gastrointestinal: Abdomen is soft, non distended, non tender, BS present. Musculoskeletal: No edema. Mental Status: normal affect Skin: Warm, dry Assessment/plan: 85F resident of [facility] PMx of IDDM, HTN, Hypothyroidism, CKD, anemia who was about to undergo outpatient colonoscopy when she was found to have asymptomatic tachycardia, EKG showed A fib with RVR. Patients potassium found to be 2.9. Patient admitted to medical service for management of A fib with RVR suspected t o be due to electrolyte imbalance. Patient achieved better heart rate control with beta newton and will be able to proceed to get colonoscopy. Anticoagulation after colonoscopy. # A Fib with RVR: HR better controlled 70s-90s with metoprolol. Correct electrolytes. Tele. Anticoagulation after colonoscopy. Continue PO metoprolol. Can proceed with colonoscopy if HR remains controlled. Will add loading dose digoxin following by 0.125 daily. # Suspected LGIB: FOBT +. GI consulted Dr Heck. Colonoscopy was unsuccessful initially on 01/29/2020 due to poor prep. Plan for barium enema 01/30/2020 was unsuccessful due to incontinence patient unable to hold the contrast and air and so study with failure be on transverse colon. Discussed this with Dr. Alonzo given the patient is currently in A. fib and will require anticoagulation in the context of a suspected GI bleed we'll attempt to do the colonoscopy and EGD once again. Plan right now is for patient to have a clear liquid diet 01/31/2020 and then bowel prep followed by EGD/colonoscopy on 02/01/2020. # Hypokalemia: Corrected. monitor. # DM: ISS. Frequent Accu-Cheks. Hypoglycemic precautions. # Hypertension: Continue home meds. Monitor and titrate # Hypothyroidism: resume Synthroid. # CKD: Monitor. Avoid nephrotoxins. # Chronic anemia: possible lower GI bleed, see above. # MDD: continue lexparo # DVT prophylaxis: SCDs only A Yousef Hospitalist Nataliia PERSAUD, I+O Nataliia PERSAUD I+O Laboratory Tests 01/30/20 04:58 Vital Signs Date Time Temp Pulse Resp B/P (MAP) Pulse Ox O2 Delivery O2 Flow Rate FiO2 01/30/20 16:26 98.8 106 18 122/61 (81) 96 Room Air I&O- Last 24 Hours up to 6 AM 01/30/20 06:00 Intake Total 1020 ml Output Total 0 ml Balance 1020 ml KEZIA PAUL MD Jan 30, 2020 20:13
[2020-01-30] MEDS: LATANOPROST 0.005% OPHTH SOLN 2.5 ML OU SCH (21:24)
[2020-01-30] MEDS: ATORVASTATIN 20 MG TAB PO SCH (21:24)
[2020-01-30] MEDS ORDERED: DIGOXIN INJ 0.5 MG/2 ML AMP (J1160) IV ONE (21:45)
[2020-01-31] VITALS: BP 128/74
[2020-01-31] MEDS ORDERED: RAMELTEON 8 MG TAB (ROZEREM) PO ONE (02:00)
[2020-01-31 04:00] VITALS: BP 148/72
[2020-01-31 05:11] LABS: HEMATOCRIT 31.2 % (36.0-47.0); HEMOGLOBIN 10.1 g/dl (12.0-15.5); MEAN CORPUSCULAR HEMOGLOBIN 28.2 pg (27.0-33.0); MEAN CORPUSCULAR HGB CONC 32.4 g/dl (32.0-36.5); MEAN CORPUSCULAR VOLUME 87.2 fl (80.0-96.0); PLATELET COUNT, AUTOMATED 202 10^3/uL (150-450); RED BLOOD COUNT 3.58 10^6/uL (4.00-5.40)
[2020-01-31 05:34] LABS: CALCIUM LEVEL 7.9 MG/DL (8.8-10.2); CREATININE FOR GFR 1.01 MG/DL (0.55-1.30); GLOMERULAR FILTRATION RATE 55.6 (>32)
[2020-01-31] MEDS: LEVOTHYROXINE 100MCG TABLET (0.1MG) PO SCH (05:52)
[2020-01-31 07:59] VITALS: BP 141/74
--- NOTE | 2020-01-31 08:28 | IPNPDOC ---
Text Note Date of Service The patient was seen on 01/31/20. NOTE Subjective: Patient seen and examined this morning at bedside. She says she's feeling well. Denies any chest pain or palpitations. Denies shortness of breath. Nurse endorses no overnight events. Heart rate is in the 90s. Understands plan for scopes tomorrow. Objective: Constitutional: Awake, alert, in no apparent distress ENT: Sclera are clear. Mucosa is moist. Respiratory: Lungs CTA bilaterally. No respiratory distress. No use of accessory muscles. Cardiovascular: Irregular heart rate, no JVD Gastrointestinal: Abdomen is soft, non distended, non tender, BS present. Musculoskeletal: No edema. Mental Status: normal affect Skin: Warm, dry Assessment/plan: 85F resident of [facility] of IDDM, HTN, Hypothyroidism, CKD, anemia who was about to undergo outpatient colonoscopy when she was found to have asymptomatic tachycardia, EKG showed A fib with RVR. Patients potassium found to be 2.9. Patient admitted to medical service for management of A fib with RVR suspected to be due to electrolyte imbalance. Patient achieved better heart rate control with beta newton and will be able to proceed to get colonoscopy. Anticoagulation after colonoscopy. # A Fib with RVR: HR better controlled 90s with metoprolol. Correct electrolytes. Tele. Anticoagulation after colonoscopy. Continue PO metoprolol. Can proceed with colonoscopy if HR remains controlled. s/p loading dose digoxin following by 0.125 daily. # Suspected LGIB: FOBT +. GI consulted Dr Heck. Colonoscopy was unsuccessful initially on 01/29/2020 due to poor prep. Plan for barium enema 01/30/2020 was unsuccessful due to incontinence patient unable to hold the contrast and air and so study with failure be on transverse colon. Discussed this with Dr. Alonzo given the patient is currently in A. fib and will require anticoagulation in the context of a suspected GI bleed we'll attempt to do the colonoscopy and EGD once again. Plan right now is for patient to have a clear liquid diet 01/31/2020 and then bowel prep followed by EGD/colonoscopy on 02/01/2020. # Hypokalemia: Corrected. monitor. # DM: ISS. Frequent Accu-Cheks. Hypoglycemic precautions. # Hypertension: Continue home meds. Monitor and titrate # Hypothyroidism: resume Synthroid. # CKD: Monitor. Avoid nephrotoxins. # Chronic anemia: possible lower GI bleed, see above. # MDD: continue lexparo # DVT prophylaxis: SCDs only A Yousemaurice Hospitalist Nataliia PERSAUD, I+O VSNataliia I+O Laboratory Tests 01/31/20 04:30 Vital Signs Date Time Temp Pulse Resp B/P (MAP) Pulse Ox O2 Delivery O2 Flow Rate FiO2 01/31/20 07:59 97.7 98 18 141/74 (96) 95 Room Air I&O- Last 24 Hours up to 6 AM 01/31/20 06:00 Intake Total 1320 ml Output Total 0 ml Balance 1320 ml KEZIA PAUL MD Jan 31, 2020 08:28
[2020-01-31] MEDS: HumaLOG INSULIN (NovoLOG) PER UNIT SC SCH ×4 (10:37→21:00)
[2020-01-31] MEDS: DIGOXIN 0.125 MG TAB PO SCH (10:38)
[2020-01-31] MEDS: ESCITALOPRAM OXALATE 10 MG TAB (LEXAPRO) PO SCH (10:39)
[2020-01-31] MEDS: METOPROLOL TART 25 MG TABLET PO SCH ×2 (10:39→21:18)
[2020-01-31] MEDS: DOCUSATE SODIUM 100MG CAPSULE PO SCH ×2 (10:40→21:18)
[2020-01-31] MEDS: lisinopriL 10 MG TAB PO SCH (10:40)
[2020-01-31 11:25] LABS: MAGNESIUM LEVEL 1.9 MG/DL (1.8-2.4)
[2020-01-31 11:39] VITALS: BP 153/69
[2020-01-31] MEDS ORDERED: GOLYTELY SOLN 4000 ML BTL PO ONE (12:00)
[2020-01-31 15:49] VITALS: BP 112/79
[2020-01-31] MEDS ORDERED: MIRALAX *UNIT DOSE* 17GM PACKET PO ONE ×2 (16:15→23:00)
[2020-01-31] MEDS ORDERED: MAGNESIUM CITRATE 300 ML BTL PO ONE (16:15)
[2020-01-31] MEDS ORDERED: LACTULOSE 20 GM/30 ML SYRUP UD PO ONE (16:15)
[2020-01-31] MEDS ORDERED: BISACODYL 5 MG TAB PO ONE (16:15)
--- NOTE | 2020-01-31 18:34 | ECGEPIP ---
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
[2020-01-31 20:00] VITALS: BP 108/50
[2020-01-31] MEDS: ATORVASTATIN 20 MG TAB PO SCH (21:18)
[2020-01-31] MEDS: LATANOPROST 0.005% OPHTH SOLN 2.5 ML OU SCH (21:18)
[2020-02-01] VITALS: BP 114/74
[2020-02-01 04:00] VITALS: BP 112/56
[2020-02-01 05:38] LABS: HEMATOCRIT 32.4 % (36.0-47.0); MEAN CORPUSCULAR HEMOGLOBIN 27.1 pg (27.0-33.0); MEAN CORPUSCULAR HGB CONC 30.9 g/dl (32.0-36.5); MEAN CORPUSCULAR VOLUME 87.8 fl (80.0-96.0); PLATELET COUNT, AUTOMATED 200 10^3/uL (150-450); RED BLOOD COUNT 3.69 10^6/uL (4.00-5.40); WHITE BLOOD COUNT 6.2 10^3/uL (4.0-10.0)
[2020-02-01 06:03] LABS: CALCIUM LEVEL 8.9 MG/DL (8.8-10.2); CREATININE FOR GFR 0.99 MG/DL (0.55-1.30); GLOMERULAR FILTRATION RATE 56.9 (>32); POTASSIUM SERUM 4.2 MEQ/L (3.5-5.1)
[2020-02-01] MEDS: LEVOTHYROXINE 100MCG TABLET (0.1MG) PO SCH (06:30)
[2020-02-01] MEDS: HumaLOG INSULIN (NovoLOG) PER UNIT SC SCH ×4 (07:30→21:00)
[2020-02-01 08:00] VITALS: BP 127/57
--- NOTE | 2020-02-01 08:47 | IPNPDOC ---
Text Note Date of Service The patient was seen on 02/01/20. NOTE Subjective: Patient seen and examined this morning at bedside. She says she's feeling well. Plan for colonoscopy this morning if prep is successful. Initially she had not had a bowel movement yet we repeated bowel regiment medications and she finally had a large solid bowel movement followed by 2 liquid bowel movements. Plan for scopes this evening Objective: Constitutional: Awake, alert, in no apparent distress ENT: Sclera are clear. Mucosa is moist. Respiratory: Lungs CTA bilaterally. No respiratory distress. No use of accessory muscles. Cardiovascular: Irregular heart rate, no JVD Gastrointestinal: Abdomen is soft, non distended, non tender, BS present. Musculoskeletal: No edema. Mental Status: normal affect Skin: Warm, dry Assessment/plan: 85F resident of [facility] PMHx of IDDM, HTN, Hypothyroidism, CKD, anemia who was about to undergo outpatient colonoscopy when she was found to have asymptomatic tachycardia, EKG showed A fib with RVR. Patients potassium found to be 2.9. Patient admitted to medical service for management of A fib with RVR suspected to be due to electrolyte imbalance. Patient achieved better heart rate control with beta newton and will be able to proceed to get colonoscopy. Anticoagulation after colonoscopy. # A Fib with RVR: HR better controlled 90s with metoprolol. Correct electrolytes. Tele. Anticoagulation after colonoscopy. Continue PO metoprolol. Can proceed with colonoscopy if HR remains controlled. s/p loading dose digoxin following by 0.125 daily. # Suspected LGIB: FOBT +. GI consulted Dr Heck. Colonoscopy was unsuccessful initially on 01/29/2020 due to poor prep. Plan for barium enema 01/30/2020 was unsuccessful due to incontinence patient unable to hold the contrast and air and so study with failure be on transverse colon. Discussed this with Dr. Alonzo given the patient is currently in A. fib and will require anticoagulation in the context of a suspected GI bleed we'll attempt to do the colonoscopy and EGD once again. Bowel prep followed by EGD/colonoscopy on 02/01/2020. # Hypokalemia: Corrected. monitor. # DM: ISS. Frequent Accu-Cheks. Hypoglycemic precautions. # Hypertension: Continue home meds. Monitor and titrate # Hypothyroidism: resume Synthroid. # CKD: Monitor. Avoid nephrotoxins. # Chronic anemia: possible lower GI bleed, see above. # MDD: continue lexparo # DVT prophylaxis: SCDs only A Briana Hospitalist Nataliia PERSAUD, I+O VSNataliia I+O Laboratory Tests 02/01/20 05:09 Vital Signs Date Time Temp Pulse Resp B/P (MAP) Pulse Ox O2 Delivery O2 Flow Rate FiO2 02/01/20 08:00 97.9 78 16 127/57 (80) 98 Room Air I&O- Last 24 Hours up to 6 AM 02/01/20 06:00 Intake Total 690 ml Output Total 0 ml Balance 690 ml KEZIA PAUL MD Feb 01, 2020 08:47
[2020-02-01] MEDS ORDERED: LACTULOSE 20 GM/30 ML SYRUP UD PO ONE ×2 (11:00→16:00)
[2020-02-01] MEDS ORDERED: MAGNESIUM CITRATE 300 ML BTL PO ONE ×2 (11:00→18:30)
[2020-02-01] MEDS ORDERED: BISACODYL 5 MG TAB PO ONE ×2 (11:00→16:00)
[2020-02-01] MEDS ORDERED: BISACODYL 10 MG SUPP PR ONE (11:00)
[2020-02-01] MEDS: DOCUSATE SODIUM 100MG CAPSULE PO SCH ×2 (11:01→21:28)
[2020-02-01] MEDS: lisinopriL 10 MG TAB PO SCH (11:02)
[2020-02-01] MEDS: ESCITALOPRAM OXALATE 10 MG TAB (LEXAPRO) PO SCH (11:02)
[2020-02-01] MEDS: DIGOXIN 0.125 MG TAB PO SCH (11:03)
[2020-02-01] MEDS: METOPROLOL TART 25 MG TABLET PO SCH ×2 (11:03→21:28)
[2020-02-01 12:00] VITALS: BP 135/68
[2020-02-01] MEDS: MIRALAX *UNIT DOSE* 17GM PACKET PO SCH (15:35)
[2020-02-01 16:00] VITALS: BP 141/83
[2020-02-01 20:00] VITALS: BP 142/68
[2020-02-01] MEDS: ATORVASTATIN 20 MG TAB PO SCH (21:28)
[2020-02-01] MEDS: LATANOPROST 0.005% OPHTH SOLN 2.5 ML OU SCH (21:28)
[2020-02-02] VITALS: BP 147/70
[2020-02-02 04:00] VITALS: BP 144/77
[2020-02-02 05:00] LABS: HEMATOCRIT 32.4 % (36.0-47.0); MEAN CORPUSCULAR HGB CONC 30.9 g/dl (32.0-36.5); MEAN CORPUSCULAR VOLUME 87.3 fl (80.0-96.0); PLATELET COUNT, AUTOMATED 208 10^3/uL (150-450); RED BLOOD COUNT 3.71 10^6/uL (4.00-5.40); WHITE BLOOD COUNT 6.6 10^3/uL (4.0-10.0)
[2020-02-02] MEDS ORDERED: MAGNESIUM CITRATE 300 ML BTL PO ONE (05:00)
[2020-02-02 05:18] LABS: CALCIUM LEVEL 8.3 MG/DL (8.8-10.2); CREATININE FOR GFR 1.02 MG/DL (0.55-1.30); POTASSIUM SERUM 3.5 MEQ/L (3.5-5.1)
[2020-02-02] MEDS: LEVOTHYROXINE 100MCG TABLET (0.1MG) PO SCH (06:13)
[2020-02-02] MEDS: HumaLOG INSULIN (NovoLOG) PER UNIT SC SCH ×4 (07:30→21:01)
[2020-02-02 08:00] VITALS: BP 148/70
--- NOTE | 2020-02-02 08:01 | IPNPDOC ---
Text Note Date of Service The patient was seen on 02/02/20. NOTE Subjective: Patient seen and examined this morning at bedside. Unfortunately over the past several days obtaining adequate bowel prep for this patient has been very difficult. She endorses drinking MiraLAX however and that not drinking MiraLAX. We've been offered the patient an orogastric tube to help her bypass having to swallow and drink either MiraLAX or GoLYTELY. She has been able to tolerate some prep such as magnesium citrate and lactulose. Last evening the scopes were delayed again as she was still having stools. She finally had some loose stools in the evening but there were not clear yet. The plan is for her today to get her scopes this afternoon and then resume a diet afterwards. She will receive a Fleet enema prior to going for the colonoscopy. Patient tells me she is a little frustrated regarding the bowel prep involved and she just does not like the t aste of the prep medications. She tells me she feels well overall with no complaints other than being hungry. There is no acute overnight events. Objective: Constitutional: Awake, alert, in no apparent distress ENT: Sclera are clear. Mucosa is moist. Respiratory: Lungs CTA bilaterally. No respiratory distress. No use of accessory muscles. Cardiovascular: Irregular heart rate, no JVD Gastrointestinal: Abdomen is soft, non distended, non tender, BS present. Musculoskeletal: No edema. Mental Status: normal affect Skin: Warm, dry Assessment/plan: 85F resident of [facility] PMx of IDDM, HTN, Hypothyroidism, CKD, anemia who was about to undergo outpatient colonoscopy when she was found to have asymptomatic tachycardia, EKG showed A fib with RVR. Patients potassium found to be 2.9. Patient admitted to medical service for management of A fib with RVR suspected to be due to electrolyte imbalance. Patient achieved better heart rate control with beta newton and will be able to proceed to get colonoscopy which revealed polyp which was removed and biopsied. Anticoagulation after colonoscopy. ALC can go to NH per PFS. # A Fib with RVR: Rate controlled with metoprolol and digoxin. Anticoagulation with Xarelto after colonoscopy with Xarelto. # Suspected LGIB: FOBT +. GI consulted Dr Heck. Colonoscopy was unsuccessful initially on 01/29/2020 due to poor prep. Plan for barium enema 1 04/01/2019 was unsuccessful due to incontinence patient unable to hold the contrast and air and so study with failure be on transverse colon. Discussed this with Dr. Alonzo given the patient is currently in A. fib and will require anticoagulation in the context of a suspected GI bleed we'll attempt to do the colonoscopy and EGD once again. Bowel prep followed by EGD/colonoscopy on 02/02/2020 showing polyp which was removed and sent for pathology. Per GI patient never needs colonoscopy again given her age. Tomorrow she'll be started on xarelto 20mg daily for A fib anticoagulation. # Hypokalemia: Corrected. monitor. # DM: ISS. Frequent Accu-Cheks. Hypoglycemic precautions. # Hypertension: Continue home meds. Monitor and titrate # Hypothyroidism: resume Synthroid. # CKD: Monitor. Avoid nephrotoxins. # Chronic anemia: possible lower GI bleed, see above. # MDD: continue lexparo # DVT prophylaxis: SCDs only A Briana Hospitalist VSNataliia, I+O VS, Nataliia, I+O Laboratory Tests 02/02/20 04:45 Vital Signs Date Time Temp Pulse Resp B/P (MAP) Pulse Ox O2 Delivery O2 Flow Rate FiO2 02/02/20 04:00 98.7 77 18 144/77 (99) 98 Room Air I&O- Last 24 Hours up to 6 AM 02/02/20 06:00 Intake Total 650 ml Output Total 0 ml Balance 650 ml KEZIA PAUL MD Feb 02, 2020 08:01
[2020-02-02] MEDS: METOPROLOL TART 25 MG TABLET PO SCH ×2 (09:00→20:52)
[2020-02-02] MEDS: MIRALAX *UNIT DOSE* 17GM PACKET PO SCH (09:00)
[2020-02-02] MEDS: DOCUSATE SODIUM 100MG CAPSULE PO SCH ×2 (09:00→20:46)
[2020-02-02] MEDS ORDERED: FLEET ENEMA PR ONE (10:00)
[2020-02-02 12:00] VITALS: BP 131/63
[2020-02-02] MEDS ORDERED: dexameTHASONE 4 MG/ML 1ML VIAL (J1100 PER 1MG) As Ordered ONE (13:44)
[2020-02-02] MEDS ORDERED: LIDOCAINE 2% 100MG/5ML SDV (FOR ANES.) As Ordered ONE (13:44)
[2020-02-02] MEDS ORDERED: fentaNYL 100 MCG/2 ML INJECTION (J3010) As Ordered ONE (13:44)
[2020-02-02] MEDS ORDERED: propofoL 200 MG/20 ML VIAL As Ordered ONE ×2 (13:44→16:05)
[2020-02-02] MEDS ORDERED: ONDANSETRON 4MG/2ML VIAL As Ordered ONE (13:45)
[2020-02-02] MEDS ORDERED: ROCURONIUM BROMIDE 50 MG/5 ML VIAL As Ordered ONE (13:45)
[2020-02-02] MEDS ORDERED: ACETAMINOPHEN 1000MG 100ML IV BTL (OFIRMEV) (J0131 PER 10MG) As Ordered ONE (13:52)
[2020-02-02] MEDS ORDERED: KETOROLAC 60MG 2ML VIAL As Ordered ONE (13:54)
[2020-02-02] MEDS ORDERED: HYDROmorphone HCL 2 MG/ML 1ML VIAL (J1170) As Ordered ONE (13:55)
[2020-02-02] MEDS ORDERED: METOCLOPRAMIDE INJ 10MG/2ML VIAL (J2765 PER 1) As Ordered ONE (14:13)
[2020-02-02] MEDS ORDERED: PHENYLephrine HCL 500 MCG/5 ML (100MCG/ML) SYRINGE (J2370) As Ordered ONE (16:06)
[2020-02-02] MEDS ORDERED: fentaNYL 100 MCG/2 ML INJECTION (J3010) IV PRN (17:00)
[2020-02-02] MEDS ORDERED: LR 1,000 ML IV SCH (17:00)
--- NOTE | 2020-02-02 17:06 | ROOR ---
Patient Name: Juju Lassiter Procedure Date: 02/02/2020 3:05 PM Date of : 1935 Age: 85 Room: Main OR Gender: Female Note Status: Finalized Procedure: Upper GI endoscopy Indications: Iron deficiency anemia Providers: Tommy Heck MD Referring MD: RADHA BARBOZA JR, MD Requesting Provider: Aiden Warren Md Medicines: Monitored Anesthesia Care Complications: No immediate complications. Procedure: Pre-Anesthesia Assessment: - Prior to the procedure, a History and Physical was performed, and patient medications and allergies were reviewed. The patient is competent. The risks and benefits of the procedure and the sedation options and risks were discussed with the patient. All questions were answered and informed consent was obtained. Patient identification and proposed procedure were verified by the physician, the nurse and the anesthesiologist in the procedure room. Mental Status Examination: alert and oriented. Airway Examination: normal oropharyngeal airway and neck mobility. Respiratory Examination: clear to auscultation. CV Examination: normal. Prophylactic Antibiotics: The patient does not require prophylactic antibiotics. Prior Anticoagulants: The patient has taken no previous anticoagulant or antiplatelet agents. ASA Grade Assessment: II - A patient with mild systemic disease. After reviewing the risks and benefits, the patient was deemed in satisfactory condition to undergo the procedure. The anesthesia plan was to use monitored anesthesia care (MAC). Immediately prior to administration of medications, the patient was re-assessed for adequacy to receive sedatives. The heart rate, respiratory rate, oxygen saturations, blood pressure, adequacy of pulmonary ventilation, and response to care were monitored throughout the procedure. The physical status of the patient was re-assessed after the procedure. The Endoscope was introduced through the mouth, and advanced to the second part of duodenum. The upper GI endoscopy was accomplished without difficulty. The patient tolerated the procedure well. Findings: The examined esophagus was normal. Diffuse minimal inflammation characterized by erythema and granularity was found in the gastric antrum. The duodenal bulb and second portion of the duodenum were normal. Impression: - Normal esophagus. - Gastritis. - Normal duodenal bulb and second portion of the duodenum. - No specimens collected. Recommendation: - Patient has a contact number available for emergencies. The signs and symptoms of potential delayed complications were discussed with the patient. Return to normal activities tomorrow. Written discharge instructions were provided to the patient. - Chopped diet and high fiber diet. - Return patient to [facility] for ongoing care. - Use Pepcid (famotidine) 20 mg PO BID for 6 weeks. - Follow the recommendations as per the other procedure note. - Return to primary care physician. Procedure Code(s): --- Professional --- 27778, Esophagogastroduodenoscopy, flexible, transoral; diagnostic, including collection of specimen(s) by brushing or washing, when performed (separate procedure) Diagnosis Code(s): --- Professional --- K29.70, Gastritis, unspecified, without bleeding D50.9, Iron deficiency anemia, unspecified CPT copyright 2019 [employer]. All rights reserved. The codes documented in this report are preliminary and upon grants specialist review may be revised to meet current compliance requirements. Attending Participation: I personally performed the entire procedure. Tommy Heck MD Tommy Heck MD 02/02/2020 5:05:59 PM Electronically signed by Tommy Heck MD Number of Addenda: 0 Note Initiated On: 02/02/2020 3:05 PM Estimated Blood Loss: Estimated blood loss: none.
--- NOTE | 2020-02-02 17:14 | ROOR ---
Patient Name: Juju Lassiter Procedure Date: 02/02/2020 3:07 PM Date of : 1935 Age: 85 Room: Main OR Gender: Female Note Status: Finalized Procedure: Colonoscopy Indications: Heme positive stool, Iron deficiency anemia Providers: Tommy Heck MD Referring MD: RADHA BARBOZA JR, MD Requesting Provider: Medicines: Monitored Anesthesia Care Complications: No immediate complications. Procedure: Pre-Anesthesia Assessment: - Prior to the procedure, a History and Physical was performed, and patient medications and allergies were reviewed. The patient is competent. The risks and benefits of the procedure and the sedation options and risks were discussed with the patient. All questions were answered and informed consent was obtained. Patient identification and proposed procedure were verified by the physician, the nurse and the anesthesiologist in the procedure room. Mental Status Examination: alert and oriented. Airway Examination: normal oropharyngeal airway and neck mobility. Respiratory Examination: clear to auscultation. CV Examination: normal. Prophylactic Antibiotics: The patient does not require prophylactic antibiotics. Prior Anticoagulants: The patient has taken no previous anticoagulant or antiplatelet agents. ASA Grade Assessment: III - A patient with severe systemic disease. After reviewing the risks and benefits, the patient was deemed in satisfactory condition to undergo the procedure. The anesthesia plan was to use monitored anesthesia care (MAC). Immediately prior to administration of medications, the patient was re-assessed for adequacy to receive sedatives. The heart rate, respiratory rate, oxygen saturations, blood pressure, adequacy of pulmonary ventilation, and response to care were monitored throughout the procedure. The physical status of the patient was re-assessed after the procedure. The Colonoscope was introduced through the anus and advanced to the terminal ileum, with identification of the appendiceal orifice and IC valve. The colonoscopy was performed without difficulty. The patient tolerated the procedure well. The quality of the bowel preparation was fair. The terminal ileum, ileocecal valve, appendiceal orifice, and rectum were photographed. Scope insertion time was 5 minutes. Scope withdrawal time was 10 minutes. The total duration of the procedure was 16 minutes. Findings: The perianal and digital rectal examinations were normal. The terminal ileum appeared normal. A 10 mm polyp was found in the ascending colon. The polyp was sessile. The polyp was removed with a cold snare. Resection and retrieval were complete. Verification of patient identification for the specimen was done by the physician and nurse using the patient's name, date and medical record number. Estimated blood loss was minimal. To close a defect after polypectomy, one hemostatic clip was successfully placed. There was no bleeding at the end of the procedure. Non-bleeding external and internal hemorrhoids were found during retroflexion. The hemorrhoids were medium-sized. Impression: - Preparation of the colon was fair. - The examined portion of the ileum was normal. - One 10 mm polyp in the ascending colon, removed with a cold snare. Resected and retrieved. Clip was placed. - Non-bleeding external and internal hemorrhoids. Recommendation: - Patient has a contact number available for emergencies. The signs and symptoms of potential delayed complications were discussed with the patient. Return to normal activities tomorrow. Written discharge instructions were provided to the patient. - High fiber diet. - Continue present medications. - Await pathology results. - Repeat colonoscopy is not recommended due to current age (66 years or older) for surveillance based on pathology results and depending on clinical and functional status. - Return to primary care physician. Procedure Code(s): --- Professional --- 15017, Colonoscopy, flexible; with removal of tumor(s), polyp(s), or other lesion(s) by snare technique Diagnosis Code(s): --- Professional --- K64.8, Other hemorrhoids K63.5, Polyp of colon R19.5, Other fecal abnormalities D50.9, Iron deficiency anemia, unspecified CPT copyright 2019 [employer]. All rights reserved. The codes documented in this report are preliminary and upon laboratory assistant review may be revised to meet current compliance requirements. Attending Participation: I personally performed the entire procedure. Tommy Heck MD Tommy Heck MD 02/02/2020 5:14:00 PM Electronically signed by Tommy Heck MD Number of Addenda: 0 Note Initiated On: 02/02/2020 3:07 PM Estimated Blood Loss: Estimated blood loss was minimal.
[2020-02-02 18:00] VITALS: BP 138/67
[2020-02-02] MEDS: lisinopriL 10 MG TAB PO SCH (18:33)
[2020-02-02] MEDS: ESCITALOPRAM OXALATE 10 MG TAB (LEXAPRO) PO SCH (18:33)
[2020-02-02] MEDS: DIGOXIN 0.125 MG TAB PO SCH (18:34)
[2020-02-02 20:00] VITALS: BP 143/73
[2020-02-02] MEDS: ATORVASTATIN 20 MG TAB PO SCH (20:52)
[2020-02-02] MEDS: LATANOPROST 0.005% OPHTH SOLN 2.5 ML OU SCH (20:58)
[2020-02-03] VITALS: BP 144/82
[2020-02-03] MEDS: LEVOTHYROXINE 100MCG TABLET (0.1MG) PO SCH (05:47)
[2020-02-03 05:56] LABS: HEMATOCRIT 33.4 % (36.0-47.0); HEMOGLOBIN 10.6 g/dl (12.0-15.5); MEAN CORPUSCULAR HEMOGLOBIN 27.9 pg (27.0-33.0); MEAN CORPUSCULAR HGB CONC 31.7 g/dl (32.0-36.5); MEAN CORPUSCULAR VOLUME 87.9 fl (80.0-96.0); PLATELET COUNT, AUTOMATED 202 10^3/uL (150-450); WHITE BLOOD COUNT 4.4 10^3/uL (4.0-10.0)
[2020-02-03 06:26] LABS: CALCIUM LEVEL 8.5 MG/DL (8.8-10.2); CREATININE FOR GFR 1.17 MG/DL (0.55-1.30); GLOMERULAR FILTRATION RATE 46.9 (>32); POTASSIUM SERUM 4.8 MEQ/L (3.5-5.1)
[2020-02-03 08:00] VITALS: BP 135/77
[2020-02-03] MEDS: MIRALAX *UNIT DOSE* 17GM PACKET PO SCH (09:00)
[2020-02-03] MEDS: ESCITALOPRAM OXALATE 10 MG TAB (LEXAPRO) PO SCH (09:34)
[2020-02-03] MEDS: HumaLOG INSULIN (NovoLOG) PER UNIT SC SCH ×2 (09:34→12:17)
[2020-02-03 09:35] VITALS: BP 135/77
[2020-02-03] MEDS: DOCUSATE SODIUM 100MG CAPSULE PO SCH (09:35)
[2020-02-03] MEDS: DIGOXIN 0.125 MG TAB PO SCH (09:35)
[2020-02-03] MEDS: METOPROLOL TART 25 MG TABLET PO SCH (09:35)
[2020-02-03] MEDS: lisinopriL 10 MG TAB PO SCH (09:35)
[2020-02-03] MEDS ORDERED: METO1TAB87 PO (10:44)
[2020-02-03] MEDS ORDERED: XARE20TA PO (10:44)
[2020-02-03] MEDS ORDERED: FAMO20TA PO (10:44)
[2020-02-03] MEDS ORDERED: DIGO0.123 PO (10:44)
--- NOTE | 2020-02-03 10:59 | DS.PDOC ---
Discharge Summary General Date of Admission Jan 28, 2020 at 11:25 Date of Discharge 02/03/2020 Discharge Summary PROCEDURES PERFORMED DURING STAY: EGD and colonoscopy ADMITTING DIAGNOSES: 1. New onset A. fib with RVR 2. Lower GI bleed DISCHARGE DIAGNOSES: 1. New onset A. fib with RVR 2. Iron deficiency anemia secondary to Lower GI bleed status post polyp removal COMPLICATIONS/CHIEF COMPLAINT: Iron Deficiency Anemia. HISTORY OF PRESENT ILLNESS: . HOSPITAL COURSE: 85[facility], HTN, Hypothyroidism, CKD, anemia who was about to undergo outpatient colonoscopy when she was found to have asymptomatic tachycardia, EKG showed A fib with RVR. Patients potassium found to be 2.9. Patient admitted to medical service for management of A fib with RVR suspected to be due to electrolyte imbalance. Patient achieved better heart rate control with beta newton and will be able to proceed to get colonoscopy which revealed polyp which was removed and biopsied. Anticoagulation after colonoscopy. # A Fib with RVR: Rate controlled with metoprolol and digoxin. Anticoagulation with Xarelto after colonoscopy. Recommended follow-up with primary care doctor and cardiology for new onset A. fib after discharge. # Iron deficiency anemia secondary to GI bleed: FOBT +. GI consulted Dr Radha gonzalez. Colonoscopy was unsuccessful initially on 01/29/2020 due to poor prep. EGD/colonoscopy on 02/02/2020 showing polyp which was removed and sent for pathology. Follow-up with primary care physician for pathology results. EGD showing gastritis recommending famotidine 20 twice a day for 6 weeks.Started on xarelto 20mg daily for A fib anticoagulation. # Hypokalemia: Corrected. monitor. # DM: ISS. Frequent Accu-Cheks. Hypoglycemic precautions. # Hypertension: Continue home meds. Monitor and titrate # Hypothyroidism: resume Synthroid. # CKD: Monitor. Avoid nephrotoxins. # MDD: continue lexparo DISCHARGE MEDICATIONS: Please see below. ALLERGIES: Please see below. PHYSICAL EXAMINATION ON DISCHARGE: VITAL SIGNS: Please see below. Constitutional: Awake, alert, in no apparent distress ENT: Sclera are clear. Mucosa is moist. Respiratory: Lungs CTA bilaterally. No respiratory distress. No use of accessory muscles. Cardiovascular: Irregular heart rate, no JVD Gastrointestinal: Abdomen is soft, non distended, non tender, BS present. Musculoskeletal: No edema. Mental Status: normal affect Skin: Warm, dry LABORATORY DATA: Please see below. IMAGING: None PROGNOSIS: Fair ACTIVITY: [As tolerated]. DIET: Regular diet DISPOSITION: [facility] DISCHARGE INSTRUCTIONS: Please follow up with your primary care physician within 1 week from discharge. If you do not have one, please follow up with us to schedule an appointment. Please keep all of your follow up appointments. Please call central to book your appointments with hospital specialists. Please take all your medications as prescribed. Please call/come to Clinic or go to the Emergency Department if - Temp >101, intractable Nausea/Vomiting, Diarrhea, Mouth sores, Headaches, Altered mental status, Seizures, sudden onset of swelling, bleeding, shortness of breath or chest pain. ITEMS TO FOLLOWUP ON ON OUTPATIENT: Follow-up with primary care doctor and international logistics analyst DISCHARGE CONDITION: [Stable]. TIME SPENT ON DISCHARGE: Greater than 35 minutes. Vital Signs/I&Os Vital Signs Date Time Temp Pulse Resp B/P (MAP) Pulse Ox O2 Delivery O2 Flow Rate FiO2 02/03/20 09:35 94 02/03/20 09:35 135/77 02/03/20 08:00 97.4 20 96 Room Air 02/02/20 17:05 10 I&O- Last 24 Hours up to 6 AM 02/03/20 06:00 Intake Total 1430 ml Output Total 0 ml Balance 1430 ml Laboratory Data Labs 24H Laboratory Tests 2 02/02/20 13:59: Bedside Glucose (Misc Panel) 164H 02/02/20 18:36: Bedside Glucose (Misc Panel) 234H 02/02/20 20:10: Bedside Glucose (Misc Panel) 285H 02/03/20 05:27: Nucleated Red Blood Cells % (auto) 0.0, Anion Gap 7L, Glomerular Filtration Rate 46.9, Calcium Level 8.5L CBC/BMP Laboratory Tests 02/03/20 05:27 FSBS Laboratory Tests Test 02/02/20 13:59 02/02/20 18:36 02/02/20 20:10 Range/Units Bedside Glucose (Misc Panel) 164 234 285 83-110 MG/DL Discharge Medications Scheduled Acetaminophen (Acetaminophen) 500 Mg Tablet, 1,000 MG PO BID, (Reported) Ascorbic Acid (Ascorbic Acid) 500 Mg Tablet, 500 MG PO DAILY, (Reported) Atorvastatin Calcium (Atorvastatin Calcium) 20 Mg Tablet, 20 MG PO QHS, (Reported) Cyclosporine (Restasis) 0.05 % Emu, 1 DROP OU BID, (Reported) Digoxin (Digoxin) 125 Mcg Tablet, 0.125 MG PO DAILY Docusate Sodium (Colace) 100 Mg Capsule, 200 MG PO DAILY, (Reported) Dulaglutide (Trulicity) 1.5 Mg/0.5 Ml Pen.injctr, 1.5 MG SQ QWEEK, (Reported) FRIDAYS Escitalopram Oxalate (Escitalopram Oxalate) 20 Mg Tablet, 20 MG PO DAILY, (Reported) Famotidine (Famotidine) 20 Mg Tablet, 20 MG PO BID Ferrous Gluconate (Ferrous Gluconate) 324 Mg Tablet, 324 MG PO DAILY, (Reported) Insulin Degludec (Tresiba) 100 Unit/1 Ml Vial, 44 UNIT SC QHS, (Reported) Latanoprost (Xalatan) 0.005% 2.5ML Drops, 1 DROP OU QHS, (Reported) Levothyroxine Sodium (Levothyroxine Sodium) 100 Mcg Tab, 100 MCG PO DAILY, (R eported) Linagliptin (Tradjenta) 5 Mg Tablet, 5 MG PO DAILY, (Reported) Lisinopril (Lisinopril) 10 Mg Tablet, 10 MG PO DAILY, (Reported) Metformin HCl (Metformin HCl ER) 500 Mg Tab, 1,000 MG PO DAILY, (Reported) Metoprolol Tartrate (Metoprolol Tartrate) 25 Mg Tablet, 25 MG PO BID Multivitamins (Thera M Plus Tablet) 1 Each Tablet, 1 TAB PO DAILY, (Reported) Rivaroxaban (Xarelto) 20 Mg Tablet, 20 MG PO DAILY@18 Sennosides/Docusate Sodium (Senna-S Tablet) 1 Each Tablet, 2 TAB PO QHS, (Reported) Timolol Maleate (Timolol Maleate) 0.5% 5ML Drop.daily, 1 DROP OU DAILY, (Reported) Scheduled PRN Bisacodyl (Dulcolax) 10 Mg Supp.rect, 10 MG FL DAILY PRN for CONSTIPATION, (Reported) Milk Of Magnesia (Milk of Magnesia) 2,400 Mg/10 Ml Oral.susp, 10 ML PO DAILY PRN for CONSTIPATION, (Reported) Sodium Phosphate,[place]-Dibasic (Enema) 133 Ml Enema, 1 RATNA FL DAILY PRN for CONS TIPATION, (Reported) Allergies Coded Allergies: brimonidine (Verified Allergy, Unknown, 01/20/20) dorzolamide (Verified Allergy, Unknown, 01/20/20) KEZIA PAUL MD Feb 03, 2020 10:59
[2020-02-03] MEDS ORDERED: RIVAROXABAN 20 MG TAB (XARELTO) PO SCH (18:00)
== END 2020-02-03 13:35 | DRG 641 ==
LOC: M OPP 07:08 → M ED INP 11:25 → M PCU 15:32
PROVIDERS: ADMIT Family Medicine; ATTEND Family Medicine
PROC: 0DBK8ZX Excision of Ascending Colon, Via Natural or Artificial Opening Endoscopic, Diagnostic (ICD-10-PCS; 2020-02-02)
PROC: 0DJ08ZZ Inspection of Upper Intestinal Tract, Via Natural or Artificial Opening Endoscopic (ICD-10-PCS; principal; 2020-02-02 13:00)
DX: E87.6 Hypokalemia (principal); K92.2 Gastrointestinal hemorrhage, unspecified; I48.91 Unspecified atrial fibrillation; E11.9 Type 2 diabetes mellitus without complications; N18.9 Chronic kidney disease, unspecified; F32.9 Major depressive disorder, single episode, unspecified; K29.70 Gastritis, unspecified, without bleeding; D50.0 Iron deficiency anemia secondary to blood loss (chronic); E03.9 Hypothyroidism, unspecified; Z79.899 Other long term (current) drug therapy; Z88.8 Allergy status to other drugs, medicaments and biological substances; Z79.4 Long term (current) use of insulin; Z91.14 Patient's other noncompliance with medication regimen; K63.5 Polyp of colon; K64.8 Other hemorrhoids

== ENCOUNTER → 2020-01-29 | Outpatient (REF) | payer MEDICARE ==
[~2020-01-29] MED LIST changes: +ASCO500T PO; +DIGO0.123 PO; +DULC10SU2 PR; +ENEMENE PR; +ESCI20TA PO; +FAMO20TA PO; +FERR32TA PO; +LISI10TA4 PO; +METO1TAB87 PO; +MOM30SS PO; -NS 1,000 ML IV ONE; +SENN1TAB41 PO; +XARE20TA PO
--- NOTE | 2020-01-29 15:29 | ROOR ---
Patient Name: Juju Lassiter Procedure Date: 01/29/2020 2:48 PM Date of : 1935 Age: 85 Room: [facility] Gender: Female Note Status: Finalized Procedure: Colonoscopy Indications: Gastrointestinal occult blood loss, Iron deficiency anemia Providers: Tommy Heck MD Referring MD: 2. Inpatient 2. Inpatient Requesting Provider: Medicines: Monitored Anesthesia Care Complications: No immediate complications. Procedure: Pre-Anesthesia Assessment: - Prior to the procedure, a History and Physical was performed, and patient medications and allergies were reviewed. The patient is competent. The risks and benefits of the procedure and the sedation options and risks were discussed with the patient. All questions were answered and informed consent was obtained. Patient identification and proposed procedure were verified by the physician, the nurse and the anesthesiologist in the procedure room. Mental Status Examination: alert and oriented. Airway Examination: normal oropharyngeal airway and neck mobility. Respiratory Examination: clear to auscultation. CV Examination: normal. Prophylactic Antibiotics: The patient does not require prophylactic antibiotics. Prior Anticoagulants: The patient has taken no previous anticoagulant or antiplatelet agents. ASA Grade Assessment: III - A patient with severe systemic disease. After reviewing the risks and benefits, the patient was deemed in satisfactory condition to undergo the procedure. The anesthesia plan was to use monitored anesthesia care (MAC). Immediately prior to administration of medications, the patient was re-assessed for adequacy to receive sedatives. The heart rate, respiratory rate, oxygen saturations, blood pressure, adequacy of pulmonary ventilation, and response to care were monitored throughout the procedure. The physical status of the patient was re-assessed after the procedure. The Colonoscope was introduced through the anus with the intention of advancing to the cecum. The scope was advanced to the ascending colon before the procedure was aborted. Medications were given. The colonoscopy was performed without difficulty. The patient tolerated the procedure well. The quality of the bowel preparation was poor. The rectum was photographed. Scope insertion time was 3 minutes. Scope withdrawal time was 6 minutes. The total duration of the procedure was 10 minutes. Findings: The perianal and digital rectal examinations were normal. A large amount of semi-solid solid stool was found from rectum to ascending colon, precluding visualization. Lavage of the area was performed using a large amount of sterile water, resulting in incomplete clearance with continued poor visualization. Multiple small and large-mouthed diverticula were found from sigmoid to descending colon. There was no evidence of diverticular bleeding. Impression: - Preparation of the colon was poor. - Stool from rectum to ascending colon. - Moderate diverticulosis from sigmoid to descending colon. There was no evidence of diverticular bleeding. - No specimens collected. Recommendation: - Patient has a contact number available for emergencies. The signs and symptoms of potential delayed complications were discussed with the patient. Return to normal activities tomorrow. Written discharge instructions were provided to the patient. - Clear liquid diet. - Continue present medications. - Perform an air contrast barium enema at the next available appointment. - Repeat colonoscopy is not recommended at this time as patient is unable to do bowel preparation after multiple attempts. - Return to primary care physician. Procedure Code(s): --- Professional --- 23135, 53, Colonoscopy, flexible; diagnostic, including collection of specimen(s) by brushing or washing, when performed (separate procedure) Diagnosis Code(s): --- Professional --- R19.5, Other fecal abnormalities D50.9, Iron deficiency anemia, unspecified K57.30, Diverticulosis of large intestine without perforation or abscess without bleeding CPT copyright 2019 [employer]. All rights reserved. The codes documented in this report are preliminary and upon senior client advisor review may be revised to meet current compliance requirements. Tommy Heck MD Tommy Heck MD 01/29/2020 3:29:14 PM Electronically signed by Tommy Heck MD Number of Addenda: 0 Note Initiated On: 01/29/2020 2:48 PM Estimated Blood Loss: Estimated blood loss was minimal.
== END ==
LOC: SKLAB4 08:09
PROVIDERS: ATTEND Internal Medicine
DX: Z20.828 Contact with and (suspected) exposure to other viral communicable diseases (principal)

== ENCOUNTER → 2020-02-04 | Outpatient (REF) | payer MEDICARE ==
[2020-02-04 11:29] LABS: HEMATOCRIT 29.8 % (36.0-47.0); HEMOGLOBIN 9.5 g/dl (12.0-15.5); MEAN CORPUSCULAR HEMOGLOBIN 27.8 pg (27.0-33.0); MEAN CORPUSCULAR HGB CONC 31.9 g/dl (32.0-36.5); MEAN CORPUSCULAR VOLUME 87.1 fl (80.0-96.0); PLATELET COUNT, AUTOMATED 199 10^3/uL (150-450); RED BLOOD COUNT 3.42 10^6/uL (4.00-5.40); WHITE BLOOD COUNT 6.6 10^3/uL (4.0-10.0)
== END ==
LOC: SKLAB4 10:46
PROVIDERS: ATTEND Internal Medicine
DX: D64.9 Anemia, unspecified (principal)

== ENCOUNTER → 2020-02-05 | Outpatient (REF) | payer MEDICARE, MEDICAID | LOC: SKLAB4 06:18 | PROVIDERS: ATTEND Internal Medicine | DX: Z20.828 Contact with and (suspected) exposure to other viral communicable diseases (principal) ==

== ENCOUNTER → 2020-02-12 | Outpatient (REF) | payer MEDICARE, MEDICAID | LOC: SKLAB4 05:59 | PROVIDERS: ATTEND Internal Medicine | DX: Z20.828 Contact with and (suspected) exposure to other viral communicable diseases (principal) ==

== ENCOUNTER → 2020-02-19 | Outpatient (REF) | payer MEDICARE, MEDICAID | LOC: SKLAB4 06:35 | PROVIDERS: ATTEND Internal Medicine | DX: Z20.828 Contact with and (suspected) exposure to other viral communicable diseases (principal) ==

== ENCOUNTER → 2020-02-25 | Outpatient (REF) | payer MEDICARE, MEDICAID ==
[~2020-02-25] MED LIST changes: -ESCI20TA; -ESCI20TA PO; +ESCI20TA16; +ESCI20TA16 PO
[2020-02-25 13:16] LABS: APPEARANCE, URINE TURBID (CLEAR); BACTERIA, URINE AUTO 3+ (NEGATIVE); BILIRUBIN, URINE AUTO NEGATIVE (NEGATIVE); BLOOD, URINE BLOOD NEGATIVE (NEGATIVE); COLOR, URINE AMBER (YELLOW); GLUCOSE, URINE (UA) AUTO 2+ mg/dL (NEGATIVE); KETONE, URINE AUTO NEGATIVE (NEGATIVE); LEUKOCYTE ESTERASE, URINE AUTO 3+ (NEGATIVE); NITRITE, URINE AUTO POSITIVE (NEGATIVE); PROTEIN, URINE AUTO 2+ mg/dL (NEGATIVE); RBC, URINE AUTO 111 /HPF (0-3); SQUAMOUS EPITHELIAL CELL UR AU 2 /HPF (0-6); UROBILINOGEN, URINE AUTO 0.2 mg/dL (0.0-2.0); WBC, URINE AUTO TNTC /HPF (0-3)
== END ==
LOC: SKLAB4 11:49
PROVIDERS: ATTEND Internal Medicine
DX: R41.0 Disorientation, unspecified (principal)

== ENCOUNTER → 2020-02-26 | Outpatient (REF) | payer MEDICARE, MEDICAID | LOC: SKLAB4 06:13 | PROVIDERS: ATTEND Internal Medicine | DX: Z20.822 Contact with and (suspected) exposure to COVID-19 (principal) ==

== ENCOUNTER → 2020-03-03 | Outpatient (REF) | payer MEDICARE, MEDICAID ==
[~2020-03-03] MED LIST changes: +LISI10TA22 PO; -LISI10TA4 PO
[2020-03-03 10:19] LABS: HEMATOCRIT 30.9 % (36.0-47.0); HEMOGLOBIN 9.5 g/dl (12.0-15.5); MEAN CORPUSCULAR HEMOGLOBIN 27.5 pg (27.0-33.0); MEAN CORPUSCULAR HGB CONC 30.7 g/dl (32.0-36.5); MEAN CORPUSCULAR VOLUME 89.6 fl (80.0-96.0); PLATELET COUNT, AUTOMATED 244 10^3/uL (150-450); RED BLOOD COUNT 3.45 10^6/uL (4.00-5.40); WHITE BLOOD COUNT 6.5 10^3/uL (4.0-10.0)
[2020-03-03 10:45] LABS: CALCIUM LEVEL 8.7 MG/DL (8.8-10.2); CREATININE FOR GFR 1.01 MG/DL (0.55-1.30); GLOMERULAR FILTRATION RATE 55.6 (>32); POTASSIUM SERUM 4.1 MEQ/L (3.5-5.1)
== END ==
LOC: SKLAB4 10:38
PROVIDERS: ATTEND Internal Medicine
DX: N18.9 Chronic kidney disease, unspecified (principal); D63.1 Anemia in chronic kidney disease

== ENCOUNTER → 2020-03-04 | Outpatient (REF) | payer MEDICARE, MEDICAID | LOC: SKLAB4 06:47 | PROVIDERS: ATTEND Internal Medicine | DX: Z20.822 Contact with and (suspected) exposure to COVID-19 (principal) ==

== ENCOUNTER → 2020-03-11 | Outpatient (REF) | payer MEDICARE, MEDICAID | LOC: SKLAB4 06:16 | PROVIDERS: ATTEND Internal Medicine | DX: Z20.822 Contact with and (suspected) exposure to COVID-19 (principal) ==

== ENCOUNTER → 2020-03-18 | Outpatient (REF) | payer MEDICARE, MEDICAID ==
[~2020-03-18] MED LIST changes: -LISI10TA22 PO; +LISI10TA4 PO
== END ==
LOC: SKLAB4 06:52
PROVIDERS: ATTEND Internal Medicine
DX: Z20.822 Contact with and (suspected) exposure to COVID-19 (principal)

== ENCOUNTER → 2020-03-25 | Outpatient (REF) | payer MEDICARE, MEDICAID ==
[~2020-03-25] MED LIST changes: +LISI10TA22 PO; -LISI10TA4 PO
== END ==
LOC: SKLAB4 06:39
PROVIDERS: ATTEND Internal Medicine
DX: Z20.822 Contact with and (suspected) exposure to COVID-19 (principal); E11.649 Type 2 diabetes mellitus with hypoglycemia without coma
CPT/HCPCS: 82947; U0003

== ENCOUNTER → 2020-03-26 | Outpatient (REF) | payer MEDICARE, MEDICAID ==
[2020-03-26 09:47] LABS: HEMOGLOBIN 8.1 g/dl (12.0-15.5); MEAN CORPUSCULAR HEMOGLOBIN 27.9 pg (27.0-33.0); MEAN CORPUSCULAR HGB CONC 31.2 g/dl (32.0-36.5); MEAN CORPUSCULAR VOLUME 89.7 fl (80.0-96.0); PLATELET COUNT, AUTOMATED 161 10^3/uL (150-450); WHITE BLOOD COUNT 5.7 10^3/uL (4.0-10.0)
[2020-03-26 10:18] LABS: BLOOD UREA NITROGEN 24 MG/DL (7-18); CALCIUM LEVEL 8.2 MG/DL (8.8-10.2); CARBON DIOXIDE LEVEL 27 MEQ/L (21-32); CHLORIDE LEVEL 107 MEQ/L (98-107); CHOLESTEROL LEVEL 95 MG/DL (<200); CHOLESTEROL RISK RATIO 2.638 (<5); CREATININE FOR GFR 0.88 MG/DL (0.55-1.30); GLOMERULAR FILTRATION RATE > 60.0 (>32); GLUCOSE, FASTING 175 MG/DL (70-100); HDL CHOLESTEROL 36 MG/DL (>40); LDL CHOLESTEROL 34 MG/DL (<100); NON-HDL-C 59 MG/DL; POTASSIUM SERUM 4.1 MEQ/L (3.5-5.1); SODIUM LEVEL 142 MEQ/L (136-145); TRIGLYCERIDES LEVEL 127 MG/DL (<150)
[2020-03-26 10:19] LABS: IRON (FE) 50 UG/DL (50-170)
== END ==
LOC: SKLAB4 11:57
PROVIDERS: ATTEND Internal Medicine
DX: E78.5 Hyperlipidemia, unspecified (principal); E11.9 Type 2 diabetes mellitus without complications; R53.83 Other fatigue

== ENCOUNTER → 2020-04-01 | Outpatient (REF) | payer MEDICARE, MEDICAID | LOC: SKLAB4 06:04 | PROVIDERS: ATTEND Internal Medicine | DX: Z20.822 Contact with and (suspected) exposure to COVID-19 (principal) ==

== ENCOUNTER → 2020-04-02 | Outpatient (REF) | payer MEDICARE, MEDICAID ==
[2020-04-02 16:14] LABS: PERCENT SATURATION 11.2 % (13.2-45.0)
== END ==
LOC: SKLAB4 11:06
PROVIDERS: ATTEND Internal Medicine
DX: D64.9 Anemia, unspecified (principal)

== ENCOUNTER → 2020-04-02 | Outpatient (REF) | payer MEDICARE, MEDICAID ==
[2020-04-02 09:15] LABS: HEMATOCRIT 25.7 % (36.0-47.0); HEMOGLOBIN 7.9 g/dl (12.0-15.5); MEAN CORPUSCULAR HEMOGLOBIN 27.8 pg (27.0-33.0); MEAN CORPUSCULAR HGB CONC 30.7 g/dl (32.0-36.5); MEAN CORPUSCULAR VOLUME 90.5 fl (80.0-96.0); PLATELET COUNT, AUTOMATED 189 10^3/uL (150-450); RED BLOOD COUNT 2.84 10^6/uL (4.00-5.40); WHITE BLOOD COUNT 6.6 10^3/uL (4.0-10.0)
== END ==
LOC: SKLAB4 11:36
PROVIDERS: ATTEND Internal Medicine
DX: D64.9 Anemia, unspecified (principal)

== ENCOUNTER 2020-04-04 08:50 | Outpatient (CLI) | payer MEDICARE, MEDICAID ==
[~2020-04-04] VITALS: Ht 167.6 cm; Wt 69.0 kg
[2020-04-04] VITALS (11 sets, daily range): BP systolic 107–156; BP diastolic 54–78
[~2020-04-04 08:50] MED LIST changes: +FUROSEMIDE 40MG/4ML VIAL (J1940) IV ONE
[2020-04-04] MEDS ORDERED: FUROSEMIDE 40MG/4ML VIAL (J1940) IV ONE (11:00)
== END 2020-04-04 18:30 ==
LOC: M MSPAV 08:50 → M INFU 08:50
PROVIDERS: ATTEND Nurse Practitioner Adult Health
DX: D64.9 Anemia, unspecified (principal); Z88.8 Allergy status to other drugs, medicaments and biological substances
CPT/HCPCS: 36430; 96374; 96376; J1940; P9016

== ENCOUNTER → 2020-04-06 | Outpatient (REF) | payer MEDICARE, MEDICAID ==
[~2020-04-06] MED LIST changes: -FUROSEMIDE 40MG/4ML VIAL (J1940) IV ONE
[2020-04-06 07:44] LABS: HEMATOCRIT 34.6 % (36.0-47.0); HEMOGLOBIN 10.6 g/dl (12.0-15.5); MEAN CORPUSCULAR HEMOGLOBIN 27.6 pg (27.0-33.0); MEAN CORPUSCULAR HGB CONC 30.6 g/dl (32.0-36.5); MEAN CORPUSCULAR VOLUME 90.1 fl (80.0-96.0); PLATELET COUNT, AUTOMATED 211 10^3/uL (150-450); RED BLOOD COUNT 3.84 10^6/uL (4.00-5.40); WHITE BLOOD COUNT 7.7 10^3/uL (4.0-10.0)
== END ==
LOC: SKLAB4 06:58
PROVIDERS: ATTEND Internal Medicine
DX: D64.9 Anemia, unspecified (principal)

== ENCOUNTER → 2020-04-08 | Outpatient (REF) | payer MEDICARE, MEDICAID | LOC: SKLAB4 06:40 | PROVIDERS: ATTEND Internal Medicine | DX: Z20.822 Contact with and (suspected) exposure to COVID-19 (principal) ==

== ENCOUNTER → 2020-04-22 | Outpatient (REF) | payer MEDICARE, MEDICAID | LOC: SKLAB4 06:48 | PROVIDERS: ATTEND Internal Medicine | DX: Z20.822 Contact with and (suspected) exposure to COVID-19 (principal) ==

== ENCOUNTER → 2020-04-23 | Outpatient (REF) | payer MEDICARE, MEDICAID ==
[2020-04-23 08:48] LABS: HEMATOCRIT 22.7 % (36.0-47.0); MEAN CORPUSCULAR HEMOGLOBIN 29.2 pg (27.0-33.0); MEAN CORPUSCULAR HGB CONC 30.8 g/dl (32.0-36.5); MEAN CORPUSCULAR VOLUME 94.6 fl (80.0-96.0); PLATELET COUNT, AUTOMATED 147 10^3/uL (150-450); WHITE BLOOD COUNT 6.3 10^3/uL (4.0-10.0)
[2020-04-23 09:25] LABS: PERCENT SATURATION 8.8 % (13.2-45.0)
== END ==
LOC: SKLAB4 11:12
PROVIDERS: ATTEND Internal Medicine
DX: D64.9 Anemia, unspecified (principal)

== ENCOUNTER 2020-04-24 12:52 | Outpatient (CLI) | payer MEDICARE, MEDICAID ==
[2020-04-24] VITALS (8 sets, daily range): BP systolic 112–158; BP diastolic 54–76
[~2020-04-24 12:52] MED LIST changes: +FUROSEMIDE 40MG/4ML VIAL (J1940) IV ONE
== END 2020-04-24 18:30 | disposition home or self-care (01) ==
LOC: M INFU 12:52
PROVIDERS: ATTEND Nurse Practitioner Adult Health
DX: D64.9 Anemia, unspecified (principal); Z88.8 Allergy status to other drugs, medicaments and biological substances; I48.91 Unspecified atrial fibrillation
CPT/HCPCS: 36430; 93005; 96374; J1940; P9016

== ENCOUNTER → 2020-04-24 | Outpatient (REF) | payer MEDICARE, MEDICAID ==
--- NOTE | 2020-04-24 13:29 | ECGEPIP ---
[facility] Test Date: 2020-04-24 Pat Name: GENI HOWARD Department: Room: - Gender: Female Cafeteria Table Attendant: Fernanda : 1935 Requested By: ISH FRAZIER Order Number: [id number] Reading MD: Helen Zamorano Measurements Intervals [place] Rate: 67 P: LA: QRS: 49 QRSD: 74 T: 233 QT: 390 QTc: 412 Interpretive Stat[address] Atrial fibrillation ST & T wave abnormality, consider inferolateral ischemia RATE SLOWER ST T ABN NEW C/2 Electronically Signed on 04-24-2020 13:29:24 EST by Helen Zamorano
== END ==
LOC: SKLAB4 11:07
PROVIDERS: ATTEND Internal Medicine
DX: I48.91 Unspecified atrial fibrillation (principal)

== ENCOUNTER → 2020-04-28 | Outpatient (REF) | payer MEDICARE, MEDICAID ==
[~2020-04-28] MED LIST changes: -FUROSEMIDE 40MG/4ML VIAL (J1940) IV ONE
[2020-04-28 08:26] LABS: HEMATOCRIT 26.9 % (36.0-47.0); HEMOGLOBIN 8.5 g/dl (12.0-15.5); MEAN CORPUSCULAR HEMOGLOBIN 28.7 pg (27.0-33.0); MEAN CORPUSCULAR HGB CONC 31.6 g/dl (32.0-36.5); MEAN CORPUSCULAR VOLUME 90.9 fl (80.0-96.0); PLATELET COUNT, AUTOMATED 112 10^3/uL (150-450); RED BLOOD COUNT 2.96 10^6/uL (4.00-5.40); WHITE BLOOD COUNT 6.1 10^3/uL (4.0-10.0)
[2020-04-28 08:57] LABS: PERCENT SATURATION 11.8 % (13.2-45.0)
== END ==
LOC: SKLAB4 10:07
PROVIDERS: ATTEND Internal Medicine
DX: E61.1 Iron deficiency (principal)

== ENCOUNTER → 2020-04-29 | Outpatient (REF) | payer MEDICARE, MEDICAID | LOC: SKLAB4 06:42 | PROVIDERS: ATTEND Internal Medicine | DX: Z20.822 Contact with and (suspected) exposure to COVID-19 (principal) ==

== ENCOUNTER 2020-04-30 08:46 | Outpatient (CLI) | payer MEDICARE, MEDICAID ==
[2020-04-30] MEDS ORDERED: IRON SUCROSE 500 MG in NS 250 ML OVER 4 HRS IV ONE (09:00)
[2020-04-30 09:01] VITALS: BP 144/65
[2020-04-30 10:30] VITALS: BP 141/61
[2020-04-30 13:00] VITALS: BP 158/72
== END 2020-04-30 13:00 | disposition home or self-care (01) ==
LOC: M INFU 08:46
PROVIDERS: ATTEND Nurse Practitioner Adult Health
DX: D50.9 Iron deficiency anemia, unspecified (principal); Z88.8 Allergy status to other drugs, medicaments and biological substances
CPT/HCPCS: 96365; 96366; J1756

== ENCOUNTER → 2020-05-04 | Outpatient (REF) | payer MEDICARE, MEDICAID ==
[2020-05-04 08:05] LABS: HEMATOCRIT 28.3 % (36.0-47.0); HEMOGLOBIN 8.6 g/dl (12.0-15.5); MEAN CORPUSCULAR HEMOGLOBIN 28.2 pg (27.0-33.0); MEAN CORPUSCULAR HGB CONC 30.4 g/dl (32.0-36.5); MEAN CORPUSCULAR VOLUME 92.8 fl (80.0-96.0); PLATELET COUNT, AUTOMATED 112 10^3/uL (150-450); RED BLOOD COUNT 3.05 10^6/uL (4.00-5.40); WHITE BLOOD COUNT 6.5 10^3/uL (4.0-10.0)
== END ==
LOC: SKLAB4 07:14
PROVIDERS: ATTEND Internal Medicine
DX: D64.9 Anemia, unspecified (principal)

== ENCOUNTER → 2020-05-08 | Outpatient (REF) | payer MEDICARE, MEDICAID ==
[2020-05-08 11:45] LABS: HEMOGLOBIN 8.4 g/dl (12.0-15.5); MEAN CORPUSCULAR HEMOGLOBIN 28.8 pg (27.0-33.0); MEAN CORPUSCULAR HGB CONC 31.1 g/dl (32.0-36.5); MEAN CORPUSCULAR VOLUME 92.5 fl (80.0-96.0); PLATELET COUNT, AUTOMATED 112 10^3/uL (150-450); RED BLOOD COUNT 2.92 10^6/uL (4.00-5.40); WHITE BLOOD COUNT 6.5 10^3/uL (4.0-10.0)
[2020-05-08 12:10] LABS: BLOOD UREA NITROGEN 24 MG/DL (7-18); CALCIUM LEVEL 8.2 MG/DL (8.8-10.2); CARBON DIOXIDE LEVEL 25 MEQ/L (21-32); CHLORIDE LEVEL 109 MEQ/L (98-107); GLOMERULAR FILTRATION RATE > 60.0 (>32); GLUCOSE, FASTING 209 MG/DL (70-100); NT-PRO BNP 6170 PG/ML (<450); POTASSIUM SERUM 4.5 MEQ/L (3.5-5.1); SODIUM LEVEL 139 MEQ/L (136-145)
== END ==
LOC: SKLAB4 10:55
PROVIDERS: ATTEND Internal Medicine
DX: R60.9 Edema, unspecified (principal)

== ENCOUNTER → 2020-05-11 | Outpatient (REF) | payer MEDICARE, MEDICAID ==
[2020-05-11 07:32] LABS: BLOOD UREA NITROGEN 20 MG/DL (7-18); CALCIUM LEVEL 8.3 MG/DL (8.8-10.2); CARBON DIOXIDE LEVEL 27 MEQ/L (21-32); CHLORIDE LEVEL 108 MEQ/L (98-107); CREATININE FOR GFR 0.93 MG/DL (0.55-1.30); GLOMERULAR FILTRATION RATE > 60.0 (>32); GLUCOSE, FASTING 237 MG/DL (70-100); NT-PRO BNP 6718 PG/ML (<450); POTASSIUM SERUM 4.2 MEQ/L (3.5-5.1); SODIUM LEVEL 140 MEQ/L (136-145)
== END ==
LOC: SKLAB4 10:36
PROVIDERS: ATTEND Internal Medicine
DX: R60.9 Edema, unspecified (principal)

== ENCOUNTER → 2020-05-13 | Outpatient (REF) | payer MEDICARE, MEDICAID ==
[2020-05-13 09:39] LABS: CALCIUM LEVEL 8.3 MG/DL (8.8-10.2); CREATININE FOR GFR 0.99 MG/DL (0.55-1.30); GLOMERULAR FILTRATION RATE 56.9 (>32); POTASSIUM SERUM 3.7 MEQ/L (3.5-5.1)
--- NOTE | 2020-05-13 12:45 | REP ---
INDICATION: CHF. COMPARISON: 04/06/2019, 08/09/2016 AP CHEST TECHNIQUE: PORTABLE UPRIGHT AP FINDINGS: LUNGS ADEQUATELY INFLATED. THERE IS UNDERLYING FIBROSIS AND SOME ACCENTUATION OF THE RIGHT MINOR FISSURE SUGGESTING FLUID IN THE FISSURE. HEART HAS LEFT VENTRICULAR CONFIGURATION AND LEFT ATRIAL ENLARGEMENT. THE SOME VASCULAR CONGESTION IS NOTED THE UNDERLYING FIBROSIS MAKES EARLY INTERSTITIAL EDEMA DIFFICULT TO EXCLUDE. SMALL EFFUSIONS ARE DIFFICULT TO EXCLUDE WITH SLIGHT COARSENING OF MARKINGS AT THE CP ANGLES. NO DENSE CONSOLIDATION. CALCIFIED AORTIC ARCH WITHOUT ANEURYSM. PROMINENT CENTRAL PULMONARY ARTERIES AT THE HILUM SUGGESTING PULMONARY ARTERY HYPERTENSION THAT IS LIKELY ON THE BASIS OF COPD. DIFFUSE DEGENERATIVE CHANGES IN THE SPINE. IMPRESSION: 1. FINDINGS SUGGEST SOME LEFT VENTRICULAR AND ATRIAL ENLARGEMENT AND VASCULAR CONGESTION WITH UNDERLYING FIBROSIS MAKING INTERSTITIAL EDEMA DIFFICULT TO EXCLUDE. THERE MAY BE SOME FLUID IN THE CHEST WITH SMALL CHANGES TO THE CP ANGLES AND ACCENTUATION OF THE RIGHT MINOR FISSURE SUGGESTING SOME FLUID. NO DENSE CONSOLIDATION WITH AIR BRONCHOGRAMS. NO MISSY EDEMA. <Electronically signed by Mateo Sin > 05/13/20 [id number]
--- NOTE | 2020-05-14 11:02 | ECGEPIP ---
[facility] Test Date: 2020-05-13 Pat Name: GENI HOWARD Department: Room: - Gender: Female Hand Bulldozer: MICHAEL : 1935 Requested By: ISH FRAZIER Order Number: [id number] Reading MD: Indio Barr Measurements Intervals [place] Rate: 83 P: DE: QRS: 28 QRSD: 76 T: 224 QT: 378 QTc: 444 Interpretive Statements Atrial fibrillation ST & T wave abnormality, consider inferolateral ischemia Similar to tracing done 04-24-20 Electronically Signed on 05-14-2020 11:02:37 EDT by Indio Barr
== END ==
LOC: SKLAB4 11:36
PROVIDERS: ATTEND Internal Medicine
DX: I51.7 Cardiomegaly (principal); J84.10 Pulmonary fibrosis, unspecified

== ENCOUNTER → 2020-05-15 | Outpatient (REF) | payer MEDICARE, MEDICAID ==
[2020-05-15 09:20] LABS: HEMATOCRIT 27.7 % (36.0-47.0); HEMOGLOBIN 8.6 g/dl (12.0-15.5); MEAN CORPUSCULAR HEMOGLOBIN 28.4 pg (27.0-33.0); MEAN CORPUSCULAR VOLUME 91.4 fl (80.0-96.0); PLATELET COUNT, AUTOMATED 138 10^3/uL (150-450); RED BLOOD COUNT 3.03 10^6/uL (4.00-5.40); WHITE BLOOD COUNT 8.3 10^3/uL (4.0-10.0)
[2020-05-15 09:51] LABS: CALCIUM LEVEL 8.6 MG/DL (8.8-10.2); CREATININE FOR GFR 1.1 MG/DL (0.55-1.30); GLOMERULAR FILTRATION RATE 50.4 (>32)
[2020-05-15 10:11] LABS: ALBUMIN 2.8 GM/DL (3.2-5.2); BILIRUBIN,DIRECT 0.2 MG/DL (0.0-0.2); BILIRUBIN,TOTAL 0.4 MG/DL (0.2-1.0); DIGOXIN LEVEL 1.6 NG/ML (0.5-2.0); MAGNESIUM LEVEL 1.7 MG/DL (1.8-2.4); PERCENT SATURATION 19.6 % (13.2-45.0); TOTAL PROTEIN 6.9 GM/DL (6.4-8.2)
--- NOTE | 2020-05-15 10:33 | REP ---
INDICATION: CHF. COMPARISON: Portable chest dated 05/03/2020. TECHNIQUE: Upright PA and lateral chest. FINDINGS: The costophrenic angles are mildly faced suggestive of small bilateral pleural effusions. The interstitial coarsening identified previously has improved. Cardiac size is upper normal. The santosh, mediastinum, and skeletal structures are unchanged. There is scoliosis convex right at the thoracolumbar junction, unchanged. IMPRESSION: Small bilateral pleural effusions, similar to the prior study. The previous interstitial coarsening as improved. <Electronically signed by Anupam Rivera > 05/15/20 [id number]
== END ==
LOC: SKLAB4 05:46
PROVIDERS: ATTEND Internal Medicine
DX: J90 Pleural effusion, not elsewhere classified (principal); I50.9 Heart failure, unspecified; Z20.822 Contact with and (suspected) exposure to COVID-19
CPT/HCPCS: 36415; 71046; 80048; 80076; 80162; 82728; 83550; 83735; 83880; 85027; U0003